=== PATIENT | female | born 2000 | race Caucasian/White ===

== ENCOUNTER 2021-08-21 07:59 | Emergency (ER) | payer OTHER, SELFPAY ==
--- NOTE | ~2021-08-21 | CT_ITS ---
EXAMINATION: CT abdomen pelvis w con DATE: 08/21/2021 09:45 INDICATION: Left flank pain. Left lower quadrant abdominal pain. TECHNIQUE: Computed tomography (CT) of the abdomen and pelvis was performed with 100 mL Omnipaque 350 intravenous contrast. Automated exposure control and iterative reconstruction technique were employe d. The dose-length product was 244.66 mGy-cm. COMPARISON: None. FINDINGS: The visualized portions of the lung bases are clear without pneumonia or pleural effusion. The heart size is normal. No pericardial effusion. The liver, gallbladder, spleen, pancreas, adrenal glands, and left kidney are normal. There are cysts in right kidney measuring up to 9 mm. There are n o dilated loops of bowel. The appendix is not visualized. There are no pathologically enlarged lymph nodes. There is no free intraperitoneal fluid. There is a small umbilical hernia containing fat. Ther e is a chronic left L5 pars defect. IMPRESSION: 1. Small umbilical hernia containing fat. Reviewed, dictated and finalized at location A.
[2021-08-21 08:12] VITALS: BP 100/72; PULSE 124; RESP 20; TEMP 37.3; O2SAT 96
[2021-08-21 08:43] LABS: Basophils Percent Auto 0.1 % (0.2-1.2); Eosinophils Percent Auto 0.1 % (0-4.4); Hematocrit 42.9 % (37.0-47.0); Hemoglobin 14.7 g/dL (12.0-15.0); Immature Granulocyte Absolute 0.02 K/mm3 (0.00-0.031); Immature Granulocyte Percent A 0.2 % (0-0.5); Lymphocytes Absolute Auto 0.41 K/mm3 (0.9-3.2); Lymphocytes Percent Auto 4.3 % (18.3-44.2); Mean Corpuscular HGB Conc 34.3 g/dl (32-36); Mean Corpuscular Hemoglobin 32.2 pg (26-34); Mean Corpuscular Volume 93.9 fl (80-100); Mean Platelet Volume 10.3 fl (7.4-10.4); Monocytes Absolute Auto 0.4 K/mm3 (0.1-0.6); Monocytes Percent Auto 3.7 % (2.6-8.5); Neutrophils Absolute Auto 8.8 K/mm3 (1.3-6.7); Neutrophils Percent Auto 91.6 % (45.5-73.1); Platelet Count Result 199 k/mm3 (150-375); Red Blood Count 4.57 M/mm3 (4.2-5.4); Red Cell Distribution Width 13.4 % (11.5-14.5); White Blood Count 9.6 K/mm3 (4.5-10.0)
[2021-08-21 08:48] LABS: Alanine Aminotransferase 153 U/L (4-35); Albumin Level 4.4 g/dL (3.5-5.1); Alkaline Phosphatase 103 U/L (38-126); Anion Gap 12 mmol/L (8-16); Aspartate Amino Transferase 72 U/L (14-36); Bilirubin,Total 0.9 mg/dL (0.2-1.3); Blood Urea Nitrogen 12 mg/dL (7-17); Calcium 9.1 mg/dL (8.4-10.2); Carbon Dioxide 25 mmol/L (22-30); Chloride 104 mmol/L (98-107); Estimated CRCL calculation 83 ml/min; Estimated Glomerular Filt Rate > 60; Glucose 133 mg/dL (65-110); Lipase 67 U/L (23-300); Potassium 3.7 mmol/L (3.4-5.0); Sodium 141 mmol/L (137-145)
[2021-08-21 09:01] LABS: Add Urine Microscopic? YES; Appearance Urine Clear (Clear); Bacteria Urine Trace /hpf; Bilirubin Urine Negative (Negative); Blood Urine 1+ (Negative); Color Urine Yellow (Yellow); Glucose Urine UA Negative (Negative); Ketones Urine Trace mg/dL (Negative); Leukocyte Esterase Ur Negative LEU/UL (Negative); Mucus Urine Rare /lpf; Nitrate Urine Negative (Negative); Protein Urine 1+ mg/dL (Negative); Specific Grav Ur 1.024 (1.001-1.035); Squamous Epithelial Cell Urine Few /hpf (Few); Urobilinogen Urine Negative mg/dL (<2.0); WBC Urine 0-3 /hpf
--- NOTE | 2021-08-21 09:38 | ED.GENADULT ---
HPI - General Adult General Chief complaint: Nausea/Vomiting/Diarrhea Stated complaint: vomiting Time Seen by Provider: 08/21/21 09:13 Source: patient Mode of arrival: ambulatory History of Present Illness HPI narrative: 21 years old white female presents with nausea and vomiting started yesterday afternoon associated with pain at the left flank area. Stressed with her menstrual cycle 2 days ago. Patient sexually active denies any urinary symptoms. Patient is not vaccinated for COVID-19, Related Data Home Medications Medication Instructions Recorded Confirmed paroxetine HCl [Paxil] 20 mg PO QAM 08/21/21 Allergies Allergy/AdvReac Type Severity Reaction Status Date / Time No Known Allergies Allergy Verified 08/21/21 08:15 Review of Systems Review of Systems: CONSTITUTIONAL: Denies fever, chills, or sweats. EYES: Denies visual changes, redness, or discharge. ENT: Denies rhinorrhea, congestion, sore throat, or otalgia. CARDIOVASCULAR: Denies chest pain, palpitations, or edema. RESPIRATORY: Denies cough or dyspnea. GASTROINTESTINAL: Denies abdominal pain, nausea, vomiting, or diarrhea. GENITOURINARY: Denies dysuria or hematuria. SKIN: Denies rash or itching. MUSCULOSKELETAL: Denies back pain, joint pain, or myalgia. NEUROLOGIC: Denies headache, numbness, or weakness. PSYCHIATRIC: Denies anxiety or depression. Exam Narrative: General appearance: Well-developed, well-nourished Skin: Normal color Head: Normocephalic, nontraumatic Eyes: Clear conjunctiva ENT: Oropharynx normal, ears normal, nose normal Neck: Supple, nontender Chest and respiratory: Airway patent, no respiratory distress, no accessory muscle use Heart: Regular rate/rhythm Abdomen: Diffuse tenderness left flank, slight left lower quadrant, no guarding or rebound, quiet bowel sounds Vascular: Normal peripheral pulses, normal capillary refill. Musculoskeletal: Normal range of motion, nontender back Neurologic: Alert and oriented ?3, [employer] is normal as tested, no gross motor deficit Course Course Emergency Course: Stable Vital Signs Vital signs: Vital Signs Temperature 37.3 C 08/21/21 08:12 Pulse Rate 124 H 08/21/21 08:12 Respiratory Rate 20 08/21/21 08:12 Blood Pressure 100/72 08/21/21 08:12 Pulse Oximetry 96 08/21/21 08:12 Temperature 37.3 C 08/21/21 08:12 Pulse Rate 124 H 08/21/21 08:12 Respiratory Rate 20 08/21/21 08:12 Blood Pressure 100/72 08/21/21 08:12 Pulse Oximetry 96 08/21/21 08:12 Medical Decision Making MDM Narrative Medical decision making narrative: Urinary tract infection, kidney stone is my concern. Labs, CT abdomen pelvis with IV contrast, IV fluid, IV morphine and Zofran ordered Work-up showed no significant findings to explain patient left flank pain and vomiting. Patient will be discharged on Zofran and ibuprofen as needed. Differential Diagnosis Differential Diagnosis: Kidney stone, pyelonephritis, urinary tract infection, constipation Vital Signs Vital Signs: Vital Signs Temperature 37.3 C 08/21/21 08:12 Pulse Rate 124 H 08/21/21 08:12 Respiratory Rate 20 08/21/21 08:12 Blood Pressure 100/72 08/21/21 08:12 Pulse Oximetry 96 08/21/21 08:12 Temperature 37.3 C 08/21/21 08:12 Pulse Rate 124 H 08/21/21 08:12 Respiratory Rate 20 08/21/21 08:12 Blood Pressure 100/72 08/21/21 08:12 Pulse Oximetry 96 08/21/21 08:12 Lab Data Result diagrams: 08/21/21 08:27 08/21/21 08:27 Labs: Lab Results 08/21/21 08/21/21 08/21/21 Range/Units 08:27 08:27 08:27 WBC 9.6 (4.5-10.0) K/mm3 RBC 4.57 (4.2-5.4) M/mm3 Hgb 14.7 (12.0-15.0) g/dL Hct
[2021-08-21] MEDS: ONDANSETRON INJ 4 MG/2 ML VIAL 8 MG IV PUSH (09:56)
[2021-08-21] MEDS: SODIUM CHLORIDE 0.9% IV 1,000 ML 999 ML IV CONT (09:56)
[2021-08-21] MEDS: MORPHINE SULFATE (*CRX) 4 MG/ML INJ IV PUSH (09:57)
--- NOTE | 2021-08-21 10:40 | PC.NURSE ---
pt states pain is 8/10 and continues to c/o nausea. requesting additional meds. edp aware.
[2021-08-21 10:55] VITALS: BP 99/69; PULSE 106; RESP 16
== END 2021-08-21 10:55 | disposition home or self-care (01) ==
PROVIDERS: Emergency Provider Emergency Medicine
DX: R11.2 Nausea with vomiting, unspecified (principal); K42.9 Umbilical hernia without obstruction or gangrene
CPT/HCPCS: 36415; 74177; 80053; 81001; 81025; 83690; 85025; 96361; 96374; 96375; 99284; J2270; J2405; J7030; Q9967

== ENCOUNTER 2022-03-13 10:45 | Emergency (ER) | payer OTHER, SELFPAY ==
--- NOTE | ~2022-03-13 | CT_ITS ---
EXAMINATION: CT abdomen pelvis w con DATE: 03/13/2022 14:36 INDICATION: Lower abdominal pain. Nausea, vomiting, diarrhea TECHNIQUE: Computed tomography (CT) of the abdomen and pelvis was performed with 100 CC Omnipaque 300 intravenous contrast. Automated exposure control and iterative reconstruction technique were employe d. Exam dose: 341.25 mGy-cm total exam DLP. COMPARISON: 08/21/2021 CT abdomen pelvis FINDINGS: The lung bases are clear. Normal heart size. No pericardial or pleural effusion. The liver, spleen, pancreas, gallbladder and bile ducts and pancreatic duct appear normal. Normal morphology of the adrenal glands. 8.5 mm and 5 mm upper pole right renal cysts. Pinpoint nonobstructing left renal calculus. No ureteral calculus or hydroureteronephrosis is noted. Retroverted uterus. The adnexal areas are unr emarkable other than 8 mm right ovarian cyst. The urinary bladder is normal in appearance. Normal caliber of the abdominal aorta. No intraperitoneal No bowel obstruction or intraperitoneal free air. Or retroperitoneal or pelvic mass lesion or adenopa thy or ascites. Small fat-containing umbilical hernia. Left L5 pars interarticularis defect. Included skeletal structures are otherwise remarkable. IMPRESSION: Right renal cysts Pinpoint nonobstructing left renal calculus Retroverted uterus Left L5 pars interarticularis defect Small fat-containing umbilical hernia Reviewed, dictated and finalized at Location [facility]. Reviewed, dictated and finalized at location B.
[2022-03-13 10:47] VITALS: BP 115/73; PULSE 120; RESP 16; TEMP 36.7; O2SAT 98
--- NOTE | 2022-03-13 12:34 | ED.NAVMDI ---
HPI - Nausea/Vomiting/Diarrhea General Chief complaint: Nausea/Vomiting/Diarrhea Stated complaint: vomiting/diarrhea Time Seen by Provider: 03/13/22 11:53 History of Present Illness HPI Narrative: 21 y/o female presents to the ER today for complaints of nausea, vomiting and diarrhea. It started around 6:30 this morning. She has not had any fever. She denies . She says that she gets intermittent sharp pains generalized through the abdomen. She says that it improves somewhat after emesis or diarrhea. She denies any urinary symptoms. No back pain. She has other family members with similar symptoms. Related Data Home Medications Medication Instructions Recorded Confirmed paroxetine HCl [Paxil] 20 mg PO QAM 08/21/21 albuterol sulfate INHALATION 03/13/22 metoprolol succinate PO 03/13/22 03/13/22 Allergies Allergy/AdvReac Type Severity Reaction Status Date / Time sertraline Allergy Headache Verified 03/13/22 11:05 Review of Systems Constitutional: Constitutional: Denies fever(s) and Denies weakness Eyes: Eyes: Reports as per HPI ENT: Denies nasal congestion and Reports sore throat Cardiovascular: Cardiovascular: Denies chest pain and Denies radiating jaw, neck or arm pain Respiratory: Respiratory: Reports no additional respiratory complaints, Denies cough and Denies dyspnea Gastrointestinal: Gastrointestinal: Reports abdominal pain, Reports diarrhea, Reports nausea and Reports vomiting Genitourinary: Genitourinary: Denies hematuria, Denies nocturia, Denies dysuria and Denies flank pain Musculoskeletal: Musculoskeletal: Denies back pain and Denies myalgias Integumentary/Breasts: Skin/Breast: Denies rash Neurologic: Denies dizziness Psychiatric: Psychiatric: Reports no additional psychiatric complaints Endocrine: Endocrine: Reports no additional endocrine complaints Hematologic/Lymphatic: Hematologic/Lymphatic: Reports no additional hematologic/lymphatic complaints Allergic/Immunologic: Allergic/Immunologic: Reports no additional allergic/immunologic complaints Exam Const: General: no acute distress and alert Orientation/consciousness: patient oriented x3 HENMT: Head: normal to inspection Eyes: Conjunctivae: conjunctivae normal Pupils: Equal, round and reactive pupils present Neck: Neck: normal visual inspection Chest: Chest palpation & inspection: normal inspection of the chest Resp: Effort & Inspection: normal respiratory effort Auscultation: clear to auscultation bilaterally Cardio: Rate: regular rate Rhythm: regular rhythm GI: GI Palp: Yes Soft to palpation, No Tenderness to palpation present (GI) and No Guarding due to palpation present (GI) Auscultation: normal bowel sounds : General: Yes no CVA tenderness Skin: General skin exam: normal color Neuro: General: patient oriented x3 and moves all extremities Extrem: General: normal to inspection Psych: Mental Status: mental status grossly normal Affect: normal affect Thought content: Yes Normal thought content present Course Vital Signs Vital signs: Vital Signs Temperature 36.7 C 03/13/22 10:47 Pulse Rate 120 H 03/13/22 10:47 Respiratory Rate 16 03/13/22 10:47 Blood Pressure 115/73 03/13/22 10:47 Pulse Oximetry 98 03/13/22 10:47 Temperature 36.7 C 03/13/22 10:47 Pulse Rate 120 H 03/13/22 10:47 Respiratory Rate 16 03/13/22 10:47 Blood Pressure 115/73 03/13/22 10:47 Pulse Oximetry 98 03/13/22 10:47 MDM - Nausea/Vomiting/Diarrhea Lab Data Attestation: I reviewed the patient's lab results. Result diagrams: 03/13/22 13:10 03/13/22 13:10 Labs: Lab Results 03/13/22 03/13/22 03/13/22 Range/Units 13:01 13:10 13:10 WBC 17.5 H (4.5-10.0) K/mm3 RBC 4.94 (4.2-5.4) M/mm3 Hgb 15.1 H (12.0-15.0) g/dL Hct 44.8 (37.0-47.0) % MCV 90.7 (80-100) fl MCH 30.6 (26-34) pg MCHC 33.7 (32-36) g/dl RDW 13.2 (11.5-14.5) % Pl
[2022-03-13 13:09] LABS: Add Urine Microscopic? YES; Appearance Urine Clear (Clear); Bilirubin Urine Negative (Negative); Blood Urine Trace-Intact (Negative); Color Urine Yellow (Yellow); Glucose Urine UA Negative (Negative); Ketones Urine Negative (Negative); Leukocyte Esterase Ur Negative LEU/UL (Negative); Nitrate Urine Negative (Negative); Protein Urine Negative (Negative); Urobilinogen Urine 0.2 mg/dL (<2.0)
[2022-03-13 13:12] LABS: Mucus Urine Rare /lpf; Squamous Epithelial Cell Urine Rare /hpf (Few); WBC Urine 0-3 /hpf
[2022-03-13] MEDS: ONDANSETRON INJ 4 MG/2 ML VIAL IV PUSH (13:14)
[2022-03-13] MEDS: SODIUM CHLORIDE 0.9% IV 1,000 ML 999 ML IV CONT (13:14)
[2022-03-13 13:25] LABS: Basophils Percent Auto 0.2 % (0.2-1.2); Eosinophils Percent Auto 0.1 % (0-4.4); Hematocrit 44.8 % (37.0-47.0); Hemoglobin 15.1 g/dL (12.0-15.0); Immature Granulocyte Absolute 0.06 K/mm3 (0.00-0.031); Immature Granulocyte Percent A 0.3 % (0-0.5); Lymphocytes Absolute Auto 0.61 K/mm3 (0.9-3.2); Lymphocytes Percent Auto 3.5 % (18.3-44.2); Mean Corpuscular HGB Conc 33.7 g/dl (32-36); Mean Corpuscular Hemoglobin 30.6 pg (26-34); Mean Corpuscular Volume 90.7 fl (80-100); Mean Platelet Volume 9.6 fl (7.4-10.4); Monocytes Absolute Auto 0.7 K/mm3 (0.1-0.6); Monocytes Percent Auto 3.8 % (2.6-8.5); Neutrophils Absolute Auto 16.2 K/mm3 (1.3-6.7); Neutrophils Percent Auto 92.1 % (45.5-73.1); Platelet Count Result 256 k/mm3 (150-375); Red Blood Count 4.94 M/mm3 (4.2-5.4); Red Cell Distribution Width 13.2 % (11.5-14.5); White Blood Count 17.5 K/mm3 (4.5-10.0)
[2022-03-13 13:36] LABS: Alanine Aminotransferase 21 U/L (6-35); Albumin Level 4.5 g/dL (3.5-5.1); Alkaline Phosphatase 127 U/L (38-126); Anion Gap 10 mmol/L (8-16); Aspartate Amino Transferase 28 U/L (14-36); Bilirubin,Total 0.9 mg/dL (0.2-1.3); Blood Urea Nitrogen 16 mg/dL (7-17); Carbon Dioxide 27 mmol/L (22-30); Chloride 103 mmol/L (98-107); Estimated CRCL calculation 96 ml/min; Estimated Glomerular Filt Rate > 60; Glucose 131 mg/dL (65-110); Lipase 100 U/L (23-300); Potassium 3.8 mmol/L (3.4-5.0); Sodium 140 mmol/L (137-145)
[2022-03-13 14:04] LABS: SARS-CoV-2 RNA PCR Negative
[2022-03-13] MEDS: PROMETHAZINE HCL 25 MG/ML AMPUL 12.5 MG IV PUSH (14:49)
[2022-03-13] MEDS: KETOROLAC 30 MG/ML VIAL (*BKC) IV PUSH (15:38)
--- NOTE | 2022-03-13 15:54 | PC.NURSE ---
PT STATES SHE WAS TREATED POORLY BECAUSE OF HER RACE AND POOR INSURANCE . PT STATED HER MOTHER IN LAW WAS NOT ALLOWED TO STAY WITH HER IN THE WAITING ROOM AND SHE (THE PT) HAS WAITED A LONG TIME FOR ANYONE TO HELP HER .
== END 2022-03-13 16:03 | disposition home or self-care (01) ==
PROVIDERS: Emergency Provider Nurse Practitioner Family; PCP Internal Medicine
DX: K52.9 Noninfective gastroenteritis and colitis, unspecified (principal); Z20.822 Contact with and (suspected) exposure to COVID-19; N28.1 Cyst of kidney, acquired; N20.0 Calculus of kidney; N85.4 Malposition of uterus; K42.9 Umbilical hernia without obstruction or gangrene
CPT/HCPCS: 36415; 74177; 80053; 81001; 81025; 83690; 85025; 96361; 96374; 96375; 99284; C9803; J1885; J2405; J2550; J7030; Q9967; U0003; U0005

== ENCOUNTER 2022-09-21 12:49 | Observation (INO) | payer OTHER, SELFPAY ==
--- NOTE | ~2022-09-21 | US_ITS ---
EXAMINATION: US abdomen complete DATE: 09/21/2022 14:50 INDICATION: check for appendix and gallbladder, right side pain TECHNIQUE: Multiple grayscale and Doppler ultrasound images of the abdomen were obtained. COMPARISON: CT abdomen and pelvis 03/13/2022. FINDINGS: Pancreas not visualized. The liver is normal with normal echogenicity and echotexture. No s urface nodularity. Normal hepatopetal flow in the main portal vein. The gallbladder is normal with no abnormal wall thickening, pericholecystic fluid or stones. The common bile duct measures 4 mm. There was no sonographic Howard sign. The visualized portions of the inferior vena cava are normal. Aorta not visualized. The right kidney measures 10.9 x 4.2 x 6.2. The left kidney measures 11.5 x 4.6 x 5.5. The kidneys de monstrate normal parenchymal echogenicity. There is no hydronephrosis. The spleen is normal in appear ance and measures 13.6 cm. The right lower quadrant (area of pain) was carefully interrogated, revealing no abnormality, however bowel gas did create areas of obscuration. The appendix was not positively identified. IMPRESSION: Appendix not visualized, this examination is equivocal in regards to the diagnosis of appendicitis. M ild splenomegaly. Pancreas not visualized. Otherwise normal abdominal ultrasound findings. Reviewed, dictated and finalized at location K. ATION THERAPIST IMPRESSION: Appendix not visualized, this examination is equivocal in regards to the diagno sis of appendicitis. Mild splenomegaly. Pancreas not visualized. Otherwise norm al abdominal ultrasound findings.
[2022-09-21] MEDS: ONDANSETRON INJ 4 MG/2 ML VIAL IV PUSH (13:36)
[2022-09-21] MEDS: LACTATED RINGERS 1,000 ML 125 ML IV CONT (13:37)
[2022-09-21 13:38] VITALS: BP 95/60; PULSE 102
[2022-09-21 13:45] VITALS: BP 96/63; PULSE 99
[2022-09-21 14:06] LABS: Basophils Percent Auto 0.1 % (0.2-1.2); Hematocrit 35.5 % (37.0-47.0); Hemoglobin 11.9 g/dL (12.0-15.0); Immature Granulocyte Absolute 0.06 K/mm3 (0.00-0.031); Immature Granulocyte Percent A 0.6 % (0-0.5); Lymphocytes Absolute Auto 0.61 K/mm3 (0.9-3.2); Lymphocytes Percent Auto 6.6 % (18.3-44.2); Mean Corpuscular HGB Conc 33.5 g/dl (32-36); Mean Corpuscular Hemoglobin 31.5 pg (26-34); Mean Corpuscular Volume 93.9 fl (80-100); Monocytes Absolute Auto 0.4 K/mm3 (0.1-0.6); Monocytes Percent Auto 4.1 % (2.6-8.5); Neutrophils Absolute Auto 8.2 K/mm3 (1.3-6.7); Neutrophils Percent Auto 88.6 % (45.5-73.1); Platelet Count Result 203 k/mm3 (150-375); Red Blood Count 3.78 M/mm3 (4.2-5.4); Red Cell Distribution Width 13.9 % (11.5-14.5); White Blood Count 9.3 K/mm3 (4.5-10.0)
[2022-09-21 14:07] LABS: Appearance Urine Slightly Cloudy (Clear); Bilirubin Urine 1+ (Negative); Blood Urine Negative (Negative); Color Urine Yellow (Yellow); Glucose Urine UA Negative (Negative); Ketones Urine 4+ mg/dL (Negative); Leukocyte Esterase Ur Negative LEU/UL (Negative); Nitrate Urine Negative (Negative); Protein Urine 1+ mg/dL (Negative); Specific Grav Ur 1.025 (1.001-1.035)
[2022-09-21 14:09] LABS: Bacteria Urine Trace /hpf; Mucus Urine Rare /lpf; Squamous Epithelial Cell Urine Many /hpf (Few)
[2022-09-21 14:12] LABS: Add Urine Microscopic? YES
[2022-09-21 14:20] LABS: Alanine Aminotransferase 14 U/L (6-35); Albumin Level 3.7 g/dL (3.5-5.1); Alkaline Phosphatase 122 U/L (38-126); Amylase 76 U/L (30-110); Anion Gap 9 mmol/L (8-16); Aspartate Amino Transferase 20 U/L (14-36); Bilirubin,Total 0.5 mg/dL (0.2-1.3); Blood Urea Nitrogen 9 mg/dL (7-17); Calcium 8.3 mg/dL (8.4-10.2); Carbon Dioxide 24 mmol/L (22-30); Chloride 105 mmol/L (98-107); Estimated Glomerular Filt Rate > 60; Glucose 95 mg/dL (65-110); Lipase 71 U/L (23-300); Potassium 3.6 mmol/L (3.4-5.0); Sodium 138 mmol/L (137-145)
[2022-09-21] MEDS: LACTATED RINGERS 1,000 ML 250 ML IV CONT (15:07)
--- NOTE | 2022-09-21 15:32 | PC.NURSE ---
Dr. Desirae Becerra responded to page. Lab result and ultrasound result reported. pt still has nausea. phenegran order received. okay to discharge when pt feels better.
[2022-09-21] MEDS: PROMETHAZINE HCL 25 MG/ML AMPUL 12.5 MG IV PUSH (15:46)
--- NOTE | 2022-09-21 18:00 | PC.NURSE ---
pt states nausea is still there but pain is gone. requested to be discharged.
--- NOTE | 2022-09-24 07:45 | P.PNOB_ITS ---
OB - Triage/Final Diagnosis Visit Information Reason for evaluation: threatened labor Comments/Additional reasons for admission: I have assessed the risk for this patient, Codi Keller, and determined that she would benefit from observation care. Evaluation Laboratory results: Laboratory Tests 09/21/22 09/21/22 09/21/22 13:57 13:57 13:57 WBC 9.3 RBC 3.78 L Hgb 11.9 L D Hct 35.5 L MCV 93.9 MCH 31.5 MCHC 33.5 RDW 13.9 Plt Count 203 MPV 10.0 Immature Gran % (Auto) 0.6 H Neut % (Auto) 88.6 H Lymph % (Auto) 6.6 L [place] % (Auto) 4.1 Eos % (Auto) 0.0 Baso % (Auto) 0.1 L Lymph # (Auto) 0.61 L [place] # (Auto) 0.4 Eos # (Auto) 0.0 Baso # (Auto) 0.0 Abs Immat Gran (auto) 0.06 H Absolute Neuts (auto) 8.2 H Absolute Nucleated RBC 0.0 Nucleated RBC % 0.0 Sodium 138 Potassium 3.6 Chloride 105 Carbon Dioxide 24 Anion Gap 9 BUN 9 D Creatinine 0.60 L Estim Creat Clear Calc Not Reportable Estimated GFR > 60 Glucose 95 Calcium 8.3 L Total Bilirubin 0.5 AST 20 ALT 14 Alkaline Phosphatase 122 Total Protein 7.0 Albumin 3.7 Amylase 76 Lipase 71 Urine Color Yellow Urine Appearance Slightly cloudy Urine pH 7.0 Ur Specific [place] 1.025 Urine Protein 1+ H Urine Glucose (UA) Negative Urine Ketones 4+ H Ur Blood (Man) Negative Urine Nitrate Negative Urine Bilirubin 1+ H Urine Urobilinogen 1.0 Leukocyte Esterase Rfl Negative Urine RBC 6-10 H Urine WBC 4-6 H Ur Squamous Epith Cells Many H Urine Bacteria Trace Urine Mucus Rare
== END 2022-09-21 18:04 | disposition home or self-care (01) ==
PROVIDERS: Admitting Provider Obstetrics & Gynecology; PCP Internal Medicine; Visit Provider Obstetrics & Gynecology
DX: O47.02 False labor before 37 completed weeks of gestation, second trimester (principal); Z3A.21 21 weeks gestation of pregnancy
CPT/HCPCS: 36415; 76700; 80053; 81001; 82150; 83690; 85025; 96361; 96374; 96375; G0378; G0379; J2405; J2550; J7120

== ENCOUNTER 2022-11-27 21:22 | Observation (INO) | payer OTHER, SELFPAY ==
[2022-11-27] VITALS (22 sets, daily range): BP systolic 96–109; BP diastolic 61–73; PULSE 101–132; O2SAT 96–99; BMI 27.5
[2022-11-27 21:59] LABS: Appearance Urine Slightly Cloudy (Clear); Bilirubin Urine Negative (Negative); Blood Urine Negative (Negative); Color Urine Yellow (Yellow); Glucose Urine UA Negative (Negative); Ketones Urine 4+ mg/dL (Negative); Leukocyte Esterase Ur 1+ LEU/UL (Negative); Nitrate Urine Negative (Negative); Protein Urine 1+ mg/dL (Negative); Specific Grav Ur >= 1.030 (1.001-1.035); Urobilinogen Urine 0.2 mg/dL (<2.0); pH Urine 5.5 (5.0-9.0)
--- NOTE | 2022-11-27 21:59 | OBADM ---
This patient, Codi Keller, admitted to the OB room OB Post 115 for observation. Patient/family oriented to hospital policies and general routines including ID bracelet, bed and alarms, visiting hours, pain management, procedures, bathroom and other care routines, personal items, smoking policy, room service/diet, and visiting hours. Patient/Family are encouraged to report perceived risks to care and to ask questions if they do not understand what they are told or what they should do.
[2022-11-27 22:06] LABS: Bacteria Urine Trace /hpf; Mucus Urine Rare /lpf; Squamous Epithelial Cell Urine Many /hpf (Few); WBC Urine 21-30 /hpf
[2022-11-27 22:07] LABS: Add Urine Microscopic? YES
[2022-11-27] MEDS: DEXTROSE 5%/LACTATED RINGERS 1,000 ML 999 ML IV CONT (23:31)
[2022-11-27] MEDS: ONDANSETRON INJ 4 MG/2 ML VIAL IV PUSH (23:32)
[2022-11-28 00:09] VITALS: PULSE 99; O2SAT 97
[2022-11-28 00:14] VITALS: PULSE 93; O2SAT 100
[2022-11-28] MEDS: DEXTROSE 5%/LACTATED RINGERS 1,000 ML 500 ML IV CONT (01:00)
[2022-11-28 01:24] VITALS: BP 100/58; PULSE 115
--- NOTE | 2022-12-20 12:38 | P.PNOB_ITS ---
OB - Triage/Final Diagnosis Visit Information Comments/Additional reasons for admission: I have assessed the risk for this patient, Codi Keller, and determined that she would benefit from observation care. Evaluation Laboratory results: Laboratory Tests 11/27/22 21:50 Urine Color Yellow Urine Appearance Slightly cloudy Urine pH 5.5 Ur Specific [place] >= 1.030 Urine Protein 1+ H Urine Glucose (UA) Negative Urine Ketones 4+ H Ur Blood (Man) Negative Urine Nitrate Negative Urine Bilirubin Negative Urine Urobilinogen 0.2 Leukocyte Esterase Rfl 1+ H Urine RBC 3-5 H Urine WBC 21-30 H Ur Squamous Epith Cells Many H Urine Bacteria Trace Urine Mucus Rare Final Diagnosis (1) Nausea and vomiting during : Code(s): O21.9 - Vomiting of , unspecified Status: Acute
== END 2022-11-28 03:14 | disposition home or self-care (01) ==
PROVIDERS: Admitting Provider Obstetrics & Gynecology; PCP Internal Medicine; Visit Provider Obstetrics & Gynecology
DX: O26.899 Other specified pregnancy related conditions, unspecified trimester (principal); R11.2 Nausea with vomiting, unspecified; R10.9 Unspecified abdominal pain
CPT/HCPCS: 81001; 87086; 96361; 96374; G0378; G0379; J2405; J7121

== ENCOUNTER 2022-12-29 19:18 | Observation (INO) | payer OTHER, SELFPAY ==
[2022-12-29 19:30] VITALS: BMI 29.2
--- NOTE | 2022-12-29 19:30 | OBADM ---
This patient, Codi Keller, admitted to the OB room [facility] Post 113 for observation. Patient/family oriented to hospital policies and general routines including ID bracelet, bed and alarms, visiting hours, pain management, procedures, bathroom and other care routines, personal items, smoking policy, room service/diet, and visiting hours. Patient/Family are encouraged to report perceived risks to care and to ask questions if they do not understand what they are told or what they should do.
[2022-12-29 19:46] VITALS: BP 103/68; PULSE 66
--- NOTE | 2023-01-01 07:21 | PM.OBTRLD ---
OB - Triage/Final Diagnosis Visit Information Date of evaluation: 01/01/23 Reason for evaluation: threatened labor Comments/Additional reasons for admission: I have assessed the risk for this patient, Codi Crane Luis Mmago, and determined that she would benefit from observation care.
== END 2022-12-29 20:37 | disposition home or self-care (01) ==
PROVIDERS: Admitting Provider Obstetrics & Gynecology; PCP Internal Medicine; Visit Provider Obstetrics & Gynecology
DX: O47.03 False labor before 37 completed weeks of gestation, third trimester (principal); O24.419 Gestational diabetes mellitus in pregnancy, unspecified control; Z3A.35 35 weeks gestation of pregnancy
CPT/HCPCS: 84112; G0378

== ENCOUNTER 2023-01-10 10:00 | Outpatient (RCR) | payer OTHER, SELFPAY ==
[2022-11-21 08:56] VITALS: BMI 24.1
[2022-11-21 08:57] VITALS: BMI 24.1
== END 2023-01-13 07:16 | disposition home or self-care (01) ==
LOC: ANHOBOP 10:00
PROVIDERS: PCP Internal Medicine; Visit Provider Obstetrics & Gynecology
DX: O24.319 Unspecified pre-existing diabetes mellitus in pregnancy, unspecified trimester (principal); Z71.3 Dietary counseling and surveillance; Z71.89 Other specified counseling
CPT/HCPCS: 97802; G0108

== ENCOUNTER 2023-01-15 19:12 | Observation (INO) | payer OTHER, SELFPAY ==
--- NOTE | 2023-01-15 20:33 | OBADM ---
This patient, Codi Keller, admitted to the OB room Labor/Delivery/Recovery 107 for observation. Patient/family oriented to hospital policies and general routines including ID bracelet, bed and alarms, visiting hours, pain management, procedures, bathroom and other care routines, personal items, smoking policy, room service/diet, and visiting hours. Patient/Family are encouraged to report perceived risks to care and to ask questions if they do not understand what they are told or what they should do.
--- NOTE | 2023-01-17 06:31 | PM.OBTRLD ---
OB - Triage/Final Diagnosis Visit Information Reason for evaluation: threatened labor Comments/Additional reasons for admission: I have assessed the risk for this patient, Codi Keller, and determined that she would benefit from observation care.
== END 2023-01-15 20:45 | disposition home or self-care (01) ==
PROVIDERS: Admitting Provider Obstetrics & Gynecology; PCP Internal Medicine; Visit Provider Obstetrics & Gynecology
DX: O47.9 False labor, unspecified (principal); O26.899 Other specified pregnancy related conditions, unspecified trimester; R10.9 Unspecified abdominal pain; O24.419 Gestational diabetes mellitus in pregnancy, unspecified control; Z3A.00 Weeks of gestation of pregnancy not specified
CPT/HCPCS: G0378; G0379

== ENCOUNTER 2023-01-17 10:25 | Outpatient (RCR) | payer OTHER, SELFPAY ==
[2022-12-13 12:03] VITALS: BP 97/61; PULSE 98
[2022-12-20 11:28] VITALS: BP 107/70; PULSE 85
[2022-12-27 10:38] VITALS: BP 104/66; PULSE 81
[2023-01-03 14:05] VITALS: BP 100/67; PULSE 81
[2023-01-05 22:50] VITALS: BP 112/72; PULSE 95
--- NOTE | 2023-01-05 22:50 | PC.NURSE ---
Labor precautions reviewed with patient. Patient educated on kick counts. Patient states understanding of education and states she is comfortable going home and is feeling baby move more. VSS. Patient left OB unit ambulating at 2256.
[2023-01-10 10:33] VITALS: BP 101/67; PULSE 116
[2023-01-17 10:52] VITALS: BP 109/72; PULSE 106
== END 2023-02-21 15:11 | disposition home or self-care (01) ==
LOC: ANHOBOP 10:25
PROVIDERS: PCP Internal Medicine; Visit Provider Obstetrics & Gynecology
DX: O24.419 Gestational diabetes mellitus in pregnancy, unspecified control (principal); Z3A.33 33 weeks gestation of pregnancy; Z3A.34 34 weeks gestation of pregnancy; Z3A.35 35 weeks gestation of pregnancy; O36.8130 Decreased fetal movements, third trimester, not applicable or unspecified; Z3A.36 36 weeks gestation of pregnancy; Z3A.37 37 weeks gestation of pregnancy; Z3A.38 38 weeks gestation of pregnancy
CPT/HCPCS: 59025

== ENCOUNTER 2023-01-22 10:49 | Inpatient (IN) | payer OTHER, SELFPAY ==
[2023-01-22] VITALS (146 sets, daily range): BP systolic 65–127; BP diastolic 25–93; PULSE 25–133; TEMP 36.6; O2SAT 76–100; BMI 30.2
[2023-01-22 11:43] LABS: Glucose Point of Care 79 mg/dl (65-105)
[2023-01-22 11:47] LABS: Eosinophils Percent Auto 0.6 % (0-4.4); Hematocrit 31.8 % (37.0-47.0); Hemoglobin 10.1 g/dL (12.0-15.0); Immature Granulocyte Percent A 0.4 % (0-0.5); Lymphocytes Percent Auto 23.7 % (18.3-44.2); Mean Corpuscular HGB Conc 31.8 g/dl (32-36); Mean Corpuscular Hemoglobin 25.8 pg (26-34); Mean Corpuscular Volume 81.3 fl (80-100); Mean Platelet Volume 11.7 fl (7.4-10.4); Monocytes Percent Auto 5.7 % (2.6-8.5); Neutrophils Percent Auto 69.4 % (45.5-73.1); Platelet Count Result 187 k/mm3 (150-375); Red Blood Count 3.91 M/mm3 (4.2-5.4); Red Cell Distribution Width 14.6 % (11.5-14.5); White Blood Count 10.1 K/mm3 (4.5-10.0)
[2023-01-22 11:48] LABS: Basophils Percent Auto 0.2 % (0.2-1.2); Eosinophils Absolute Auto 0.1 K/mm3 (0-0.3); Immature Granulocyte Absolute 0.04 K/mm3 (0.00-0.031); Monocytes Absolute Auto 0.6 K/mm3 (0.1-0.6)
[2023-01-22] MEDS: LACTATED RINGERS 1,000 ML 125 ML IV CONT ×3 (11:50→18:38)
--- NOTE | 2023-01-22 11:56 | LDADM ---
This patient, Codi Keller, was admitted to Labor/Delivery/Recovery 108 on 01/22/23 at 10:49. Plans for labor, pain management and were discussed with patient. Patient/family oriented to hospital policies and general routines including ID bracelet, bed and alarms, visiting hours, pain management, procedures, bathroom and other care routines, personal items, smoking policy, room service/diet and guest tray routines, security routines, and visiting hours. Patient/Family are encouraged to report perceived risks to care and to ask questions if they do not understand what they are told or what they should do. See OBIX for further documentation.
[2023-01-22] MEDS: fentaNYL CITRATE INJ (*CRX) 100 MCG/2 ML VIAL 50 MCG IV PUSH (12:04)
--- NOTE | 2023-01-22 13:03 | WPDANESEPP ---
Anes - Eval Pre Procedure Procedure: Labor epidural Date/Time: 01/22/23 13:03 Surgeon: Janina Preop Diagnosis: Pain during labor Pre Op Diagnosis: iol Patient Data Age: 22 Gender: F Height: 1.63 m Weight: 80 kg Last Vital Signs Pulse 101 H 01/22/23 13:00 BP 127/78 01/22/23 13:00 Pulse Ox 100 01/22/23 13:00 O2 Del Method Room Air 01/22/23 11:52 Allergies Allergy/AdvReac Type Severity Reaction Status Date / Time Latex, Natural Rubber Allergy Rash Verified 01/03/23 13:55 midodrine Allergy Rash Verified 01/03/23 13:39 sertraline AdvReac Headache Verified 01/03/23 13:39 Home Medications Medication Instructions Recorded Confirmed Type ondansetron HCl 4 mg tablet 4 mg PO Q6H PRN nausea and 08/21/21 12/20/22 Rx (Zofran) vomiting #10 tabs albuterol sulfate 90 mcg/actuation 2 puff inhalation Q4H PRN 03/13/22 12/20/22 History aerosol inhaler Shortness Of Breath metoprolol succinate 25 mg 25 mg PO HS 03/13/22 12/20/22 History tablet,extended release 24 hr promethazine 25 mg tablet 25 mg PO Q6H PRN nausea and 09/21/22 12/20/22 Rx vomiting #14 tabs fluoxetine 40 mg capsule 80 mg PO DAILY 01/03/23 01/03/23 History promethazine 12.5 mg tablet 12.5 mg PO Q6H PRN Nausea 01/03/23 01/03/23 History Laboratory Tests 01/22/23 01/22/23 01/22/23 11:39 11:40 11:40 WBC 10.1 K/mm3 H K/mm3 (4.5-10.0) RBC 3.91 M/mm3 L M/mm3 (4.2-5.4) Hgb 10.1 g/dL L g/dL (12.0-15.0) Hct 31.8 % L % (37.0-47.0) MCV 81.3 fl fl (80-100) MCH 25.8 pg L pg (26-34) MCHC 31.8 g/dl L g/dl (32-36) RDW 14.6 % H % (11.5-14.5) Plt Count 187 k/mm3 k/mm3 (150-375) MPV 11.7 fl H fl (7.4-10.4) Immature Gran % (Auto) 0.4 % % (0-0.5) Neut % (Auto) 69.4 % % (45.5-73.1) Lymph % (Auto) 23.7 % % (18.3-44.2) [place] % (Auto) 5.7 % % (2.6-8.5) Eos % (Auto) 0.6 % % (0-4.4) Baso % (Auto) 0.2 % % (0.2-1.2) Lymph # (Auto) 2.40 K/mm3 K/mm3 (0.9-3.2) [place] # (Auto) 0.6 K/mm3 K/mm3 (0.1-0.6) Eos # (Auto) 0.1 K/mm3 K/mm3 (0-0.3) Baso # (Auto) 0.0 K/mm3 K/mm3 (0.0-0.1) Abs Immat Gran (auto) 0.04 K/mm3 H K/mm3 (0.00-0.031) Absolute Neuts (auto) 7.0 K/mm3 H K/mm3 (1.3-6.7) Absolute Nucleated RBC 0.0 K/mm3 K/mm3 (0.0-0.012) Nucleated RBC % 0.0 % % (0.0-0.2) POC Capillary Glucose 79 mg/dl mg/dl (65-105) RPR Pending Blood Type Antibody Screen 01/22/23 11:40 WBC RBC Hgb Hct MCV MCH MCHC RDW Plt Count MPV Immature Gran % (Auto) Neut % (Auto) Lymph % (Auto) [place] % (Auto) Eos % (Auto) Baso % (Auto) Lymph # (Auto) [place] # (Auto) Eos # (Auto) Baso # (Auto) Abs Immat Gran (auto) Absolute Neuts (auto) Absolute Nucleated RBC Nucleated RBC % POC Capillary Glucose RPR Blood Type O Positive Antibody Screen Negative Patient hx anesthesia problems: none Family hx anesthesia problems: none Results Review: All pre-operative results and documents have been reviewed as part of the pre-operative evaluation. [facility] Family History Family History Father Hypertension Diabetes mellitus Cerebrovascular accident Grandparent Hypertension Diabetes mellitus Congestive heart failure Sibling Hypothyroid Social History Social History Smoking status: Never smoker Substance use: never Lack of Transportation: No Lack of Food: Never True Current Housing: I Have Housing Concerned About Future Housing: No Difficulty Paying Gas/
[2023-01-22] MEDS: ONDANSETRON INJ 4 MG/2 ML VIAL IV PUSH ×2 (14:31→20:27)
--- NOTE | 2023-01-22 15:30 | PM.IMHP ---
H&P: HPI History of Present Illness Date/Time: 01/22/23 16:24 Chief Complaint: Water broke Narrative: 22 y/o G1 at 39 1/7 weeks who had a gush of clear fluid at 0900 today, followed by contractions. A1DM, well controlled. GBS neg. Review of Systems Review of Systems: All systems reviewed & are unremarkable except as noted in HPI and below PMFSH Past Medical History Medical History Anxiety and depression Frequent headaches GERD (gastroesophageal reflux disease) Gestational diabetes mellitus (GDM) Surgical History Surgical History History of placement of ear tubes History of tonsillectomy Family History Family History Father Hypertension Diabetes mellitus Cerebrovascular accident Grandparent Hypertension Diabetes mellitus Congestive heart failure Sibling Hypothyroid Social History Social History Smoking status: Never smoker Substance use: never Lack of Transportation: No Lack of Food: Never True Current Housing: I Have Housing Concerned About Future Housing: No Difficulty Paying Gas/Electric Bills: No Difficulty Paying for Meds: No Currently Unemployed: No Education: High School Diploma/GED Difficulty w/ Childcare or Family Care: No Spiritual care concerns: No Meds Home Medications and Allergies Home Medications Medication Instructions Recorded Confirmed Type ondansetron HCl 4 mg tablet 4 mg PO Q6H PRN nausea and 08/21/21 01/22/23 Rx (Zofran) vomiting #10 tabs albuterol sulfate 90 mcg/actuation 2 puff inhalation Q4H PRN 03/13/22 01/22/23 History aerosol inhaler Shortness Of Breath metoprolol succinate 25 mg 25 mg PO HS 03/13/22 01/22/23 History tablet,extended release 24 hr promethazine 25 mg tablet 25 mg PO Q6H PRN nausea and 09/21/22 01/22/23 Rx vomiting #14 tabs fluoxetine 40 mg capsule 80 mg PO DAILY 01/03/23 01/22/23 History promethazine 12.5 mg tablet 12.5 mg PO Q6H PRN Nausea 01/03/23 01/03/23 History Allergies Allergy/AdvReac Type Severity Reaction Status Date / Time Latex, Natural Rubber Allergy Rash Verified 01/03/23 13:55 midodrine Allergy Rash Verified 01/03/23 13:39 sertraline AdvReac Headache Verified 01/03/23 13:39 Vital Signs Vital Signs - 24 hr 01/22/23 11:52 01/22/23 12:16 01/22/23 12:32 Pulse Rate 65 72 Blood Pressure 111/81 98/55 L Pulse Oximetry Oxygen Delivery Room Air 01/22/23 12:45 01/22/23 12:55 01/22/23 12:59 Pulse Rate 81 90 Blood Pressure 93/60 L 112/90 Pulse Oximetry 100 Oxygen Delivery 01/22/23 13:00 01/22/23 13:05 01/22/23 13:10 Pulse Rate 101 H Blood Pressure 127/78 Pulse Oximetry 100 100 100 Oxygen Delivery 01/22/23 13:15 01/22/23 13:19 01/22/23 13:20 Pulse Rate 110 H 102 H 92 Blood Pressure 112/86 117/85 121/84 Pulse Oximetry Oxygen Delivery 01/22/23 13:22 01/22/23 13:24 01/22/23 13:26 Pulse Rate 105 H 84 95 Blood Pressure 122/65 116/73 112/77 Pulse Oximetry 94 Oxygen Delivery 01/22/23 13:27 01/22/23 13:28 01/22/23 13:30 Pulse Rate 86 89 Blood Pressure 112/68 110/77 Pulse Oximetry 96 Oxygen Delivery 01/22/23 13:32 01/22/23 13:34 01/22/23 13:36 Pulse Rate 88 94 82 Blood Pressure 116/72 111/72 114/75 Pulse Oximetry 98 Oxygen Delivery 01/22/23 13:37 01/22/23 13:38 01/22/23 13:40 Pulse Rate 86 81 Blood Pressure 116/77 109/68 Pulse Oximetry 96 Oxygen Delivery 01/22/23 13:42 01/22/23 13:45 01/22/23 13:47 Pulse Rate 94 78 75 Blood Pressure 116/65 117/66 110/62 Pulse Oximetry 97 95 Oxygen Delivery 01/22/23 13:48 01/22/23 13:50 01/22/23 13:52 Pulse Rate 77 74 73 Blood Pressure 109/62 120/74 120/60 Pulse Oximetry 96 Oxygen Delivery 01/22/23 13:54 01/22/23 13:56 0
[2023-01-22] MEDS: METOPROLOL SUCCINATE EXT REL 25 MG TABCR PO (17:03)
[2023-01-22 17:09] LABS: Glucose Point of Care 56 mg/dl (65-105)
[2023-01-22] MEDS: FLUoxetine HCL 20 MG CAPSULE 60 MG PO (17:42)
[2023-01-22 21:00] LABS: Glucose Point of Care 72 mg/dl (65-105)
--- NOTE | 2023-01-22 21:19 | PM.OBPNLAB ---
Pain Control Date/time seen: 01/22/23 21:19 Comments: Pushing well. Pelvic Exam Dilation (cm): 10 Effacement (%): 100 station: +2 Contractions Contraction frequency: 3 Contraction pattern: Regular Status status: Category l Comments: Accuchecks normal Assessment and Plan Comments: Continue pushing.
[2023-01-22] MEDS: OXYTOCIN 30 UNITS/NS 500 ML 30 UNITS/500 ML BAG 999 UNITS IV CONT (21:37)
--- NOTE | 2023-01-22 21:44 | PM.OBPRVD ---
OB - Delivery Note Procedure Delivery date: 01/22/23 Procedure: Events: Gestational Diabetes Induction method: None Delivery monitor: External FHT, External Uterine and Internal Uterine Laceration Description: None Specimen: Yes (cord blood, placenta) Quantitative Blood Loss (ml): 120 Anesthesia type: Epidural Disposition: PACU Complications: None Narrative: 22 y/o G1 at 39 1/7 weeks gestation who presented to the hospital after a gush of fluid. SROM was diagnosed. Accuchecks were normal throughout labor. She received an epidural for pain control. Her labor progressed without stimulation and her cervix dilated completely. She pushed with good effort and delivered the infant's head to the perineum. A loose nuchal cord was splinted and the body delivered. The cord was reduced, and the nose and mouth were bulb suctioned. After a delay, the cord was clamped and cut. The infant was handed off the field. Cord blood was collected. The placenta delivered spontaneously and was grossly normal in appearance. The usual 3 vessel cord was noted. There were no lacerations. Needle and instrument counts were correct. The patient was taken to recovery room in stable condition. The infant went to the nursery in stable condition. I was present and scrubbed for the entire delivery. [place] Baby Date of : 01/22/23 Time of : 21:34 Weeks of gestation at delivery: 39 Infant gender: Male Weight (pounds): 6 Weight (ounces): 14 presentation: vertex position: Right Occiput Anterior Placenta delivery description: Spontaneous and Normal Configuration Cord Vessel Description: 3 Vessels, Nuchal Cord and Delayed Cord Clamping score one minute: 7 score five minutes: 8
--- NOTE | 2023-01-22 21:44 | PM.OBDSVD ---
DS: Admitting Diagnosis Discharge Date 01/24/23 Admitting Diagnosis IUP at 39 weeks SROM A1DM DS: Discharge Diagnosis Discharge Diagnosis (1) SROM (spontaneous rupture of membranes): Status: Acute (2) Gestational diabetes mellitus (GDM): Code(s): O24.419 - Gestational diabetes mellitus in , unspecified control Status: Chronic (3) (normal spontaneous vaginal delivery): Code(s): O80 - Encounter for full-term uncomplicated delivery Status: Acute OB - DS: Summary OB Procedures : None OB Procedures Intrapartum: Spontaneous Vag Delivery OB Procedures: : None Time Spent with Patient Time attestation: Total time spent providing and/or coordinating discharge services: DS: Data Data Completed and Pending Labs on day of discharge: Labs from last 24 hours 01/22/23 01/22/23 01/22/23 20:56 17:01 11:40 WBC RBC Hgb Hct MCV MCH MCHC RDW Plt Count MPV Immature Gran % (Auto) Neut % (Auto) Lymph % (Auto) [place] % (Auto) Eos % (Auto) Baso % (Auto) Lymph # (Auto) [place] # (Auto) Eos # (Auto) Baso # (Auto) Abs Immat Gran (auto) Absolute Neuts (auto) Absolute Nucleated RBC Nucleated RBC % POC Capillary Glucose 72 56 L* RPR Blood Type O Positive Antibody Screen Negative 01/22/23 01/22/23 01/22/23 11:40 11:40 11:39 WBC 10.1 H RBC 3.91 L Hgb 10.1 L Hct 31.8 L MCV 81.3 MCH 25.8 L MCHC 31.8 L RDW 14.6 H Plt Count 187 MPV 11.7 H Immature Gran % (Auto) 0.4 Neut % (Auto) 69.4 Lymph % (Auto) 23.7 [place] % (Auto) 5.7 Eos % (Auto) 0.6 Baso % (Auto) 0.2 Lymph # (Auto) 2.40 [place] # (Auto) 0.6 Eos # (Auto) 0.1 Baso # (Auto) 0.0 Abs Immat Gran (auto) 0.04 H Absolute Neuts (auto) 7.0 H Absolute Nucleated RBC 0.0 Nucleated RBC % 0.0 POC Capillary Glucose 79 RPR Pending Blood Type Antibody Screen Discharge Plan Discharge Attending physician on discharge: Mau Roa Discharging Clinician: Mau Roa Patient Disposition: Home, Self-Care Activity: pelvic rest Diet: regular Discharge Instructions: Education: Mom and Baby Guide Given to: Mother Follow-Up: Call your delivering provider's office for an appointment to be seen in: 6 Weeks Mom and baby should come to the [facility] for the follow-up appointment. Appointment Date/Time: January 25, 2023 at 1:30 pm What to expect at your follow-up visit: Call [phone] if you are unable to keep your appointment time. BREAST CARE: * Wear a snug supportive bra. * For engorgement discomfort: Breast Feeding: * Apply warm moist washcloths * Express milk as needed to relieve engorgement * Wear loose clothing * For sore nipples: * Identify correct latch-on * Apply warm moist washcloths before and after nursing * Air dry nipples after nursing * May apply [place] cream to nipples PERINEAL CARE: * Until bleeding stops, use your yoli bottle after urinating * Change your pad frequently throughout the day * You may take sitz baths several times a day (fill your bathtub with warm water and soak for 20 minutes.) Do NOT bathe in the water * No tub baths until seen by your physician - You may shower ACTIVITY: * Rest as much as possible. * Do not exercise or lift anything heavier than your baby (such as laundry or other children.) * Avoid stairs or driving as much as possible. * Do not put anything into the vagina. No douching, tampons, or sexual activity until seen by physician. NOTIFY PHYSICIAN IF YOU HAVE ANY QUESTIONS OR IF ANY OF THE FOLLOWING SYMPTOMS OCCUR: * If your perineum becomes red, swollen, or more painful than what you have experienced in the hospital. * If your vaginal bleeding becomes foul smell
[2023-01-22] MEDS: OXYTOCIN 30 UNITS/NS 500 ML 30 UNITS/500 ML BAG 125 UNITS IV CONT (21:57)
[2023-01-22] MEDS: ACETAMINOPHEN 325 MG TABLET 650 MG PO (22:05)
[2023-01-22] MEDS: LORATADINE 10 MG TABLET PO (22:20)
--- NOTE | 2023-01-23 00:50 | PC.NURSE ---
Patient transferred to post room #285 per wheelchair from labor and delivery. Support person present. Oriented to unit, room, information board, rooming in, admission packet and security measures. Patient verbalizes understanding.
[2023-01-23 03:35] VITALS: BP 111/57; PULSE 69; RESP 16; TEMP 36.6
[2023-01-23 05:58] LABS: Hematocrit 33.3 % (37.0-47.0); Hemoglobin 10.2 g/dL (12.0-15.0)
[2023-01-23 07:55] VITALS: BP 103/67; PULSE 70; RESP 16; TEMP 36.4; O2SAT 100
--- NOTE | 2023-01-23 08:47 | P.PNOB_ITS ---
OB - PN: Subj Subjective Date/time seen: 01/23/23 08:47 Narrative: Pain OK. Would like circumcision for son. OB - PN: Obj Data Labs 01/23/23 04:40 Labs: Laboratory Results - last 24 hr 01/22/23 01/22/23 01/22/23 11:39 11:40 11:40 WBC 10.1 H RBC 3.91 L Hgb 10.1 L Hct 31.8 L MCV 81.3 MCH 25.8 L MCHC 31.8 L RDW 14.6 H Plt Count 187 MPV 11.7 H Immature Gran % (Auto) 0.4 Neut % (Auto) 69.4 Lymph % (Auto) 23.7 [place] % (Auto) 5.7 Eos % (Auto) 0.6 Baso % (Auto) 0.2 Lymph # (Auto) 2.40 [place] # (Auto) 0.6 Eos # (Auto) 0.1 Baso # (Auto) 0.0 Abs Immat Gran (auto) 0.04 H Absolute Neuts (auto) 7.0 H Absolute Nucleated RBC 0.0 Nucleated RBC % 0.0 POC Capillary Glucose 79 Blood Type O Positive Antibody Screen Negative 01/22/23 01/22/23 01/23/23 17:01 20:56 04:40 WBC RBC Hgb 10.2 L Hct 33.3 L MCV MCH MCHC RDW Plt Count MPV Immature Gran % (Auto) Neut % (Auto) Lymph % (Auto) [place] % (Auto) Eos % (Auto) Baso % (Auto) Lymph # (Auto) [place] # (Auto) Eos # (Auto) Baso # (Auto) Abs Immat Gran (auto) Absolute Neuts (auto) Absolute Nucleated RBC Nucleated RBC % POC Capillary Glucose 56 L* 72 Blood Type Antibody Screen OB - PN A/P Plan Comments: A: PPD#1, doing well. P: Reviewed circ. Routine care. Exam Psych: Other: AVSS ABD soft, nontender, fundus firm EXT nontender
[2023-01-23] MEDS: FLUoxetine HCL 20 MG CAPSULE 60 MG PO (08:50)
[2023-01-23] MEDS: ACETAMINOPHEN 325 MG TABLET 650 MG PO ×2 (08:50→15:12)
[2023-01-23] MEDS: DOCUSATE SODIUM 100 MG CAPSULE PO ×2 (08:52→17:47)
[2023-01-23] MEDS: IBUPROFEN 600 MG TABLET PO ×2 (08:52→15:11)
[2023-01-23] MEDS: MULTIVIT/MIN/PREN/FOL AC/IRON TABLET 1 TAB PO (08:52)
[2023-01-23 09:00] VITALS: PULSE 70; RESP 16; O2SAT 100
--- NOTE | 2023-01-23 09:00 | PC.NURSE ---
PT introductions made and plan of care discussed per post , pain management, breast feeding, daily care activities. PT and spouse both recipients of such instructions and no barriers to learning identified at this time. PT received such instructions per one to one discussion, mom baby care guide and demonstrations this shift. PT verbalized understanding of such care.
--- NOTE | 2023-01-23 09:25 | WPDANLDPN2 ---
Anes-Prog Note L&D Date/Time: 01/23/23 09:25 Comfortable throughout: labor and delivery Neuraxial method: epidural Epidural/Spinal procedure site: clean & non-tender Neuro status: Neuro function grossly intact. Cardiovascular status: normal Respiratory status: normal Airway patency: baseline Mental status: baseline Post-Op hydration status: normal Vital Signs: Last Vital Signs Temp 97.6 F 01/23/23 07:55 Pulse 70 01/23/23 07:55 Resp 16 01/23/23 07:55 BP 103/67 01/23/23 07:55 Pulse Ox 100 01/23/23 07:55 O2 Del Method Room Air 01/22/23 11:52 Pain score (VAS): 0/10 I/O: Intake & Output 01/22/23 01/23/23 01/23/23 23:59 07:59 15:59 Intake Total 1500 500 Output Total 181 Balance 1319 500 Post-procedural complaints: none Patient feedback: Patient satisfied with anesthetic care.
[2023-01-23 11:42] VITALS: BP 91/51; PULSE 72; RESP 18; TEMP 36.9; O2SAT 98
[2023-01-23 15:09] LABS: Rapid Plasma Reagin Non-Reactive (NonReactive)
[2023-01-23] MEDS: TETANUS,DIPHTHERIA,AC PERTUSSIS ADULT (0.5 ML) BOOSTRIX IM (15:18)
[2023-01-23 16:35] VITALS: BP 90/48; PULSE 67; RESP 18; TEMP 36.4; O2SAT 98
[2023-01-23] MEDS: ONDANSETRON HCL ODT 4 MG TABLET PO (16:37)
[2023-01-23 19:30] VITALS: BP 95/69; PULSE 70; RESP 18; TEMP 36.6
[2023-01-23] MEDS: METOPROLOL SUCCINATE EXT REL 25 MG TABCR PO (22:58)
--- NOTE | 2023-01-24 08:00 | PC.NURSE ---
PT introductions made and plan of care discussed per post , pain management, breast feeding, daily care activities and pending discharge to home. PT and fob both recipients of such instructions and no barriers to learning identified at this time. PT received such instructions per one to one discussion, mom baby care guide and demonstrations this shift. PT verbalized understanding of such care.
--- NOTE | 2023-01-24 08:43 | PM.OBPNVD ---
OB - PN: Subj Subjective Date/time seen: 01/24/23 08:43 Narrative: Pain OK. Would like to go home. OB - PN: Obj Data Labs 01/23/23 04:40 Labs: Laboratory Results - last 24 hr 01/22/23 11:40 RPR Non-reactive OB - PN A/P Plan Comments: A: PPD#2, doing well. P: Home to f/u 6 weeks. Exam Psych: Other: AVSS ABD soft, nontender, fundus firm EXT nontender
[2023-01-24 09:25] VITALS: BP 103/68; PULSE 76; RESP 18; TEMP 36.4; O2SAT 98
[2023-01-24 11:00] VITALS: PULSE 76; RESP 18; O2SAT 98
[2023-01-24] MEDS: BENZOCAINE 20% AER SPR (*SP) 56 GM CAN 1 SPRAY TOPICAL (11:14)
[2023-01-24] MEDS: WITCH HAZEL 40 PADS 1 PAD TOPICAL (11:14)
[2023-01-24] MEDS: FLUoxetine HCL 20 MG CAPSULE 60 MG PO (11:14)
[2023-01-24] MEDS: ACETAMINOPHEN 325 MG TABLET 650 MG PO (11:15)
[2023-01-24] MEDS: MULTIVIT/MIN/PREN/FOL AC/IRON TABLET 1 TAB PO (11:15)
[2023-01-24] MEDS: IBUPROFEN 600 MG TABLET PO (11:16)
[2023-01-24] MEDS: DOCUSATE SODIUM 100 MG CAPSULE PO (11:16)
--- NOTE | 2023-01-24 11:20 | PC.NURSE ---
PT received discharge instructions per protocol and verbalized understanding of such care. Patient viewed the discharge video Mother & Baby Care, The First Two Weeks . Patient was given the opportunity and encouraged to ask questions. Patient verbalized understanding of information shared and has been given the mother/baby guide for home reference.
--- NOTE | 2023-01-24 11:50 | PC.NURSE ---
PT discharged to home ambulatory accompanied by spouse and and taken to waiting car. Follow up appts confirmed
[2023-01-25 12:55] VITALS: BP 100/81; PULSE 95; RESP 20; TEMP 36.8; O2SAT 100
== END 2023-01-24 11:50 | disposition home or self-care (01) | DRG 807 ==
LOC: ANHLDR 11:25 → ANHOB2 01-23 00:53
PROVIDERS: Admitting Provider Obstetrics & Gynecology; PCP Internal Medicine; Visit Provider Obstetrics & Gynecology
DX: O24.429 Gestational diabetes mellitus in childbirth, unspecified control (principal); Z37.0 Single live birth; O99.344 Other mental disorders complicating childbirth; F32.A Depression, unspecified; O69.81X0 Labor and delivery complicated by cord around neck, without compression, not applicable or unspecified; Z3A.39 39 weeks gestation of pregnancy
CPT/HCPCS: 36415; 82948; 85014; 85018; 85025; 86592; 86850; 86900; 86901; 90715; A9270; J2405; J2590; J2795; J3010; J7120

== ENCOUNTER 2023-10-22 19:28 | Emergency (ER) | payer OTHER, SELFPAY ==
[2023-10-22 19:37] VITALS: BP 110/73; PULSE 90; RESP 16; TEMP 36.3; O2SAT 100
--- NOTE | 2023-10-22 19:48 | ED.URI ---
HPI - URI/Sore Throat General Chief Complaint: Upper Respiratory Infection Stated Complaint: Cough Time Seen by Provider: 10/22/23 19:35 Source: patient and RN notes reviewed Mode of arrival: ambulatory Limitations: no limitations History of Present Illness HPI Narrative: Patient presents today complaining of cough for 10 days with mild congestion, shortness of breath with exertion, rib and back pain. Denies rhinorrhea, sore throat. States she had fever beginning of her illness, but this has since resolved several days ago. She has not been taking any medication for symptoms prior to arrival. No history of asthma. She is a nonsmoker. States she was seen today by a new PCP who told her she had some crackles in her lungs and told her to take some Mucinex. Related Data Home Medications Medication Instructions Recorded Confirmed medroxyprogesterone 150 mg/mL See Rx Instructions .Route .COMPLEX 10/22/23 10/22/23 intramuscular syringe metoprolol succinate 25 mg 12.5 mg PO DAILY 10/22/23 10/22/23 tablet,extended release 24 hr paroxetine HCl 20 mg tablet 10 mg PO DAILY 10/22/23 10/22/23 Allergies Allergy/AdvReac Type Severity Reaction Status Date / Time Latex, Natural Rubber AdvReac Mild Rash Verified 10/22/23 19:41 midodrine AdvReac Mild Rash Verified 10/22/23 19:41 Review of Systems Review of Systems: CONSTITUTIONAL: Denies body aches, fever, chills, or sweats. EYES: Denies visual changes, redness, or discharge. ENT: Denies rhinorrhea, sore throat, or otalgia.+ congestion CARDIOVASCULAR: Denies chest pain, palpitations, or edema. RESPIRATORY:+ cough, shortness of breath with exertion GASTROINTESTINAL: Denies abdominal pain, nausea, vomiting, or diarrhea. GENITOURINARY: Denies dysuria or hematuria. SKIN: Denies rash, itching, or wounds. MUSCULOSKELETAL: Denies joint pain, or myalgia.+ back and rib pain NEUROLOGIC: Denies headache, numbness, tingling, or weakness. PSYCH: Denies depression or anxiety. [facility] Past Medical History Medical History Anxiety and depression Frequent headaches GERD (gastroesophageal reflux disease) Gestational diabetes mellitus (GDM) Surgical History Surgical History History of placement of ear tubes History of tonsillectomy Family History Family History Father Hypertension Diabetes mellitus Cerebrovascular accident Grandparent Hypertension Diabetes mellitus Congestive heart failure Sibling Hypothyroid Social History Social History Smoking status: Never smoker Substance use: never Lack of Transportation: No Lack of Food: Never True Current Housing: I Have Housing Concerned About Future Housing: No Difficulty Paying Gas/Electric Bills: No Difficulty Paying for Meds: No Currently Unemployed: No Education: High School Diploma/GED Difficulty w/ Childcare or Family Care: No Spiritual care concerns: No Comments At time of signature, I have reviewed and agree with nursing past medical, surgical, social and family history unless otherwise noted. Please see nursing chart for further information. There is no relevant family history pertinent to the presenting complaint Exam Narrative: GENERAL: Well-appearing, well-nourished, and in no acute distress. HEAD: Normocephalic, atraumatic. EYES: EOMI. No redness or drainage. Conjunctivae normal. ENT: Mucous membranes pink and moist. Nares clear. No rhinorrhea. TMs normal bilaterally. Throat normal. Uvula midline. NECK: Normal AROM. Supple. No lymphadenopathy. CHEST: No respiratory distress. Clear to auscultation. HEART: Regular rate and rhythm. No murmur appreciated. MUSCULOSKELETAL: Soft tissue tenderness along the left mid back. EXTREMITIES: Vivian
== END 2023-10-22 19:55 | disposition home or self-care (01) ==
PROVIDERS: Emergency Provider Nurse Practitioner; PCP Internal Medicine
DX: J40 Bronchitis, not specified as acute or chronic (principal); J01.90 Acute sinusitis, unspecified; K21.9 Gastro-esophageal reflux disease without esophagitis; F41.9 Anxiety disorder, unspecified; F32.A Depression, unspecified
CPT/HCPCS: 99213; G0463

== ENCOUNTER 2023-11-09 16:25 | Emergency (ER) | payer OTHER, SELFPAY ==
--- NOTE | 2023-11-09 16:30 | ED.GENADULT ---
HPI - General Adult General Chief complaint: Upper Respiratory Infection Stated complaint: cough,congestion,rt ear pain Time Seen by Provider: 11/09/23 16:29 Source: patient Mode of arrival: ambulatory Limitations: no limitations History of Present Illness HPI narrative: 23-year-old female patient presents to the [facility] with complaints of coughing congestion for over 4 weeks. Patient states she was seen here on October 22 and was diagnosed with bronchitis and was prescribed doxycycline, steroids, inhaler and Tessalon Perles. Patient states she did not take the Tessalon Perles at all. Patient states she only took the inhaler a couple of times finish the antibiotic but only took 2 days of steroids. Patient states she continues to have symptoms but denies any fevers, body aches or chills. Patient states she is short of breath when coughing and that her chest hurts when she has been coughing. Patient states she has been coughing up phlegm that is anywhere from yellow to brown. Related Data Home Medications Medication Instructions Recorded Confirmed metoprolol succinate 25 mg 12.5 mg PO DAILY 10/22/23 10/22/23 tablet,extended release 24 hr paroxetine HCl 20 mg tablet 10 mg PO DAILY 10/22/23 10/22/23 alprazolam 0.25 mg tablet mg 11/09/23 Allergies Allergy/AdvReac Type Severity Reaction Status Date / Time Latex, Natural Rubber AdvReac Mild Rash Verified 11/09/23 16:37 midodrine AdvReac Mild Rash Verified 11/09/23 16:37 Review of Systems Review of Systems: CONSTITUTIONAL: Denies fever, chills, or sweats. EYES: Denies visual changes, redness, or discharge. ENT: positive rhinorrhea, congestion, deniessore throat, or otalgia. CARDIOVASCULAR: Denies chest pain, palpitations, or edema. RESPIRATORY: Positive productive cough with dyspnea. GASTROINTESTINAL: Denies abdominal pain, nausea, vomiting, or diarrhea. GENITOURINARY: Denies dysuria or hematuria. SKIN: Denies rash or itching. MUSCULOSKELETAL: Denies back pain, joint pain, or myalgia. NEUROLOGIC: Denies headache, numbness, or weakness. PSYCHIATRIC: Denies anxiety or depression. [facility] Past Medical History Medical History Anxiety and depression Frequent headaches GERD (gastroesophageal reflux disease) Gestational diabetes mellitus (GDM) Surgical History Surgical History History of placement of ear tubes History of tonsillectomy Family History Family History Father Hypertension Diabetes mellitus Cerebrovascular accident Grandparent Hypertension Diabetes mellitus Congestive heart failure Sibling Hypothyroid Social History Social History Smoking status: Never smoker Substance use: never Lack of Transportation: No Lack of Food: Never True Current Housing: I Have Housing Concerned About Future Housing: No Difficulty Paying Gas/Electric Bills: No Difficulty Paying for Meds: No Currently Unemployed: No Education: High School Diploma/GED Difficulty w/ Childcare or Family Care: No Spiritual care concerns: No Comments At the time of my signature I agree with nursing past medical history, surgical, social, and family history. There is no relevant family history pertinent to the presenting complaint. Exam Narrative: GENERAL: Well-appearing, well-nourished, and in no acute distress. HEAD: Normocephalic, atraumatic. EYES: PERRLA and EOMI. ENT: Nares with erythema edema noted bilateral, no rhinorrhea or epistaxis. Mucous membranes moist. posterior pharynx with no erythema, tonsillar enlargement, exudates or lesions present. NECK: Supple. No lymphadenopathy CHEST: Clear to auscultation. No respiratory distress. Patient able to talk clear complete sentences but does have cough noted during exam. HEART
[2023-11-09 16:37] VITALS: BP 102/73; PULSE 87; RESP 18; TEMP 36.3; O2SAT 99
== END 2023-11-09 17:06 | disposition home or self-care (01) ==
PROVIDERS: Emergency Provider Nurse Practitioner Family; PCP Internal Medicine
DX: J40 Bronchitis, not specified as acute or chronic (principal); Z79.899 Other long term (current) drug therapy
CPT/HCPCS: 99213; G0463

== ENCOUNTER 2024-04-15 12:42 | Emergency (ER) | payer OTHER, SELFPAY ==
[2024-04-15 12:53] VITALS: BP 113/74; PULSE 92; RESP 18; TEMP 36.8; O2SAT 99
--- NOTE | 2024-04-15 12:53 | ED.SKABFB ---
HPI - Skin/Abscess/Foreign Bdy General Chief complaint: Skin/Abscess/Foreign Body Stated complaint: potential foreign body Time Seen by Provider: 04/15/24 12:53 Source: patient, RN notes reviewed and old records reviewed Mode of arrival: ambulatory Limitations: no limitations History of Present Illness HPI narrative: 23-year-old female to [facility] for complaint of redness to left hand. patient states that she was giving a temper vaccination to a kitten that she is fostering at home prior to arrival. Patient states that during vaccination the kidney became irritated and scratched her hand. Patient reports drawing back the syringe with her right hand. Patient states that she is almost certain that she did not poke herself with a vaccination needle however patient is concerned that she may have done so. Patient reports calling multiple resources prior to arrival including [facility] and her primary care provider. Patient had been advised to keep area clean and dry and to watch for signs of infection. Patient states that she has a history of anxiety and that she just wanted to be certain that she wasn't going to if she accidentally scraped her hand or poked herself with the needle. Patient very anxious and talkative with pressured speech in exam room. Patient denies pain, numbness, tingling, bleeding prior to arrival, pertinent medical history, fever, dizziness, headache, localized joint pain. Patient smiling and laughing. Patient in no acute distress. Related Data Home Medications Medication Instructions Recorded Confirmed metoprolol succinate 25 mg 12.5 mg PO DAILY 10/22/23 10/22/23 tablet,extended release 24 hr amoxicillin 875 mg-potassium tablet 04/15/24 clavulanate 125 mg tablet fluoxetine 20 mg tablet mg 04/15/24 04/15/24 Allergies Allergy/AdvReac Type Severity Reaction Status Date / Time Latex, Natural Rubber Allergy Mild Rash Verified 04/15/24 12:55 midodrine Allergy Mild Rash Verified 04/15/24 12:55 Review of Systems Review of Systems: All systems reviewed & are unremarkable except as noted in HPI and below Constitutional: Constitutional: Reports no additional constitutional complaints Eyes: Eyes: Reports no additional eye complaints ENT: Reports system reviewed and no additional complaints, except as documented Cardiovascular: Cardiovascular: Reports no additional cardiovascular complaints, Denies chest pain and Denies dyspnea Respiratory: Respiratory: Reports no additional respiratory complaints, Denies cough and Denies dyspnea Musculoskeletal: Musculoskeletal: Reports no additional musculoskeletal complaints Integumentary/Breasts: Skin/Breast: Reports erythema (left dorsal hand; webbing between thumb and index finger) Neurologic: Reports system reviewed and no additional complaints, except as documented Psychiatric: Psychiatric: Reports no additional psychiatric complaints PMFSH Past Medical History Medical History Anxiety and depression Frequent headaches GERD (gastroesophageal reflux disease) Gestational diabetes mellitus (GDM) Surgical History Surgical History History of placement of ear tubes History of tonsillectomy Family History Family History Father Hypertension Diabetes mellitus Cerebrovascular accident Grandparent Hypertension Diabetes mellitus Congestive heart failure Sibling Hypothyroid Social History Social History Smoking status: Never smoker Substance use: never Lack of Transportation: No Lack of Food: Never True Current Housing: I Have Housing Concerned About Future Housing: No Difficulty Paying Gas/Electric Bills: No Difficulty Paying for Meds: No Currently Unemployed: N
[2024-04-15 12:56] VITALS: BP 113/74; PULSE 92; RESP 18; TEMP 36.8; O2SAT 99
== END 2024-04-15 13:11 | disposition home or self-care (01) ==
PROVIDERS: Emergency Provider Nurse Practitioner Family; PCP Internal Medicine
DX: L53.9 Erythematous condition, unspecified (principal); F41.9 Anxiety disorder, unspecified; F32.A Depression, unspecified; K21.9 Gastro-esophageal reflux disease without esophagitis
CPT/HCPCS: 99211; 99213; G0463

== ENCOUNTER 2024-08-02 14:45 | Emergency (ER) | payer OTHER, SELFPAY ==
[2024-08-02 14:58] VITALS: BP 102/71; PULSE 107; RESP 16; TEMP 36.3; O2SAT 98
[2024-08-02 15:03] VITALS: BP 102/71; PULSE 107; RESP 16; TEMP 36.3; O2SAT 98
[2024-08-02 15:25] LABS: EDSTREPNEGPOS1 Negative (Negative)
--- NOTE | 2024-08-02 15:43 | ED.URI ---
HPI - URI/Sore Throat General Chief Complaint: Upper Respiratory Infection Stated Complaint: sore throat Time Seen by Provider: 08/02/24 15:44 Source: patient, RN notes reviewed and old records reviewed Mode of arrival: ambulatory Limitations: no limitations History of Present Illness HPI Narrative: 23-year-old female presents to the [facility] with complaints of a sore throat. Sx since friday Multiple family members positive for strep Related Data Home Medications Medication Instructions Recorded Confirmed fluoxetine 20 mg tablet 20 mg PO DAILY 04/15/24 08/02/24 Allergies Allergy/AdvReac Type Severity Reaction Status Date / Time Latex, Natural Rubber AdvReac Mild Rash Verified 08/02/24 15:02 midodrine AdvReac Mild Rash Verified 08/02/24 15:02 Review of Systems Review of Systems: All systems reviewed & are unremarkable except as noted in HPI and below Constitutional: Constitutional: Reports no additional constitutional complaints Eyes: Eyes: Reports no additional eye complaints ENT: Reports as per HPI and Reports sore throat Cardiovascular: Cardiovascular: Reports no additional cardiovascular complaints, Denies chest pain and Denies dyspnea Respiratory: Respiratory: Reports no additional respiratory complaints, Denies chest congestion, Denies cough and Denies dyspnea Gastrointestinal: Gastrointestinal: Reports no additional gastrointestinal complaints, Denies abdominal pain, Denies nausea and Denies vomiting Musculoskeletal: Musculoskeletal: Reports no additional musculoskeletal complaints Integumentary/Breasts: Skin/Breast: Reports system reviewed and no additional complaints, except as docu Neurologic: Reports system reviewed and no additional complaints, except as documented Psychiatric: Psychiatric: Reports no additional psychiatric complaints Allergic/Immunologic: Allergic/Immunologic: Reports no additional allergic/immunologic complaints [facility] Past Medical History Medical History Anxiety and depression Frequent headaches GERD (gastroesophageal reflux disease) Gestational diabetes mellitus (GDM) Surgical History Surgical History History of placement of ear tubes History of tonsillectomy Family History Family History Father Hypertension Diabetes mellitus Cerebrovascular accident Grandparent Hypertension Diabetes mellitus Congestive heart failure Sibling Hypothyroid Social History Social History Smoking status: Never smoker Substance use: never Lack of Transportation: No Lack of Food: Never True Current Housing: I Have Housing Concerned About Future Housing: No Difficulty Paying Gas/Electric Bills: No Difficulty Paying for Meds: No Currently Unemployed: No Education: High School Diploma/GED Difficulty w/ Childcare or Family Care: No Spiritual care concerns: No Comments At the time of my signature, I reviewed and agree with the nursing past medical, surgical, social, and family history. There is no relevant family history pertinent to the patient complaint. Exam Const: General: cooperative, healthy appearing, comfortable, no acute distress, well developed, alert and well nourished Nutritional Appearance: well nourished Orientation/consciousness: patient oriented x3 Limitations: no limitations HENMT: Head: normal to inspection Ears: hearing grossly normal bilaterally, external ears normal, TM's normal bilaterally, EAC's normal, mastoids normal and no periauricular adenopathy Face/Nose/Sinus: Normal external nose present, Normal nares present, Normal nasal mucous membranes and turbinates present, normal facial exam and face symmetric Face and sinus: normal facial exam and face symmetric Mouth: Yes Normal oral and palatal mucosa presen
== END 2024-08-02 15:57 | disposition home or self-care (01) ==
PROVIDERS: Emergency Provider Nurse Practitioner; PCP Internal Medicine
DX: J02.9 Acute pharyngitis, unspecified (principal); R09.82 Postnasal drip; K21.9 Gastro-esophageal reflux disease without esophagitis; F41.9 Anxiety disorder, unspecified; F32.A Depression, unspecified
CPT/HCPCS: 87081; 87880; 99213; G0463

== ENCOUNTER 2024-12-02 05:44 | Inpatient (IN) | payer OTHER, SELFPAY ==
[2024-12-02] VITALS (14 sets, daily range): BP systolic 89–115; BP diastolic 58–77; PULSE 68–100; RESP 16–20; TEMP 36.4–37.3; O2SAT 98–100; BMI 27.1
--- NOTE | ~2024-12-02 | US_ITS ---
EXAMINATION: US OB <=14 wk fetus w TV DATE: 12/02/2024 07:52 INDICATION: Lower back pain and left lower quadrant pain TECHNIQUE: Real-time transabdominal and transvaginal obstetric ultrasound. FINDINGS: No prior studies for comparison. The uterus measures 12.4 x 5.5 x 8.6 cm. There is an intrauterine gestational sac, with pole id entified. The crown rump length measures 1.71 cm, which correlates with a estimated gestational age of 8 weeks 1 day. heart tones are identified measuring 155 BPM. The ovaries are within normal limits with normal Doppler signal. IMPRESSION: 1. SL IUP with an EGA of 8 weeks, 1 days (EDC by current ultrasound of 07/13/2025). Reviewed, dictated and finalized at location A. TRAINER IMPRESSION: 1. SL IUP with an EGA of 8 weeks, 1 days (EDC by current ultrasound of ).
--- NOTE | ~2024-12-02 | US_ITS ---
US renal BI 12/02/2024 10:09 Procedure: Realtime transabdominal ultrasound of the kidneys and bladder. Indication: Possible left renal stone. Comparison: CT dated 03/13/2022 Findings: There is mild left hydronephrosis. No obstructing stone is identified. Consider correlation with CT. There are echogenic foci within the right kidney centrally. Cannot exclude small renal ston es. No right hydronephrosis. The right kidney measures 11.1 cm and left kidney measures 12.1 cm. Osman dder within normal limits. Impression: 1: Mild left hydronephrosis. Cannot exclude obstructing ureteral stone. Consider correlation with CT. 2: Echogenic foci centrally in the right kidney. Cannot exclude nonobstructing nephrolithiasis. Reviewed, dictated and finalized at location A. RY DRILLER HELPER Impression: 1: Mild left hydronephrosis. Cannot exclude obstructing ureteral stone. Conside r correlation with CT. 2: Echogenic foci centrally in the right kidney. Cannot exclude nonobstructing nephrolithiasis.
--- OUTSIDE RECORDS SUMMARY | 2024-12-02 05:46 | XMS_ITS | Clinical Summary ---
Author Organization [facility] Address [facility] [facility] [place] [address] [place] [address] Care Team Providers Care Child Welfare Caseworker Name Role Phone Unavailable Primary Care Provider Unavailabl e Allergies Active Allergy Reactions Criticality Noted Date Comments Midodrine Headache Low 11/09/2020 nausea Medications QUEtiapine (SEROQUEL) 25 MG tabletIndication s:ONEIL (generalized anxiety disorder),Mild episode of recurrent major depressive disorder (CMS/HCC) Take 0.5 tablets (12.5 mg total) by mouth nightly at bedtime. 60 tablet 1 3 Active Additional Information Patient not taking.Reported on 11/26/2023 metoprolol succinate ER (TOPROL-XL) 25 MG 24 hr tabletIndication s:POTS (postural orthostatic tachycardia syndrome) Take 0.5 tablets (12.5 mg total) by mouth daily. 90 tablet 1 3 Active ALPRAZolam (XANAX) 0.5 MG tabletIndication s:ONEIL (generalized anxiety disorder) Take 1 tablet (0.5 mg total) by mouth daily as needed for Sleep. 10 tablet 3 Active Additional Information Patient taking differently: 0.25 mgOral DAILY PRN, Sleep, Reported on 11/26/2023 buPROPion (WELLBUTRIN) 75 MG tabletIndication s:Mild episode of recurrent major depressive disorder (CMS/HCC) Take 1 tablet (75 mg total) by mouth daily. 90 tablet 4 Active Additional Information Patient not taking.Reported on 11/26/2023 FLUoxetine (PROZAC) 20 MG capsuleIndicatio ns:Mild episode of recurrent major depressive disorder (CMS/HCC),Genera lized anxiety disorder TAKE 1 CAPSULE(20 MG) BY MOUTH DAILY 30 capsule 4 Active Active Problems Problem Noted Date Diagnosed Date Tachycardia 10/16/2021 Overview (10/22/2023): Last Assessment & Plan: Stable on metoprolol. POTS (postural orthostatic tachycardia syndrome) 05/26/2020 Overview (10/22/2023): Last Assessment & Plan: Well controlled on metoprolol for palpitations. Pt didn't tolerate midodrine for low BP. Generalized anxiety disorder 02/23/2019 Overview (10/22/2023): Last Assessment & Plan: Decrease paroxetine 10 mg once a day for week then stop. Effexor XR 37.5 mg once a day for a week then increase to 75 mg Irritable bowel syndrome with constipation 02/23 Overview (10/22/2023): Last Assessment & Plan: Stable, doesn't need medical management. Moderate episode of recurren t major depressive disorder (CMS/HCC HHS/HCC) 09/21/2018 Overview (10/22/2023): Last Assessment & Plan: Worsening. Previously was on Seroquel and Paxil and did better. Due to they were changed to bupropion and fluoxetine. Patient is having side effects, unable to tolerate. Will change back to Seroquel and Paxil. Immunizations Name Administration Dates Next Due Hepatitis B Pediatric 05/09/2000,1999,08/04 Influenza Adult (Generic) 08/25/2020 MMR (MMRII) 04/23/2005,10/29/2000 Tdap (Generic) 01/23/2023,08/25/2014 Varicella (Varivax) 06/29/2014,08/05/2000 Family History Medical History Relation Comments Diabetes Father Hypertension Father Relation Status Comments Father Social History Tobacco Use Types Packs/Day Years Used Date Smoking Tobacco: Never Passive Smoke Exposure: Never Smokeless Tobacco: Never Tobacco Cessation:Counseling Given: Not Answered Comments:Counseled by Dr. Adelr. Alcohol Use Standard Drinks/Week Comments Never 0 (1 standard drink = 0.6 oz pur e alcohol) PHQ-2 Answer Date Recorded Patient Health Questionnaire-2 Score 3 11/26/2023 Comments Unknown Sex and Gender Information Value Date Recorded Sex Assigned at Not on file Legal Sex Female 11:55 AM CDT Gender Identity Not on file Sexual Orientation Not on file Last Filed Vital Signs Vital Sign Reading Time Taken Comments Blood Pressure 109/96 11/26/2023 5:29 PM WATER TAXI OPERATOR Pulse 82 11/26/2023 5:29 PM WATER TAXI OPERATOR Temperature 36.7 ??C (98 ??F) 11/26/2023 5:29 PM WATER TAXI OPERATOR Respiratory Rate 18 11/26/2023 5:29 PM WATER TAXI OPERATOR Oxygen Saturation 100% 11/26/2023 5:29 PM WATER TAXI OPERATOR Inhaled Oxygen Concentration - - Weight 79.4 kg (175 lb) 11/26/2023 5:29 PM WATER TAXI OPERATOR Height 162.6 cm (5' 4 ) 11/26/2023 5:29 PM WATER TAXI OPERATOR Body Mass Index 30.04 11/26/2023 5:29 PM WATER TAXI OPERATOR Plan of Treatment Health Maintenance Due Date Last Done Comments Cervical Cancer Screening Pa p Smear (Age 21 to 29) Every 3 Years 1999 Cervical Cancer Screening 1999 Hepatitis B Vaccines (3 of 3 - 3-dose series) 07/04/2000 05/09/2000, 1999, 1999 HPV Vaccines (1 - 3-dose series) 2014 Hepatitis C 2017 COVID-19 Vaccine (2023-2 5 season) 2024 07/09/2023 Influenza Adult (#1) 2024 08/25/2020 Annual Physical 10/22/2024 10/22/2023 PHQ-2 (Physician [place]) 11/03/2024 11/26/2023 PHQ-2 (Physician [place]) 11/26/2024 11/26/2023 DTaP, Tdap and Td Vaccines ( 3 - Td or Tdap) 01/23/2033 01/23/2023, 08/25/2014 Meningococcal B Vaccine Aged Out No l onger eligible based on patient's age to complete this topic Meningococcal Vaccine Aged Out No florin rosalva eligible based on patient's age to complete this topic Pneumococcal Vaccine: Pediatrics (0 to 5 Years) and At-Risk Patients (6 to 64 Years) Aged Out No longer eligible b ased on patient's age to complete this topic RSV Immunizations Under 20 Months Aged Out No longer eligible b ased on patient's age to complete this topic Insurance
--- OUTSIDE RECORDS SUMMARY | 2024-12-02 05:46 | XMS_ITS | Encounter Summary ---
Author Organization [facility] Care Team Providers Care Developer Evangelist Name Role Phone Edinson Hicks MD Primary Care Provider + Edinson Hicks MD Primary Care Provider + Encounter Details Date Type Department Care Team (Latest Contact Info) Description 11/09/2018 Orders Only [facility] CLINCON[facility] ProviderGladis MD [address] [place] [id number] Social History Tobacco Use Types Packs/Day Years Used Date Smoking Tobacco: Never Comments Unknown Sex and Gender Information Value Date Recorded Sex Assigned at Not on file Legal Sex Female 9:36 PM BRONZE CHASER Gender Identity Female 09/04/2021 9:58 AM CDT Sexual Orientation Straight 09/04/2021 9: 58 AM CDT documented as of this encounter Plan of Treatment Not on file documented as of this encounter Procedures Procedure Name Priority Date/Time Associated Diagnosis Comments COLONOSCOPY - SCAN 11/09/2018 12 :00 AM BRONZE CHASER documented in this encounter Results * COLONOSCOPY - SCAN (11/09/2018 12:00 AM BRONZE CHASER) Narrative 11/09/2018 12:00 AM BRONZE CHASER Ordered by an unspecified provider. Historical Provider Final Res ult documented in this encounter Visit Diagnoses Not on filedocumented in this encounter Additional Health Concerns Infection Onset Date Last Indicated Resolved Time COVID: Suspected 09/04/2021 09/04/2021 09/18/2021 3:05 AM BRONZE CHASER documented as of this encounter Care Teams Developer Evangelist Relationship Specialty Start Date End Date Edinson Hicks MD [address] [place] [address] PCP - General Internal Medicine 02/15/19 10/22/23 Edinson Hicks MD [address] [place] [address] PCP - General Internal Medicine 04/02/24 documented as of this encounter
--- OUTSIDE RECORDS SUMMARY | 2024-12-02 05:46 | XMS_ITS | Encounter Summary ---
Author Organization [facility] Address [facility] [facility]. [place], [place] [address] [place] [id number] Care Team Providers Care Filling Station Laborer Name Role Phone Unavailable Primary Care Provider Unavailabl e Encounter Details Date Type Department Care Team (Latest Contact Info) Description 12/01/2023 MyChart Message Enc [facility] - [place] [address] [address] [address] [place] [address] Adeladie Adler MD [address] [facility] [address] [place] [address] Medication Request Social History Tobacco Use Types Packs/Day Years Used Date Smoking Tobacco: Never Passive Smoke Exposure: Never Smokeless Tobacco: Never Comments:Counseled by Dr. Valerie grewal. Alcohol Use Standard Drinks/Week Comments Never 0 (1 standard drink = 0.6 oz pur e alcohol) PHQ-2 Answer Date Recorded Patient Health Questionnaire-2 Score 3 11/26/2023 Comments Unknown Sex and Gender Information Value Date Recorded Sex Assigned at Not on file Legal Sex Female 11:55 AM CDT Gender Identity Not on file Sexual Orientation Not on file documented as of this encounter Plan of Treatment Not on file documented as of this encounter Visit Diagnoses Not on filedocumented in this encounter Additional Health Concerns Assessment Noted Time PHQ-9 Depression Total Score: 10 10/22/ 023 1:49 PM CUSTOMER SERVICE ATTENDANT documented as of this encounter
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
--- OUTSIDE RECORDS SUMMARY | 2024-12-02 05:46 | XMS_ITS | Referral Summary ---
Author Organization [facility] [place] [address] [facility] Address [address] [facility] [place] [address] Care Team Providers Care Card Reader Name Role Phone Edinson Hicks MD Primary [...] CDT): Doing well. One year . Seeing room service food service attendant for Pap. CMP was normal 6 months [...] management. Assessment & Plan (11/09/2020 10:15 AM RADIO COMMUNICATIONS SUPERINTENDENT): Highly suspicious for gluten intolerance. I advised [...] that. Assessment & Plan (10/16/2021 9:49 AM RADIO COMMUNICATIONS SUPERINTENDENT): Having some breakthrough with Paxil. Will start Buspirone 7.5 mg twice a day. Assessment & Plan (11/27/2020 3:11 PM RADIO COMMUNICATIONS SUPERINTENDENT): Start on Paxil 10 mg two weeks ago. Due to worsening depression I am increasing it to 20 mg a day. Reassess in 4 weeks. Assessment & Plan (11/09/2020 10:23 AM RADIO COMMUNICATIONS SUPERINTENDENT): Couldn't tolerate zoloft, will change to paxil Assessment & Plan (09/29/2019 7:47 AM RADIO COMMUNICATIONS SUPERINTENDENT): Uncontrolled. Will increase sertraline to 150 mg a day Assessment & Plan (05/14/2019 10:43 AM CDT): Not improving, but stable. Cont current treatment. Letter for automobile service station attendant dog approved. Assessment & Plan (02/23/2019 10:22 [...] that. Assessment & Plan (10/12/2021 6:56 AM RADIO COMMUNICATIONS SUPERINTENDENT): Stable on Paxil Assessment & Plan (11/27/2020 3:21 PM RADIO COMMUNICATIONS SUPERINTENDENT): Worsening. Scored 20 on PHQ-9. I suggested [...] 10/16/2021 Assessment & Plan (10/16/2021 9:38 AM RADIO COMMUNICATIONS SUPERINTENDENT): Highly recommended that she get the COVID-19 vaccine. Tachycardia 10/16/2021 04/06/2024 Assessment & Plan (02/27/2023 11:54 AM CDT): Stable on metoprolol. Assessment & Plan (10/16/2021 10:16 AM RADIO COMMUNICATIONS SUPERINTENDENT): EKG shows normal sinus rhythm. Normal EKG. [...] 02/14/2021 Assessment & Plan (11/27/2020 3:13 PM RADIO COMMUNICATIONS SUPERINTENDENT): Mild, new onset 7 days ago. Due [...] 11/09/2020 Assessment & Plan (09/29/2019 7:47 AM RADIO COMMUNICATIONS SUPERINTENDENT): Cont albuterol inhaler q 4-6 hours as needed. Will add antibiotic. Neck pain 09/29/2019 02/27/2023 Assessment & Plan (02/27/2023 11:55 AM CDT): resolved Assessment & Plan (09/29/2019 7:50 AM RADIO COMMUNICATIONS SUPERINTENDENT): Naproxen 220 mg 2 tablets 2 times [...] decision) MMR 04/23/2005,10/29/2000 Tdap 01/23/2023,08/25/2014 Varicella 06/29/2014,08/05/2000 Social History Tobacco Use Types Packs/Day Years [...] on file Legal Sex Female 9:36 PM RADIO COMMUNICATIONS SUPERINTENDENT Gender Identity Female 09/04/2021 9:58 AM CDT Sexual Orientation Straight 09/04/2021 9: 58 AM CDT Last Filed Vital Signs Vital Sign Reading [...] 04/06/2024 11:10 AM CDT Plan of Treatment Not on file Insurance [place] [place] [address] OPEN ACCESS [employer] OPEN ACCESS Care Teams Card Reader Relationship Specialty Start Date End Date Edinson Hicks MD [address] [place] [address] PCP - General Internal Medicine 04/02/24
--- OUTSIDE RECORDS SUMMARY | 2024-12-02 05:46 | XMS_ITS | Encounter Summary ---
Author Organization [facility] Address [address] [place] [address]. [place], [place] [id number] [place] [id number] Care Team Providers Care Tooling Engineer Name Role Phone Unavailable Primary Care Provider Unavailabl e Encounter Details Date Type Department Care Team (Late st Contact Info) Description 11/06/2023 YoBucko Message Enc [facility] Multispecialty Care - [address] [place] [address] Mychart, [facility] Provider Medication Social History Tobacco Use Types Packs/Day Years Used Date Smoking Tobacco: Never Passive Smoke Exposure: Never Smokeless Tobacco: Never Comments:Counseled by Dr. Valerie grewal. Alcohol Use Standard Drinks/Week Comments Never 0 (1 standard drink = 0.6 oz pur e alcohol) PHQ-2 Answer Date Recorded Patient Health Questionnaire-2 Score 2 10/22/2023 Comments Unknown Sex and Gender Information Value [...] Noted Time PHQ-9 Depression Total Score: 10 023 1:49 PM TAILOR WOMEN'S GARMENT ALTERATION documented as of this encounter
--- OUTSIDE RECORDS SUMMARY | 2024-12-02 05:46 | XMS_ITS | Clinical Summary ---
Author Organization [facility] Address [address] [place] [address] Care Team Providers Care Garage Construction Equipment Mechanic Name Role Phone Edinson Hicks MD Primary Care Provider + Allergies No known active allergies Medications pantoprazole (PROTONIX) 40 MG Pack 40 mg by Per NG tube route daily. Active sertraline (ZOLOFT) 100 MG Tablet Take 100 mg by mouth daily. Active Estradiol Cypionate (DEPO-ESTRADIO L IM) by Intramuscular route. Active HYDROcodone-Ac etaminophen 7.5-325 MG/15ML Solution Take 15 mL by mouth. 0 Active ondansetron (ZOFRAN-ODT) 4 MG TABLET DISPERSIBLEInd ications:Nause a Take 1 Tab by mouth every 8 hours as needed for Nausea - 1st line. 10 Tab 0 Active Active Problems No known active problems Social History Tobacco Use Types Packs/Day Years Used Date Smoking Tobacco: Never Smokeless Tobacco: Never Alcohol Use Standard Drinks/Week Comments Not Currently 0 (1 standard drink = 0.6 oz pur e alcohol) Comments No Sex and Gender Information Value Date Recorded Sex Assigned at Not on file Legal Sex Female 2:06 PM CDT Gender Identity Not on file Sexual Orientation Not on file Last Filed Vital Signs Vital Sign Reading Time Taken Comments Blood Pressure 110/76 10/13/2020 2:48 PM HONING JOB SETTER Pulse 93 10/13/2020 2:48 PM HONING JOB SETTER Temperature 36.9 ??C (98.4 ??F) 10/13/2020 2:48 PM CS T Respiratory Rate 18 10/13/2020 2:48 PM HONING JOB SETTER Oxygen Saturation 96% 10/13/2020 2:48 PM HONING JOB SETTER Inhaled Oxygen Concentration - - Weight 53.8 kg (118 lb 11.2 oz) 10/13/2020 2:48 PM HONING JOB SETTER Height 165.1 cm (5' 5 ) 10/13/2020 2:48 PM HONING JOB SETTER Body Mass Index 19.75 10/13/2020 2:48 PM HONING JOB SETTER Plan of Treatment Health Maintenance Due Date Last Done Comments Hepatitis C Virus (HCV) Screening 1999 TdaP Immunization 1999 Human Papillomavirus (HPV) Immunization (1 - 3-dose series) 2014 Hepatitis B Immunization (1 of 3 - 19+ 3-dose series) 2018 Pap Smear 2020 Influenza Immunization (#1) 2024 SARS-COV-2 Immunization ( season) 2024 Respiratory Syncytial Virus (RSV) Immunization (Adult) (1 - 1-dose 75+ series) 2074 Meningococcal Immunization (ACWY) Aged Out No longer eligible based on patient's age to complete this topic Pneumococcal Immunization Combined Aged Out No longer eligible based on patient's age to complete this topic Rotavirus Immunization Aged Out No lo nger eligible based on patient's age to complete this topic Care Teams Garage Construction Equipment Mechanic Relationship Specialty Start Date End Date Edinson Hicks MD [address] [place] [address] PCP - General Internal Medicine 05/17/20
--- NOTE | 2024-12-02 06:02 | ED_ITS ---
HPI - Abdominal Pain General Chief Complaint: Abdominal Pain <Shahbaz Pate MD - Last Filed: 12/02/24 06:58> Stated Complaint: 8weeks , lower back pain, lower abd pain <Shahbaz Pate MD - Last Filed: 12/02/24 06:58> Time Seen by Provider: 12/02/24 05:57 <Shahbaz Pate MD - Last Filed: 12/02/24 06:58> History of Present Illness HPI narrative: This is a 24-year-old otherwise healthy female presenting to the emergency depart with sudden-onset left lower quadrant abdominal pain that woke her up from sleep. She describes a sharp stabbing sensation in her left flank/left lower pelvis. She is approximately 8 weeks by last menstrual period. Has not had a confirmatory ultrasound yet. This will be her 2nd without any complications during previous 1 aside from gestational diabetes. Endorses some burning with urination but denies any vaginal discharge or vaginal bleeding. No epigastric pain, burning throat pain, chest pain, shortness a breath. She is nauseous and did not vomit earlier. Is able tolerate p.o. intake. Denies any fever, chills or injury/trauma. Was previously in her normal state of health until this happened today. <Shahbaz Pate MD - Last Filed: 12/02/24 06:58> Related Data Home Medications: Home Medications ?Medication ?Instructions ?Recorded ?Confirmed ?Last Taken ?Type fluoxetine 20 mg tablet 20 mg PO DAILY 04/15/24 08/02/24 Unknown History <Shahbaz Pate MD - Last Filed: 12/02/24 06:58> Allergies/Adverse Reactions: Allergies Allergy/AdvReac Type Severity Reaction Status Date / Time Latex, Natural Rubber AdvReac Mild Rash Verified 12/02/24 05:45 midodrine AdvReac Mild Rash Verified 12/02/24 05:45 <Shahbaz Pate MD - Last Filed: 12/02/24 06:58> Review of Systems 2 Review of Systems: As reviewed above in HPI <Shahbaz Pate MD - Last Filed: 12/02/24 06:58> [facility] Past Medical History Medical History: Medical History History of kidney stones Gestational diabetes mellitus (GDM) GERD (gastroesophageal reflux disease) Frequent headaches Anxiety and depression <Shahbaz Pate MD - Last Filed: 12/02/24 06:58> Surgical History Surgical History: Surgical History History of placement of ear tubes History of tonsillectomy <Shahbaz Pate MD - Last Filed: 12/02/24 06:58> Family History Family History: Family History Father Hypertension Diabetes mellitus Cerebrovascular accident Grandparent Hypertension Diabetes mellitus Congestive heart failure Sibling Hypothyroid <Shahbaz Pate MD - Last Filed: 12/02/24 06:58> Social History Social History: Social History Smoking status: Never smoker Substance use: never Lack of Transportation: No Lack of Food: Never True Current Housing: I Have Housing Concerned About Future Housing: No Difficulty Paying Gas/Electric Bills: No Difficulty Paying for Meds: No Currently Unemployed: No Education: High School Diploma/GED Difficulty w/ Childcare or Family Care: No Spiritual care concerns: No <Shahbaz Pate MD - Last Filed: 12/02/24 06:58> Exam 2 Narrative: GENERAL: Tearful and uncomfortable in appearance, not in any acute physical distress, answering questions appropriately HEAD: [Normocephalic, atraumatic.] EYES: [PERRLA and EOMI.] ENT: Nares clear, no rhinorrhea or epistaxis. Mucous membranes moist. NECK: Supple. CHEST: [Clear to auscultation. No respiratory distress.] HEART: [Regular rate and rhythm]. No murmur heard. [Normal peripheral pulses.] ABDOMEN: [Soft, nondistended], tenderness to palpation left low flank/left lower quadrant without any signs of peritonitis, [No rigidity or guarding] EXTREMITIES: Normal range of motion. [No edema.] SKIN: Warm, dry, no rash. NEURO: [No focal deficits]. Alert and oriented [x3.] PSYCH: [Normal mood and affect.] <Shahbaz Pate MD - Last Filed: 12/02/24 06:58> Course Vital Signs Vital signs: Vital Signs Temperature 97.6 F 12/02/24 05:45 Pulse Rate 100 12/02/24 05:45 Respiratory Rate 19 12/02/24 05:45 Blood Pressure 114/73 12/02/24 05:45 Pulse Oximetry 100 12/02/24 05:45 Oxygen Delivery Room Air 12/02/24 05:45 Temperature 98.7 F 12/02/24 15:31 Pulse Rate 92 12/02/24 15:29 Respiratory Rate 18 12/02/24 12:54 Blood Pressure 115/70 12/02/24 15:29 Pulse Oximetry 98 12/02/24 10:34 Oxygen Delivery Room Air 12/02/24 05:45 <Shahbaz Pate MD - Last Filed: 12/02/24 06:58> Vital Signs Temperature 97.6 F 12/02/24 05:45 Pulse Rate 100 12/02/24 05:45 Respiratory Rate 19 12/02/24 05:45 Blood Pressure 114/73 12/02/24 05:45 Pulse Oximetry 100 12/02/24 05:45 Oxygen Delivery Room Air 12/02/24 05:45 Temperature 98.7 F 12/02/24 15:31 Pulse Rate 92 12/02/24 15:29 Respiratory Rate 18 12/02/24 12:54 Blood Pressure 115/70 12/02/24 15:29 Pulse Oximetry 98 12/02/24 10:34 Oxygen Delivery Room Air 12/02/24 05:45 <Heath Dickey MD - Last Filed: 12/02/24 19:14> MDM - Abdominal Pain MDM Narrative Medical decision making narrative: This is a 24-year-old otherwise healthy female presenting with left lower quadrant abdominal pain that was sharp and sudden onset that woke her from sleep just prior to arrival. She is approximately weeks by last gestational. . No confirmatory ultrasound yet. She is hemodynamically stable with any blood pressure concerns, tachycardia, fever, hypoxia but she is rather uncomfortable appearing does have a tender left-sided lower quadrant abdomen. No signs of peritonitis. Concern presently is for ectopic given her clinical picture and active , urinary tract infection, potential kidney stone. Low suspicion for diverticulitis or other intra-abdominal process given her age and lacking risk factors. She was given IV pain medications including Dilaudid, Zofran for nausea and fluid bolus. Laboratory studies were obtained including a CBC, CMP, beta hCG quantitative, urinalysis, lipase. Ob ultrasound was ordered and ultrasound team was called in to help rule out ectopic . Patient will be re-evaluated after medications and placed on continuous pulse oximetry and clinical research monitor for monitoring. Laboratory studies showed no leukocytosis or anemia. Normal platelet count. Electrolytes within normal limits, no renal dysfunction, normal glucose, normal hepatic function panel. Remaining labs are pending as well as the OB ultrasound. Patient was signed out to the [facility] physician Dr. Dickey pending results and final disposition based on workup and reassessment. <Shahbaz Pate MD - Last Filed: 12/02/24 06:58> This is a 24-year-old otherwise healthy female presenting with left lower quadrant abdominal pain that was sharp and sudden onset that woke her from sleep just prior to arrival. She is approximately weeks by last gestational. . No confirmatory ultrasound yet. She is hemodynamically stable with any blood pressure concerns, tachycardia, fever, hypoxia but she is rather uncomfortable appearing does have a tender left-sided lower quadrant abdomen. No signs of peritonitis. Concern presently is for ectopic given her clinical picture and active , urinary tract infection, potential kidney stone. Low suspicion for diverticulitis or other intra-abdominal process given her age and lacking risk factors. She was given IV pain medications including Dilaudid, Zofran for nausea and fluid bolus. Laboratory studies were obtained including a CBC, CMP, beta hCG quantitative, urinalysis, lipase. Ob ultrasound was ordered and ultrasound team was called in to help rule out ectopic . Patient will be re-evaluated after medications and placed on continuous pulse oximetry and clinical research monitor for monitoring. Laboratory studies showed no leukocytosis or anemia. Normal platelet count. Electrolytes within normal limits, no renal dysfunction, normal glucose, normal hepatic function panel. Remaining labs are pending as well as the OB ultrasound. Patient was signed out to the [facility] physician Dr. Dickey pending results and final disposition based on workup and reassessment. --- Patient care was signed out by the overnight physician with imaging pending OB ultrasound showed a single live IUP of 8 weeks and 1 day. UA did show had hematuria along with some bacteria and white blood cells, urine culture was ordered and patient was started on Rocephin in the emergency department. Renal ultrasound was ordered due to concern for ureteral calculi. Patient does have history of kidney stones that she did not require lithotripsy to passed stone. Renal ultrasound did show hydronephrosis and could not rule out a kidney stone. Case was discussed with Dr. corrales, and he is accepting the patient for admission for antibiotics, pain control and for evaluation by Urology for a kidney stone. Urology was consulted and they are coming to evaluate the patient in the emergency department. Was resting comfortably after pain medication. Patient was updated on the plan for admission and plan for urology consult. All questions concerns were addressed. <Heath Dickey MD - Last Filed: 12/02/24 19:14> Medical Records Attestation: I reviewed the patient's medical records. <Shahbaz Pate MD - Last Filed: 12/02/24 06:58> Lab Data Attestation: I reviewed the patient's lab results. <Shahbaz Pate MD - Last Filed: 12/02/24 06:58> Result diagrams: 12/02/24 06:11 12/02/24 06:11 <Shahbaz Pate MD - Last Filed: 12/02/24 06:58> Labs: Lab Results 12/02/24 12/02/24 Range/Units 06:11 07:58 WBC 7.9 (4.5-10.0) K/mm3 RBC 4.65 (4.2-5.4) M/mm3 Hgb 13.7 D (12.0-15.0) g/dL Hct 41.4 (37.0-47.0) % MCV 89.0 (80-100) fl MCH 29.5 (26-34) pg MCHC 33.1 (32-36) g/dl RDW 14.0 (11.5-14.5) % Plt Count 219 (150-375) k/mm3 MPV 10.4 (7.4-10.4) fl Immature Gran % (Auto) 0.3 (0-0.5) % Neut % (Auto) 50.2 (45.5-73.1) % Lymph % (Auto) 40.2 (18.3-44.2) % Dane % (Auto) 7.4 (2.6-8.5) % Eos % (Auto) 1.6 (0-4.4) % Baso % (Auto) 0.3 (0.2-1.2) % Lymph # (Auto) 3.17 (0.9-3.2) K/mm3 Dane # (Auto) 0.6 (0.1-0.6) K/mm3 Eos # (Auto) 0.1 (0-0.3) K/mm3 Baso # (Auto) 0.0 (0.0-0.1) K/mm3 Abs Immat Gran (auto) 0.02 (0.00-0.031) K/mm3 Absolute Neuts (auto) 4.0 (1.3-6.7) K/mm3 Absolute Nucleated RBC 0.000 (0.0-0.012) K/mm3 Nucleated RBC % 0.0 (0.0-0.2) % Sodium 134 L (137-145) mmol/L Potassium 3.8 (3.4-5.0) mmol/L Chloride 105 (98-107) mmol/L Carbon Dioxide 19 L (22-30) mmol/L Anion Gap 10 (4-12) mmol/L BUN 8 (7-17) mg/dL Creatinine 0.57 L (0.7-1.0) mg/dL Estim Creat Clear Calc 123 ml/min Estimated GFR > 60 (59 - ) Glucose 94 (65-110) mg/dL Calcium 8.8 (8.4-10.2) mg/dL Total Bilirubin 0.6 (0.2-1.3) mg/dL AST 28 (14-36) U/L ALT 29 (6-35) U/L Alkaline Phosphatase 91 (38-126) U/L Total Protein 7.0 (6.3-8.2) g/dL Albumin 4.0 (3.5-5.1) g/dL Lipase 69 (23-300) U/L Beta HCG, Quant 349410.00 mIU/ML Urine Color Dark yellow (Yellow) Urine Appearance Turbid H (Clear) Urine pH 6.0 (5.0-9.0) Ur Specific [place] 1.028 (1.001-1.035) Urine Protein 1+ H (Negative) mg/dL Urine Glucose (UA) Negative (Negative) mg/dL Urine Ketones 2+ H (Negative) mg/dL Ur Blood (Man) 3+ H (Negative) Urine Nitrate Negative (Negative) Urine Bilirubin Negative (Negative) Urine Urobilinogen 1.0 (<2.0) mg/dL Leukocyte Esterase Rfl 2+ H (Negative) KIMBERLY/UL Urine RBC >100 H (0-2) /hpf Urine WBC 51-100 H (0-3) /hpf Ur Squamous Epith Cells Many H (Few) /hpf Urine Bacteria 4+ H /hpf Urine Casts 3-5 <Shahbaz Pate MD - Last Filed: 12/02/24 06:58> Lab Results 12/02/24 12/02/24 Range/Units 06:11 07:58 WBC 7.9 (4.5-10.0) K/mm3 RBC 4.65 (4.2-5.4) M/mm3 Hgb 13.7 D (12.0-15.0) g/dL Hct 41.4 (37.0-47.0) % MCV 89.0 (80-100) fl MCH 29.5 (26-34) pg MCHC 33.1 (32-36) g/dl RDW 14.0 (11.5-14.5) % Plt Count 219 (150-375) k/mm3 MPV 10.4 (7.4-10.4) fl Immature Gran % (Auto) 0.3 (0-0.5) % Neut % (Auto) 50.2 (45.5-73.1) % Lymph % (Auto) 40.2 (18.3-44.2) % Dane % (Auto) 7.4 (2.6-8.5) % Eos % (Auto) 1.6 (0-4.4) % Baso % (Auto) 0.3 (0.2-1.2) % Lymph # (Auto) 3.17 (0.9-3.2) K/mm3 Dane # (Auto) 0.6 (0.1-0.6) K/mm3 Eos # (Auto) 0.1 (0-0.3) K/mm3 Baso # (Auto) 0.0 (0.0-0.1) K/mm3 Abs Immat Gran (auto) 0.02 (0.00-0.031) K/mm3 Absolute Neuts (auto) 4.0 (1.3-6.7) K/mm3 Absolute Nucleated RBC 0.000 (0.0-0.012) K/mm3 Nucleated RBC % 0.0 (0.0-0.2) % Sodium 134 L (137-145) mmol/L Potassium 3.8 (3.4-5.0) mmol/L Chloride 105 (98-107) mmol/L Carbon Dioxide 19 L (22-30) mmol/L Anion Gap 10 (4-12) mmol/L BUN 8 (7-17) mg/dL Creatinine 0.57 L (0.7-1.0) mg/dL Estim Creat Clear Calc 123 ml/min Estimated GFR > 60 (59 - ) Glucose 94 (65-110) mg/dL Calcium 8.8 (8.4-10.2) mg/dL Total Bilirubin 0.6 (0.2-1.3) mg/dL AST 28 (14-36) U/L ALT 29 (6-35) U/L Alkaline Phosphatase 91 (38-126) U/L Total Protein 7.0 (6.3-8.2) g/dL Albumin 4.0 (3.5-5.1) g/dL Lipase 69 (23-300) U/L Beta HCG, Quant 029798.00 mIU/ML Urine Color Dark yellow (Yellow) Urine Appearance Turbid H (Clear) Urine pH 6.0 (5.0-9.0) Ur Specific [place] 1.028 (1.001-1.035) Urine Protein 1+ H (Negative) mg/dL Urine Glucose (UA) Negative (Negative) mg/dL Urine Ketones 2+ H (Negative) mg/dL Ur Blood (Man) 3+ H (Negative) Urine Nitrate Negative (Negative) Urine Bilirubin Negative (Negative) Urine Urobilinogen 1.0 (<2.0) mg/dL Leukocyte Esterase Rfl 2+ H (Negative) KIMBERLY/UL Urine RBC >100 H (0-2) /hpf Urine WBC 51-100 H (0-3) /hpf Ur Squamous Epith Cells Many H (Few) /hpf Urine Bacteria 4+ H /hpf Urine Casts 3-5 <Heath Dickey MD - Last Filed: 12/02/24 19:14> Imaging Data Radiologist's impression: ITS Impressions Obstetrics Ultrasound 12/02/24 07:58 IMPRESSION: 1. SL IUP with an EGA of 8 weeks, 1 days (EDC by current ultrasound of 07/13/2025). Renal Ultrasound 12/02/24 10:12 Impression: 1: Mild left hydronephrosis. Cannot exclude obstructing ureteral stone. Consider correlation with CT. 2: Echogenic foci centrally in the right kidney. Cannot exclude nonobstructing nephrolithiasis. <Shahbaz Pate MD - Last Filed: 12/02/24 06:58> ITS Impressions Obstetrics Ultrasound 12/02/24 07:58 IMPRESSION: 1. SL IUP with an EGA of 8 weeks, 1 days (EDC by current ultrasound of 07/13/2025). Renal Ultrasound 12/02/24 10:12 Impression: 1: Mild left hydronephrosis. Cannot exclude obstructing ureteral stone. Consider correlation with CT. 2: Echogenic foci centrally in the right kidney. Cannot exclude nonobstructing nephrolithiasis. <Heath Dickey MD - Last Filed: 12/02/24 19:14> Discharge Plan Discharge Clinical Impression: Left sided abdominal pain, , UTI (urinary tract infection) <Shahbaz Pate MD - Last Filed: 12/02/24 06:58> Patient Disposition: Still a Patient <Shahbaz Pate MD - Last Filed: 12/02/24 06:58> Condition: Stable <Shahbaz Pate MD - Last Filed: 12/02/24 06:58> Time of Disposition: 06:57 <Shahbaz Pate MD - Last Filed: 12/02/24 06:58> 06:57 <Heath Dickey MD - Last Filed: 12/02/24 19:14>
[2024-12-02 06:18] LABS: Basophils Percent Auto 0.3 % (0.2-1.2); Eosinophils Absolute Auto 0.1 K/mm3 (0-0.3); Eosinophils Percent Auto 1.6 % (0-4.4); Hematocrit 41.4 % (37.0-47.0); Hemoglobin 13.7 g/dL (12.0-15.0); Immature Granulocyte Absolute 0.02 K/mm3 (0.00-0.031); Immature Granulocyte Percent A 0.3 % (0-0.5); Lymphocytes Absolute Auto 3.17 K/mm3 (0.9-3.2); Lymphocytes Percent Auto 40.2 % (18.3-44.2); Mean Corpuscular HGB Conc 33.1 g/dl (32-36); Mean Corpuscular Hemoglobin 29.5 pg (26-34); Mean Platelet Volume 10.4 fl (7.4-10.4); Monocytes Absolute Auto 0.6 K/mm3 (0.1-0.6); Monocytes Percent Auto 7.4 % (2.6-8.5); Neutrophils Percent Auto 50.2 % (45.5-73.1); Platelet Count Result 219 k/mm3 (150-375); Red Blood Count 4.65 M/mm3 (4.2-5.4); White Blood Count 7.9 K/mm3 (4.5-10.0)
[2024-12-02] MEDS: ONDANSETRON INJ 4 MG/2 ML VIAL IV PUSH ×3 (06:25→17:55)
[2024-12-02] MEDS: HYDROmorphone HCL INJ (*CRX) 1 MG/ML SYR 0.5 MG IV PUSH ×4 (06:25→11:40)
[2024-12-02] MEDS: LACTATED RINGERS 1,000 ML 999 ML IV CONT (06:26)
[2024-12-02 06:28] LABS: Alanine Aminotransferase 29 U/L (6-35); Alkaline Phosphatase 91 U/L (38-126); Anion Gap 10 mmol/L (4-12); Aspartate Amino Transferase 28 U/L (14-36); Bilirubin,Total 0.6 mg/dL (0.2-1.3); Blood Urea Nitrogen 8 mg/dL (7-17); Calcium 8.8 mg/dL (8.4-10.2); Carbon Dioxide 19 mmol/L (22-30); Chloride 105 mmol/L (98-107); Estimated CRCL calculation 123 ml/min; Estimated Glomerular Filt Rate > 60; Glucose 94 mg/dL (65-110); Lipase 69 U/L (23-300); Potassium 3.8 mmol/L (3.4-5.0); Sodium 134 mmol/L (137-145)
--- OUTSIDE RECORDS SUMMARY | 2024-12-02 06:43 | XMS_ITS | Clinical Summary ---
Author Organization [facility] [address] Address [address] [place] [address] Care Team Providers Care Calender Operator Name Role Phone Edinson Hicks MD Primary [...] Comments Blood Pressure 110/76 10/13/2020 2:48 PM TERRITORY SUPERVISOR Pulse 93 10/13/2020 2:48 PM TERRITORY SUPERVISOR Temperature 36.9 ??C (98.4 ??F) 10/13/2020 2:48 PM CS T Respiratory Rate 18 10/13/2020 2:48 PM TERRITORY SUPERVISOR Oxygen Saturation 96% 10/13/2020 2:48 PM TERRITORY SUPERVISOR Inhaled Oxygen Concentration - - Weight 53.8 kg (118 lb 11.2 oz) 10/13/2020 2:48 PM TERRITORY SUPERVISOR Height 165.1 cm (5' 5 ) 10/13/2020 2:48 PM TERRITORY SUPERVISOR Body Mass Index 19.75 10/13/2020 2:48 PM TERRITORY SUPERVISOR Plan of Treatment Health Maintenance Due Date [...] age to complete this topic Care Teams Calender Operator Relationship Specialty Start Date End Date Edinson Hicks MD [address] [place] [address] PCP - General Internal Medicine 05/17/20
--- OUTSIDE RECORDS SUMMARY | 2024-12-02 06:43 | XMS_ITS | Encounter Summary ---
Author Organization [facility] Address [address] [place] [address]. [place], [place] [id number] [place] [id number] Care Team Providers Care Certified Surgical First Assistant Name Role Phone Unavailable Primary Care Provider Unavailabl e Encounter Details Date Type Department Care Team (Late st Contact Info) Description 11/06/2023 Modria Message Enc [facility] Multispecialty Care - [address] [place] [address] Mychart, [facility] Provider Medication Social History Tobacco Use Types [...] Depression Total Score: 10 023 1:49 PM DEFENSIVE LINE COACH documented as of this encounter
--- OUTSIDE RECORDS SUMMARY | 2024-12-02 06:43 | XMS_ITS | Clinical Summary ---
Author Organization [facility] [place] [address] [facility] Address [address] [facility] [place] [address] Care Team Providers Care Director Product Safety Name Role Phone Edinson Hicks MD Primary [...] CDT): Doing well. One year . Seeing ordering box operator for Pap. CMP was normal 6 months [...] management. Assessment & Plan (11/09/2020 10:15 AM RESEARCH SUPPORT SPECIALIST): Highly suspicious for gluten intolerance. I [...] that. Assessment & Plan (10/16/2021 9:49 AM RESEARCH SUPPORT SPECIALIST): Having some breakthrough with Paxil. Will start Buspirone 7.5 mg twice a day. Assessment & Plan (11/27/2020 3:11 PM RESEARCH SUPPORT SPECIALIST): Start on Paxil 10 mg two weeks ago. Due to worsening depression I am increasing it to 20 mg a day. Reassess in 4 weeks. Assessment & Plan (11/09/2020 10:23 AM RESEARCH SUPPORT SPECIALIST): Couldn't tolerate zoloft, will change to paxil Assessment & Plan (09/29/2019 7:47 AM RESEARCH SUPPORT SPECIALIST): Uncontrolled. Will increase sertraline to 150 mg a day Assessment & Plan (05/14/2019 10:43 AM CDT): Not improving, but stable. Cont current treatment. Letter for elastic attacher zigzag dog approved. Assessment & Plan (02/23/2019 10:22 [...] that. Assessment & Plan (10/12/2021 6:56 AM RESEARCH SUPPORT SPECIALIST): Stable on Paxil Assessment & Plan (11/27/2020 3:21 PM RESEARCH SUPPORT SPECIALIST): Worsening. Scored 20 on PHQ-9. I [...] 10/16/2021 Assessment & Plan (10/16/2021 9:38 AM RESEARCH SUPPORT SPECIALIST): Highly recommended that she get the COVID-19 vaccine. Tachycardia 10/16/2021 04/06/2024 Assessment & Plan (02/27/2023 11:54 AM CDT): Stable on metoprolol. Assessment & Plan (10/16/2021 10:16 AM RESEARCH SUPPORT SPECIALIST): EKG shows normal sinus rhythm. Normal [...] 02/14/2021 Assessment & Plan (11/27/2020 3:13 PM RESEARCH SUPPORT SPECIALIST): Mild, new onset 7 days ago. [...] 11/09/2020 Assessment & Plan (09/29/2019 7:47 AM RESEARCH SUPPORT SPECIALIST): Cont albuterol inhaler q 4-6 hours as needed. Will add antibiotic. Neck pain 09/29/2019 02/27/2023 Assessment & Plan (02/27/2023 11:55 AM CDT): resolved Assessment & Plan (09/29/2019 7:50 AM RESEARCH SUPPORT SPECIALIST): Naproxen 220 mg 2 tablets 2 [...] on file Legal Sex Female 9:36 PM RESEARCH SUPPORT SPECIALIST Gender Identity Female 09/04/2021 9:58 AM [...] patient's age to complete this topic Insurance [employer] OPEN ACCESS [employer] OPEN ACCESS Care Teams Director Product Safety Relationship Specialty Start Date End Date Edinson Hicks MD [address] [place] [id number] PCP - General Internal Medicine 04/02/24
--- OUTSIDE RECORDS SUMMARY | 2024-12-02 06:43 | XMS_ITS | Referral Summary ---
Author Organization [facility] [place] [address] [facility] Address [address] [facility] [place] [address] Care Team Providers Care Theatre Manager Name Role Phone Edinson Hicks MD Primary [...] CDT): Doing well. One year . Seeing lead ingot molder for Pap. CMP was normal 6 months [...] management. Assessment & Plan (11/09/2020 10:15 AM MUTUAL FUND ANALYST): Highly suspicious for gluten intolerance. I advised [...] that. Assessment & Plan (10/16/2021 9:49 AM MUTUAL FUND ANALYST): Having some breakthrough with Paxil. Will start Buspirone 7.5 mg twice a day. Assessment & Plan (11/27/2020 3:11 PM MUTUAL FUND ANALYST): Start on Paxil 10 mg two weeks ago. Due to worsening depression I am increasing it to 20 mg a day. Reassess in 4 weeks. Assessment & Plan (11/09/2020 10:23 AM MUTUAL FUND ANALYST): Couldn't tolerate zoloft, will change to paxil Assessment & Plan (09/29/2019 7:47 AM MUTUAL FUND ANALYST): Uncontrolled. Will increase sertraline to 150 mg a day Assessment & Plan (05/14/2019 10:43 AM CDT): Not improving, but stable. Cont current treatment. Letter for gymnastics coach or instructor dog approved. Assessment & Plan (02/23/2019 10:22 [...] that. Assessment & Plan (10/12/2021 6:56 AM MUTUAL FUND ANALYST): Stable on Paxil Assessment & Plan (11/27/2020 3:21 PM MUTUAL FUND ANALYST): Worsening. Scored 20 on PHQ-9. I suggested [...] 10/16/2021 Assessment & Plan (10/16/2021 9:38 AM MUTUAL FUND ANALYST): Highly recommended that she get the COVID-19 vaccine. Tachycardia 10/16/2021 04/06/2024 Assessment & Plan (02/27/2023 11:54 AM CDT): Stable on metoprolol. Assessment & Plan (10/16/2021 10:16 AM MUTUAL FUND ANALYST): EKG shows normal sinus rhythm. Normal EKG. [...] 02/14/2021 Assessment & Plan (11/27/2020 3:13 PM MUTUAL FUND ANALYST): Mild, new onset 7 days ago. Due [...] 11/09/2020 Assessment & Plan (09/29/2019 7:47 AM MUTUAL FUND ANALYST): Cont albuterol inhaler q 4-6 hours as needed. Will add antibiotic. Neck pain 09/29/2019 02/27/2023 Assessment & Plan (02/27/2023 11:55 AM CDT): resolved Assessment & Plan (09/29/2019 7:50 AM MUTUAL FUND ANALYST): Naproxen 220 mg 2 tablets 2 times [...] on file Legal Sex Female 9:36 PM MUTUAL FUND ANALYST Gender Identity Female 09/04/2021 9:58 AM CDT [...] Plan of Treatment Not on file Insurance [place] [address] OPEN ACCESS [employer] OPEN ACCESS Care Teams Theatre Manager Relationship Specialty Start Date End Date Edinson Hicks MD [address] [place] [address] PCP - General Internal Medicine 04/02/24
--- OUTSIDE RECORDS SUMMARY | 2024-12-02 06:43 | XMS_ITS | Encounter Summary ---
Author Organization [facility] Address [facility] [facility]. [place], [place] [id number] [place] [address] Care Team Providers Care Pulverizing And Sifting Operator Name Role Phone Unavailable Primary Care Provider Unavailabl e Encounter Details Date Type Department Care Team (Latest Contact Info) Description 12/01/2023 MyChart Message Enc [facility] Medical [facility] Multispecialty Care - [place] [address] [address] [address] [place] [address] Adelaide Adler MD [address] [facility] [address] [place] [address] Medication Request Social History Tobacco Use Types [...] Total Score: 10 10/22/ 023 1:49 PM PUBLIC AFFAIRS MANAGER documented as of this encounter
--- OUTSIDE RECORDS SUMMARY | 2024-12-02 06:43 | XMS_ITS | Clinical Summary ---
Author Organization [facility] Address [facility] [place] [address] [place] [address] Care Team Providers Care Wastewater Process Engineer Name Role Phone Unavailable Primary Care [...] Cessation:Counseling Given: Not Answered Comments:Counseled by Dr. Adlre. Alcohol Use Standard Drinks/Week Comments Never 0 [...] Comments Blood Pressure 109/96 11/26/2023 5:29 PM DIGITAL PHOTOGRAPHIC PRINTER Pulse 82 11/26/2023 5:29 PM DIGITAL PHOTOGRAPHIC PRINTER Temperature 36.7 ??C (98 ??F) 11/26/2023 5:29 PM DIGITAL PHOTOGRAPHIC PRINTER Respiratory Rate 18 11/26/2023 5:29 PM DIGITAL PHOTOGRAPHIC PRINTER Oxygen Saturation 100% 11/26/2023 5:29 PM DIGITAL PHOTOGRAPHIC PRINTER Inhaled Oxygen Concentration - - Weight 79.4 kg (175 lb) 11/26/2023 5:29 PM DIGITAL PHOTOGRAPHIC PRINTER Height 162.6 cm (5' 4 ) 11/26/2023 5:29 PM DIGITAL PHOTOGRAPHIC PRINTER Body Mass Index 30.04 11/26/2023 5:29 PM DIGITAL PHOTOGRAPHIC PRINTER Plan of Treatment Health Maintenance Due Date [...] 08/25/2020 Annual Physical 10/22/2024 10/22/2023 PHQ-2 (Physician [place]) 11/03/2024 11/26/2023 PHQ-2 (Physician [place]) 11/26/2024 11/26/2023 DTaP, Tdap and Td Vaccines [...]
--- OUTSIDE RECORDS SUMMARY | 2024-12-02 06:43 | XMS_ITS | Encounter Summary ---
Author Organization [facility] Care Team Providers Care Information Delivery Analyst Name Role Phone Edinson Hicks MD Primary Care Provider + Edinson Hicks MD Primary Care Provider + Encounter Details Date Type Department Care Team (Latest Contact Info) Description 11/09/2018 Orders Only [facility] CLINCONV ProviderGladis MD [address] [place] [id number] Social History Tobacco Use Types Packs/Day Years Used Date Smoking Tobacco: Never Comments Unknown Sex and Gender Information Value Date Recorded Sex Assigned at Not on file Legal Sex Female 9:36 PM GAUGE CONTROLLER Gender Identity Female 09/04/2021 9:58 AM CDT Sexual Orientation Straight 09/04/2021 9: 58 AM CDT documented as of this encounter Plan of Treatment Not on file documented as of this encounter Procedures Procedure Name Priority Date/Time Associated Diagnosis Comments COLONOSCOPY - SCAN 11/09/2018 12 :00 AM GAUGE CONTROLLER documented in this encounter Results * COLONOSCOPY - SCAN (11/09/2018 12:00 AM GAUGE CONTROLLER) Narrative 11/09/2018 12:00 AM GAUGE CONTROLLER Ordered by an unspecified provider. Historical Provider Final Res ult documented in this encounter Visit Diagnoses Not on filedocumented in this encounter Additional Health Concerns Infection Onset Date Last Indicated Resolved Time COVID: Suspected 09/04/2021 09/04/2021 09/18/2021 3:05 AM GAUGE CONTROLLER documented as of this encounter Care Teams Information Delivery Analyst Relationship Specialty Start Date End Date Edinson Hicks MD [address] [place] [address] PCP - General Internal Medicine 02/15/19 10/22/23 Edinson Hicks MD [address] [place] [address] PCP - General Internal Medicine 04/02/24 documented as of this encounter
[2024-12-02] MEDS: MORPHINE SULFATE (*CRX) 4 MG/ML INJ IV PUSH (07:03)
[2024-12-02] MEDS: METOCLOPRAMIDE HCL INJ 10 MG/2 ML VIAL IV PUSH (07:53)
[2024-12-02] MEDS: SODIUM CHLORIDE 0.9% IV 1,000 ML 999 ML IV CONT (07:53)
[2024-12-02 08:14] LABS: Add Urine Microscopic? YES; Appearance Urine Turbid (Clear); Bacteria Urine 4+ /hpf; Bilirubin Urine Negative (Negative); Blood Urine 3+ (Negative); Color Urine Dark Yellow (Yellow); Glucose Urine UA Negative (Negative); Ketones Urine 2+ mg/dL (Negative); Leukocyte Esterase Ur 2+ LEU/UL (Negative); Nitrate Urine Negative (Negative); Protein Urine 1+ mg/dL (Negative); RBC Urine >100 /hpf (0-2); Specific Grav Ur 1.028 (1.001-1.035); Squamous Epithelial Cell Urine Many /hpf (Few); WBC Urine 51-100 /hpf (0-3)
--- NOTE | 2024-12-02 09:16 | PC.NURSE ---
pt in ultrasound at this time.
--- NOTE | 2024-12-02 11:01 | P.CONUR_ITS ---
Assessment and Plan Assessment and plan (1) Left ureteral stone: Code(s): N20.1 - Calculus of ureter Status: Acute Assessment and Plan: * Acute onset left flank pain with micro hematuria and mild left hydronephrosis highly suggestive of a left ureteral calculus * Just as is a risk factor kidney stone formation these patients are also more likely to pass stones because passive ureteral dilatation. * Agree with admission for pain control. If pain persist over the next 24-48 we can consider low-dose CT scanned and ureteroscopy with stone extraction or stent placement. * Although her urine appears contaminated I agree with IV antibiotics pending urine culture results Urology Consult Note HPI Date Seen: 12/02/24 Requesting Physician: Dr. Hussein Spring Primary Care Provider: Edinson Hicks, MD Consult Narrative Narrative: Codi Keller is a 24 year old, female at 8 weeks gestation who presents to the emergency department with acute left flank pain radiating to her left lower quadrant. The patient has a history of urolithiasis having spontaneously passed 1 prior stone that was not temporarily related to her prior . Urinalysis shows micro hematuria and renal ultrasound demonstrates mild left hydronephrosis. This tried a flank pain, micro hematuria and hydronephrosis early in is suggestive of a probable ureteral calculus. In [address] scan of the abdomen and pelvis that demonstrated a punctate left renal stone Review of Systems 2 Review of Systems: All systems reviewed & are unremarkable except as noted in HPI and below PMFSH Past Medical History Medical History Gestational diabetes mellitus (GDM) GERD (gastroesophageal reflux disease) Frequent headaches Anxiety and depression Surgical History Surgical History History of placement of ear tubes History of tonsillectomy Family History Family History Father Hypertension Diabetes mellitus Cerebrovascular accident Grandparent Hypertension Diabetes mellitus Congestive heart failure Sibling Hypothyroid Social History Social History Smoking status: Never smoker Substance use: never Lack of Transportation: No Lack of Food: Never True Current Housing: I Have Housing Concerned About Future Housing: No Difficulty Paying Gas/Electric Bills: No Difficulty Paying for Meds: No Currently Unemployed: No Education: High School Diploma/GED Difficulty w/ Childcare or Family Care: No Spiritual care concerns: No Meds Home Medications and Allergies Home Medications ?Medication ?Instructions ?Recorded ?Confirmed ?Type fluoxetine 20 mg tablet 20 mg PO DAILY 04/15/24 08/02/24 History Allergies Allergy/AdvReac Type Severity Reaction Status Date / Time Latex, Natural Rubber AdvReac Mild Rash Verified 12/02/24 05:45 midodrine AdvReac Mild Rash Verified 12/02/24 05:45 Vital Signs Vital Signs - 24 hr 12/02/24 05:45 12/02/24 06:30 12/02/24 07:00 Temperature 97.6 F Pulse Rate 100 86 85 Respiratory Rate 19 16 20 Blood Pressure 114/73 102/74 104/75 Pulse Oximetry 100 100 99 Oxygen Delivery Room Air 12/02/24 08:39 12/02/24 10:34 Temperature Pulse Rate 81 87 Respiratory Rate 17 17 Blood Pressure 103/75 104/77 Pulse Oximetry 100 98 Oxygen Delivery Exam 2 Const: General: no acute distress Resp: Effort & Inspection: normal respiratory effort GI: Inspection: non-distended GI Palp: No abdominal tenderness and No Guarding due to palpation present (GI) Auscultation: normal bowel sounds Results Labs 12/02/24 06:11 12/02/24 06:11 Labs: Short CBC 12/02/24 Range/Units 06:11 WBC 7.9 (4.5-10.0) K/mm3 Hgb 13.7 D (12.0-15.0) g/dL Hct 41.4 (37.0-47.0) % Plt Count 219 (150-375) k/mm3 BMP 12/02/24 06:11 Sodium 134 L Potassium 3.8 Chloride 105 Carbon Dioxide 19 L BUN 8 Creatinine 0.57 L Glucose 94 Calcium 8.8 Liver Function 12/02/24 Range/Units 06:11 Total Bilirubin 0.6 (0.2-1.3) mg/dL AST 28 (14-36) U/L ALT 29 (6-35) U/L Alkaline Phosphatase 91 (38-126) U/L Albumin 4.0 (3.5-5.1) g/dL Urine 12/02/24 Range/Units 07:58 Urine Color Dark yellow (Yellow) Urine Appearance Turbid H (Clear) Urine pH 6.0 (5.0-9.0) Ur Specific [place] 1.028 (1.001-1.035) Urine Protein 1+ H (Negative) mg/dL Urine Glucose (UA) Negative (Negative) mg/dL
--- NOTE | 2024-12-02 12:38 | PM.IMHP ---
H&P: HPI History of Present Illness Date/Time: 12/02/24 12:38 Chief Complaint: Pain Narrative: 24 y/o at 8 weeks 4 days gestation by LMP 10/03/24, here with acute onset of left flank pain. She says she has a history of kidney stone in the past. She does not have a urologist. She has no dysuria. No vaginal bleeding. Pelvic ultrasound shows alba IUP with CRL consistent with dates. Renal ultrasound shows mild hydronephrosis on the left. Review of Systems Review of Systems: All systems reviewed & are unremarkable except as noted in HPI and below PMFSH Past Medical History Medical History History of kidney stones Gestational diabetes mellitus (GDM) GERD (gastroesophageal reflux disease) Frequent headaches Anxiety and depression Surgical History Surgical History History of placement of ear tubes History of tonsillectomy Family History Family History Father Hypertension Diabetes mellitus Cerebrovascular accident Grandparent Hypertension Diabetes mellitus Congestive heart failure Sibling Hypothyroid Social History Social History Smoking status: Never smoker Substance use: never Lack of Transportation: No Lack of Food: Never True Current Housing: I Have Housing Concerned About Future Housing: No Difficulty Paying Gas/Electric Bills: No Difficulty Paying for Meds: No Currently Unemployed: No Education: High School Diploma/GED Difficulty w/ Childcare or Family Care: No Spiritual care concerns: No Meds Home Medications and Allergies Home Medications ?Medication ?Instructions ?Recorded ?Confirmed ?Type fluoxetine 20 mg tablet 20 mg PO DAILY 04/15/24 08/02/24 History Allergies Allergy/AdvReac Type Severity Reaction Status Date / Time Latex, Natural Rubber AdvReac Mild Rash Verified 12/02/24 05:45 midodrine AdvReac Mild Rash Verified 12/02/24 05:45 Vital Signs Vital Signs - 24 hr 12/02/24 05:45 12/02/24 06:30 12/02/24 07:00 Temperature 36.4 C Pulse Rate 100 86 85 Respiratory Rate 19 16 20 Blood Pressure 114/73 102/74 104/75 Pulse Oximetry 100 100 99 Oxygen Delivery Room Air 12/02/24 08:39 12/02/24 10:34 12/02/24 12:28 Temperature Pulse Rate 81 87 73 Respiratory Rate 17 17 Blood Pressure 103/75 104/77 102/64 Pulse Oximetry 100 98 Oxygen Delivery Exam Const: Orientation/consciousness: patient oriented x3 Other: Well-developed, well-nourished female in no acute distress. Neck: Thyroid: thyroid normal Lymphatic: no lymphadenopathy noted (in neck, axilla or inguinal nodes) Resp: Effort & Inspection: normal respiratory effort Auscultation: clear to auscultation bilaterally Cardio: Rate: regular rate Rhythm: regular rhythm Heart sounds: S1 normal heart sound present and S2 normal heart sound present GI: Other: ABD: Soft, nontender, nondistended. No guarding or rebound tenderness. No hepatosplenomegaly. : General: Yes no CVA tenderness Other: Pelvic exam deferred Back/Spine/Pelvis: Back: no CVA tenderness Skin: General skin exam: normal color and no rashes or lesions noted Neuro: General: patient oriented x3 Extrem: Other: Extremities: nontender with no edema Psych: Mental Status: mental status grossly normal Affect: normal affect H&P: Results Labs Labs: Short CBC 12/02/24 Range/Units 06:11 WBC 7.9 (4.5-10.0) K/mm3 Hgb 13.7 D (12.0-15.0) g/dL Hct 41.4 (37.0-47.0) % Plt Count 219 (150-375) k/mm3 BMP 12/02/24 06:11 Sodium 134 L Potassium 3.8 Chloride 105 Carbon Dioxide 19 L BUN 8 Creatinine 0.57 L Glucose 94 Calcium 8.8 Liver Function 12/02/24 Range/Units 06:11 Total Bilirubin 0.6 (0.2-1.3) mg/dL AST 28 (14-36) U/L ALT 29 (6-35) U/L Alkaline Phosphatase 91 (38-126) U/L Albumin 4.0 (3.5-5.1) g/dL Urine 12/02/24 Range/Units 07:58 Urine Color Dark yellow (Yellow) Urine Appearance Turbid H (Clear) Urine pH 6.0 (5.0-9.0) Ur Specific [place] 1.028 (1.001-1.035) Urine Protein 1+ H (Negative) mg/dL Urine Glucose (UA) Negative (Negative) mg/dL Assessment and Plan Assessment and plan (1) Kidney stone complicating : Code(s): O99.891 - Other specified diseases and conditions complicating ; N20.0 - Calculus of kidney Status: Acute Assessment and Plan: A: IUP at 8 weeks 4 days with likely kidney stone. Pain is better currently. P: Continue IVF, Rocephin, and pain control. Appreciate urology consultation.
[2024-12-02] MEDS: DEXTROSE 5%/0.45% SOD CHL 1,000 ML 200 ML IV CONT ×3 (12:44→22:37)
[2024-12-02] MEDS: oxyCODONE/ACETAMINOPHEN (*CRX) 5-325 MG TABLET 1 TABLET PO ×2 (12:53→17:40)
--- NOTE | 2024-12-02 23:28 | PC.NURSE ---
Dr. Roa called, update on pt, pain, and labs to draw. Orders received to draw CBC, CMP, and Hemoglobin A1C at 0500.
[2024-12-03] VITALS (8 sets, daily range): BP systolic 94–99; BP diastolic 57–62; PULSE 77–105; RESP 16–17; TEMP 36.9–37.2; O2SAT 97–100
[2024-12-03] MEDS: ONDANSETRON INJ 4 MG/2 ML VIAL IV PUSH ×2 (01:45→07:32)
[2024-12-03] MEDS: DEXTROSE 5%/0.45% SOD CHL 1,000 ML 200 ML IV CONT (03:36)
[2024-12-03 05:16] LABS: Basophils Percent Auto 0.1 % (0.2-1.2); Eosinophils Absolute Auto 0.1 K/mm3 (0-0.3); Eosinophils Percent Auto 0.6 % (0-4.4); Hematocrit 34.6 % (37.0-47.0); Hemoglobin 11.6 g/dL (12.0-15.0); Immature Granulocyte Absolute 0.02 K/mm3 (0.00-0.031); Immature Granulocyte Percent A 0.2 % (0-0.5); Lymphocytes Absolute Auto 2.26 K/mm3 (0.9-3.2); Lymphocytes Percent Auto 27.5 % (18.3-44.2); Mean Corpuscular HGB Conc 33.5 g/dl (32-36); Mean Corpuscular Hemoglobin 29.4 pg (26-34); Mean Corpuscular Volume 87.8 fl (80-100); Mean Platelet Volume 10.3 fl (7.4-10.4); Monocytes Absolute Auto 0.5 K/mm3 (0.1-0.6); Monocytes Percent Auto 6.1 % (2.6-8.5); Neutrophils Absolute Auto 5.4 K/mm3 (1.3-6.7); Neutrophils Percent Auto 65.5 % (45.5-73.1); Platelet Count Result 181 k/mm3 (150-375); Red Blood Count 3.94 M/mm3 (4.2-5.4); White Blood Count 8.2 K/mm3 (4.5-10.0)
[2024-12-03 05:25] LABS: Alanine Aminotransferase 19 U/L (6-35); Albumin Level 3.1 g/dL (3.5-5.1); Alkaline Phosphatase 74 U/L (38-126); Anion Gap 9 mmol/L (4-12); Aspartate Amino Transferase 17 U/L (14-36); Bilirubin,Total 0.5 mg/dL (0.2-1.3); Blood Urea Nitrogen 3 mg/dL (7-17); Calcium 8.4 mg/dL (8.4-10.2); Carbon Dioxide 20 mmol/L (22-30); Chloride 111 mmol/L (98-107); Estimated CRCL calculation 124 ml/min; Estimated Glomerular Filt Rate > 60; Glucose 114 mg/dL (65-110); Potassium 3.3 mmol/L (3.4-5.0); Sodium 140 mmol/L (137-145)
[2024-12-03 05:26] LABS: Hemoglobin A1C 5.1 % (<5.7)
--- NOTE | 2024-12-03 06:32 | PC.NURSE ---
Dr. Luu in to see pt. Pt denies left flank pain. Only having nausea.
--- NOTE | 2024-12-03 06:36 | WPDUROPN2 ---
Progress Note: A&P Assessment and Plan (1) Left sided abdominal pain: Code(s): R10.9 - Unspecified abdominal pain Status: Acute Assessment and Plan: Suspect small left ureteral stone - may have passed Possible UTI - await culture No plans for intervention currently. Ureteroscopy +/- stent only if significant pain recurs Subjective Subjective Date/Time Seen: 12/03/24 06:36 Interval history: Comfortable overnight - feeling much better with no flank/abd pain and only mild nausea Review of Systems Review of Systems: All systems reviewed & are unremarkable except as noted in HPI and below Exam Const: General: no acute distress Resp: Effort & Inspection: normal respiratory effort GI: Inspection: non-distended GI Palp: No abdominal tenderness and No Guarding due to palpation present (GI) Auscultation: normal bowel sounds Objective Data Vital Signs Vital Signs: Vital Signs - 24 hr 12/02/24 07:00 12/02/24 08:39 12/02/24 10:34 Temperature Pulse Rate 85 81 87 Respiratory Rate 20 17 17 Blood Pressure 104/75 103/75 104/77 Pulse Oximetry 99 100 98 Oxygen Delivery 12/02/24 12:28 12/02/24 12:54 12/02/24 15:29 Temperature 97.6 F Pulse Rate 73 79 92 Respiratory Rate 18 Blood Pressure 102/64 102/64 115/70 Pulse Oximetry Oxygen Delivery 12/02/24 15:31 12/02/24 19:34 12/02/24 19:35 Temperature 98.7 F 98.2 F Pulse Rate 72 Respiratory Rate Blood Pressure 89/59 L Pulse Oximetry 100 Oxygen Delivery 12/02/24 19:46 12/02/24 19:46 12/02/24 23:57 Temperature 98.2 F 99.1 F Pulse Rate 68 74 Respiratory Rate Blood Pressure 100/59 L 100/59 L Pulse Oximetry 100 99 Oxygen Delivery 12/02/24 23:58 12/02/24 23:58 12/03/24 03:37 Temperature 99.1 F Pulse Rate 78 85 Respiratory Rate Blood Pressure 97/58 L 97/58 L Pulse Oximetry 99 97 Oxygen Delivery 12/03/24 03:38 12/03/24 03:39 12/03/24 03:39 Temperature 98.7 F 98.7 F Pulse Rate 79 105 H Respiratory Rate 17 Blood Pressure 94/57 L 94/57 L Pulse Oximetry 97 Oxygen Delivery 12/03/24 05:26 12/03/24 06:28 12/03/24 06:35 Temperature Pulse Rate 86 Respiratory Rate Blood Pressure 98/61 L Pulse Oximetry 98 99 Oxygen Delivery Room Air Intake/Output Intake/Output: Intake & Output 11/30/24 12/01/24 12/02/24 12/03/24 23:59 23:59 23:59 23:59 Intake Total 4050 1000 Output Total 1800 1100 Balance 2250 -100 Meds/Results Medications: Active Medications Generic Name Dose Route Start Last Admin Trade Name Freq PRN Reason Stop Dose Admin Acetaminophen 650 mg 12/02/24 12:43 Acetaminophen 325 Mg Tablet PO Q6H PRN Mild Pain (1-3) or Headache Fluoxetine HCl 20 mg 12/02/24 18:00 Fluoxetine Hcl 20 Mg Capsule PO EVENING ELENA Dextrose/Sodium Chloride 1,000 mls @ 200 mls/hr 12/02/24 12:25 12/03/24 03:36 Dextrose 5% Sodium Chloride 0.45% IV CONT 200 mls/hr .Q5H ELENA Administration Ceftriaxone Sodium 1 gm in 50 mls @ 100 mls/hr 12/03/24 10:00 Rocephin 1 Gm/Ns 50 Ml IVPB Q24H ELENA Ondansetron HCl 4 mg 12/02/24 12:43 12/03/24 01:45 Ondansetron Inj 4 Mg/2 Ml Vial IV PUSH 4 mg Q6H PRN Administration Nausea Oxycodone/Acetaminophen 1 tablet 12/02/24 12:43 12/02/24 17:40 Oxycodone/Acetaminophen (*Crx) 5-325 Mg Tablet PO 1 tablet Q4H PRN Administration Pain Rated 4-6 Oxycodone/Acetaminophen 1 tab 12/02/24 12:43 Oxycodone/Acetaminophen (*Crx) 10-325 Mg Tablet PO Q4H PRN Pain Rated 7-10 Vit/Calcium/Iron/Folic Ac 1 tab 12/02/24 12:50 Multivit/Min/Pren/Fol Ac/Iron Tablet PO DAILY [facility] Radiology Results: ITS Impressions Obstetrics Ultrasound 12/02/24 07:58 IMPRESSION: 1. SL IUP with an EGA of 8 weeks, 1 days (EDC by current ultrasound of 07/13/2025). Renal Ultrasound 12/02/24 10:12 Impression: 1: Mild left hydronephrosis. Cannot exclude obstructing ureteral stone. Consider correlation with CT. 2: Echogenic foci centrally in the right kidney. Cannot exclude nonobstructing nephrolithiasis. Labs Labs: Laboratory Results - last 24 hr 12/02/24 12/02/24 12/03/24 06:11 07:58 05:02 WBC 8.2 RBC 3.94 L Hgb 11.6 L Hct 34.6 L MCV 87.8 MCH 29.4 MCHC 33.5 RDW 14.0 Plt Count 181 MPV 10.3 Immature Gran % (Auto) 0.2 Neut % (Auto) 65.5 Lymph % (Auto) 27.5 [place] % (Auto) 6.1 Eos % (Auto) 0.6 Baso % (Auto) 0.1 L Lymph # (Auto) 2.26 [place] # (Auto) 0.5 Eos # (Auto) 0.1 Baso # (Auto) 0.0 Abs Immat Gran (auto) 0.02 Absolute Neuts (auto) 5.4 Absolute Nucleated RBC 0.000 Nucleated RBC % 0.0 Sodium 140 Potassium 3.3 L Chloride 111 H Carbon Dioxide 20 L Anion Gap 9 BUN 3 L D Creatinine 0.58 L Estim Creat Clear Calc 124 Estimated GFR > 60 Glucose 114 H Hemoglobin A1c 5.1 Calcium 8.4 Total Bilirubin 0.5 AST 17 ALT 19 Alkaline Phosphatase 74 Total Protein 6.0 L Albumin 3.1 L Beta HCG, Quant 623733.00 Urine Color Dark yellow Urine Appearance Turbid H Urine pH 6.0 Ur Specific [place] 1.028 Urine Protein 1+ H Urine Glucose (UA) Negative Urine Ketones 2+ H Ur Blood (Man) 3+ H Urine Nitrate Negative Urine Bilirubin Negative Urine Urobilinogen 1.0 Leukocyte Esterase Rfl 2+ H Urine RBC >100 H Urine WBC 51-100 H Ur Squamous Epith Cells Many H Urine Bacteria 4+ H Urine Casts 3-5
--- NOTE | 2024-12-03 07:50 | PC.NURSE ---
Pt's nausea has decreased down to a 1 out of 10. Encouraged to order breakfast. Pt only had a couple bites of her jello.
[2024-12-03] MEDS: ACETAMINOPHEN 325 MG TABLET 650 MG PO (08:43)
--- NOTE | 2024-12-03 09:01 | PC.NURSE ---
Dr. Roa also stated pt could get Flonase over the counter and use 1 spray in each nostril daily for ear ache and it might help her headache if sinus in origin.
--- NOTE | 2024-12-03 09:01 | PC.NURSE ---
Dr. Roa returned page and informed pt's left flank pain has resolved. Pt has a headache, right ear ache, and nausea. Nausea has improved since Zofran this am. K+ was 3.3. Just finished a bag of IV fluids. Pt couldn't remember when she had ate last or last BM. Pt has ordered breakfast. Informed MD that Dr. Lehman was in to see pt this am. Pt voiding pale yellow urine/ continue to strain urine. Order received to saline lock IV, give [address] Desirae Becerra will be covering for him today and he hopes pt can be discharged by noon.
--- NOTE | 2024-12-03 10:23 | PM.DS ---
DS: Admitting Diagnosis Discharge Date 12/03/24 Admitting Diagnosis Likely kidney stone IUP at 8 weeks DS: Discharge Diagnosis Discharge Diagnosis (1) : Code(s): Z34.90 - Encounter for supervision of normal , unspecified, unspecified trimester Status: Acute (2) Kidney stone complicating : Code(s): O99.891 - Other specified diseases and conditions complicating ; N20.0 - Calculus of kidney Status: Acute DS: Summary Hospital Course Hospital Course: 24 y/o at 8 weeks gestation who presented to ED with left flank pain. Admitted for obs for pain control, urology consult, IVF, antibiotics. She felt much better and was able to go home on 12/03/24 Time Spent with Patient Time attestation: Total time spent providing and/or coordinating discharge services: DS: Data Data Completed and Pending Labs on day of discharge: Labs from last 24 hours 12/03/24 05:02 WBC 8.2 RBC 3.94 L Hgb 11.6 L Hct 34.6 L MCV 87.8 MCH 29.4 MCHC 33.5 RDW 14.0 Plt Count 181 MPV 10.3 Immature Gran % (Auto) 0.2 Neut % (Auto) 65.5 Lymph % (Auto) 27.5 [place] % (Auto) 6.1 Eos % (Auto) 0.6 Baso % (Auto) 0.1 L Lymph # (Auto) 2.26 [place] # (Auto) 0.5 Eos # (Auto) 0.1 Baso # (Auto) 0.0 Abs Immat Gran (auto) 0.02 Absolute Neuts (auto) 5.4 Absolute Nucleated RBC 0.000 Nucleated RBC % 0.0 Sodium 140 Potassium 3.3 L Chloride 111 H Carbon Dioxide 20 L Anion Gap 9 BUN 3 L D Creatinine 0.58 L Estim Creat Clear Calc 124 Estimated GFR > 60 Glucose 114 H Hemoglobin A1c 5.1 Calcium 8.4 Total Bilirubin 0.5 AST 17 ALT 19 Alkaline Phosphatase 74 Total Protein 6.0 L Albumin 3.1 L Discharge Plan Discharge Attending physician on discharge: Mau Roa Consulting providers: Sarthak Lehman Discharging Clinician: Mau Roa Patient Disposition: Home, Self-Care Activity: as tolerated Diet: regular Discharge Instructions: Call or return if temperature above 100.4? F, increased pain, or any new problems. Patient Instructions: Antibiotic Form Patient Language: Mongolian Stand Alone Forms: General Discharge Information Follow-up/Referrals: Mau Roa MD [Physician] - Keep Reg. Scheduled Appt. Discharge Medications: New ondansetron 4 mg tablet,disintegrating 4 mg PO Q6H PRN (Reason: nausea and vomiting) Qty: 20 2RF oxycodone-acetaminophen [Endocet] 5-325 mg tablet 1 tablet PO Q6H PRN (Reason: pain) Qty: 20 0RF Continued fluoxetine 20 mg tablet 20 mg PO DAILY Date of admission: 12/02/24 11:51 Primary Care Provider: Kurt,Edinson Tabor Admitting Provider: Mau Roa Attending physician on admission: Mau Roa Condition: Stable
--- NOTE | 2024-12-03 11:00 | PC.NURSE ---
Pt continues to have no left flank pain. Intermittent nausea with eating. Pt did finish all of her muffin and banana from breakfast. Still has a headache. Pt requesting to go home.
--- NOTE | 2024-12-03 11:45 | PC.NURSE ---
Dr. Roa given update from 1100 note. Pt requesting to go home. OK to discharge to home.
== END 2024-12-03 13:26 | disposition home or self-care (01) | DRG 833 ==
LOC: ANHED 06:41 → ANHOBPP 11:59
PROVIDERS: Admitting Provider Obstetrics & Gynecology; Emergency Provider Student in an Organized Health Care Education/Training Program; PCP Internal Medicine; Visit Provider Obstetrics & Gynecology
DX: O26.891 Other specified pregnancy related conditions, first trimester (principal); N20.0 Calculus of kidney; Z3A.08 8 weeks gestation of pregnancy
CPT/HCPCS: 36415; 76775; 76801; 76817; 80053; 81001; 83036; 83690; 84702; 85025; 96361; 96365; 96375; 96376; 99285; A9270; G0378; J0696; J1171; J2270; J2405; J2765; J7030; J7120

== ENCOUNTER 2025-04-22 10:36 | Observation (INO) | payer OTHER, SELFPAY ==
[2025-04-22 11:45] VITALS: BP 98/61; PULSE 113
[2025-04-22 12:00] VITALS: BP 96/66; PULSE 97
[2025-04-22 12:12] LABS: Basophils Percent Auto 0.2 % (0.2-1.2); Eosinophils Percent Auto 0.5 % (0-4.4); Hematocrit 28.8 % (37.0-47.0); Hemoglobin 9.3 g/dL (12.0-15.0); Immature Granulocyte Absolute 0.02 K/mm3 (0.00-0.031); Immature Granulocyte Percent A 0.3 % (0-0.5); Lymphocytes Absolute Auto 1.73 K/mm3 (0.9-3.2); Lymphocytes Percent Auto 28.5 % (18.3-44.2); Mean Corpuscular HGB Conc 32.3 g/dl (32-36); Mean Corpuscular Hemoglobin 28.1 pg (26-34); Mean Platelet Volume 10.2 fl (7.4-10.4); Monocytes Absolute Auto 0.4 K/mm3 (0.1-0.6); Monocytes Percent Auto 6.3 % (2.6-8.5); Neutrophils Absolute Auto 3.9 K/mm3 (1.3-6.7); Neutrophils Percent Auto 64.2 % (45.5-73.1); Platelet Count Result 196 k/mm3 (150-375); Red Blood Count 3.31 M/mm3 (4.2-5.4); White Blood Count 6.1 K/mm3 (4.5-10.0)
[2025-04-22 12:22] LABS: INR 0.9; Prothrombin Time 12.6 Seconds (11.1-14.7)
[2025-04-22 12:23] LABS: Partial Thromboplastin Time 25.7 Seconds (22.3-36.8)
[2025-04-22 12:27] LABS: Add Urine Microscopic? YES; Appearance Urine Clear (Clear); Bacteria Urine 1+ /hpf; Bilirubin Urine Negative (Negative); Blood Urine Negative (Negative); Color Urine Yellow (Yellow); Glucose Urine UA Negative (Negative); Ketones Urine Negative (Negative); Leukocyte Esterase Ur 2+ LEU/UL (Negative); Nitrate Urine Negative (Negative); Non Pathogenic Casts 0-2; Protein Urine Trace mg/dL (Negative); RBC Urine 0-2 /hpf (0-2); Specific Grav Ur 1.014 (1.001-1.035); Squamous Epithelial Cell Urine Moderate /hpf (Few); Urobilinogen Urine 0.2 mg/dL (<2.0); pH Urine 8.5 (5.0-9.0)
[2025-04-22] MEDS: LORATADINE 10 MG TABLET PO (12:44)
[2025-04-22 13:00] VITALS: BMI 30.2
--- NOTE | 2025-04-22 13:02 | OBADM ---
This patient, Codi Keller, admitted to the OB room Labor/Delivery/Recovery 118 for observation. Patient/family oriented to hospital policies and general routines including ID bracelet, bed and alarms, visiting hours, pain management, procedures, bathroom and other care routines, personal items, smoking policy, room service/diet, and visiting hours. Patient/Family are encouraged to report perceived risks to care and to ask questions if they do not understand what they are told or what they should do.
--- NOTE | 2025-04-22 14:04 | PM.OBTRLD ---
OB - Triage/Final Diagnosis Visit Information Date of evaluation: 04/22/25 Reason for evaluation: threatened labor Comments/Additional reasons for admission: I have assessed the risk for this patient, Codi Keller, and determined that she would benefit from observation care. Evaluation Laboratory results: Laboratory Tests 04/22/25 11:59 WBC 6.1 RBC 3.31 L Hgb 9.3 L Hct 28.8 L MCV 87.0 MCH 28.1 MCHC 32.3 RDW 13.0 Plt Count 196 MPV 10.2 Immature Gran % (Auto) 0.3 Neut % (Auto) 64.2 Lymph % (Auto) 28.5 [place] % (Auto) 6.3 Eos % (Auto) 0.5 Baso % (Auto) 0.2 Lymph # (Auto) 1.73 [place] # (Auto) 0.4 Eos # (Auto) 0.0 Baso # (Auto) 0.0 Abs Immat Gran (auto) 0.02 Absolute Neuts (auto) 3.9 Absolute Nucleated RBC 0.000 Nucleated RBC % 0.0 PT 12.6 INR 0.9 APTT 25.7 Urine Color Yellow Urine Appearance Clear Urine pH 8.5 Ur Specific [place] 1.014 Urine Protein Trace Urine Glucose (UA) Negative Urine Ketones Negative Ur Blood (Man) Negative Urine Nitrate Negative Urine Bilirubin Negative Urine Urobilinogen 0.2 Leukocyte Esterase Rfl 2+ H Urine RBC 0-2 Urine WBC 11-20 H Ur Squamous Epith Cells Moderate Urine Bacteria 1+ H Urine Casts 0-2 Vital signs: Vital Signs - 24 hr 04/22/25 11:45 04/22/25 12:00 Pulse Rate 113 H 97 Blood Pressure 98/61 L 96/66 L
== END 2025-04-22 13:22 | disposition home or self-care (01) ==
PROVIDERS: Admitting Provider Obstetrics & Gynecology; PCP Internal Medicine; Visit Provider Obstetrics & Gynecology
DX: O47.03 False labor before 37 completed weeks of gestation, third trimester (principal); Z3A.28 28 weeks gestation of pregnancy
CPT/HCPCS: 36415; 81001; 85025; 85610; 85730; A9270; G0378; G0379

== ENCOUNTER 2025-05-24 11:10 | Observation (INO) | payer OTHER, SELFPAY ==
[2025-05-24] VITALS (63 sets, daily range): BP systolic 97–113; BP diastolic 56–83; PULSE 94–145; RESP 20; TEMP 36.6; O2SAT 98–100; BMI 29.9
--- NOTE | ~2025-05-24 | US_ITS ---
EXAMINATION: US OB BPP wo non-stress DATE: 05/24/2025 15:03 CDT INDICATION: Maternal tachycardia TECHNIQUE: Real-time transabdominal obstetric ultrasound. FINDINGS: There is a single intrauterine gestation in variable presentation. The placenta is posterior. cardiac activity and movement is noted with a heart rate of 137 beats per minute. Biophysical profile: breathin of 2 movement: 2 of 2 tone: 2 of 2 Amniotic fluid pocket: 2 of 2 Total score: 8 of 8 Amniotic fluid index measures 10.9 cm (normal range is 7.3 to 27.5 cm). IMPRESSION: 1. Single intrauterine gestation in variable presentation. 2: Total biophysical profile score of 8 out of 8. Reviewed, dictated and finalized at location A.
--- OUTSIDE RECORDS SUMMARY | 2025-05-24 12:16 | XMS_ITS | Encounter Summary ---
Author Organization [facility] Address [address] [place] [address] Care Team Providers Care Manager Switch Name Role Phone Unavailable Primary Care Provider Unavailabl e Encounter Details Date Type Department Care Team (Late st Contact Info) Description 11/06/2023 Ryan Message Enc [facility] Multispecialty Care - [address] [place] [address] Ezekiel, [facility] Provider Medication Social History Tobacco Use Types [...] Depression Total Score: 10 023 1:49 PM MANAGER HOME documented as of this encounter
--- OUTSIDE RECORDS SUMMARY | 2025-05-24 12:16 | XMS_ITS | Encounter Summary ---
Author Organization [facility] Healthcare Address [address] [place] [address] Care Team Providers Care Technical Account Manager Name Role Phone Edinson Hicks MD Primary Care Provider + Encounter Details Date Type Department Care Team (Late st Contact Info) Description 04/30/2025 Orders Only [facility] Health Information Management [address] [place] [address] Scanning, Provider Social History Tobacco Use Types Packs/Day Years Used Date Smoking Tobacco: Never Smokeless Tobacco: Never Alcohol Use Standard Drinks/Week Comments Yes 0 [...] on file Legal Sex Female 9:36 PM AIRPORT SALES AGENT Gender Identity Female 09/04/2021 9:58 AM CDT Sexual Orientation Straight 09/04/2021 9: 58 AM CDT documented as of this encounter Plan of Treatment Not on file documented as of this encounter Procedures Procedure Name Priority Date/Time Associated Diagnosis Comments SCAN - LABS 04/30/2025 documented in this encounter Results * SCAN - LABS (04/30/2025) us Provider Scanning Final Result documented in this encounter Visit Diagnoses Not on filedocumented in this encounter Care Teams Technical Account Manager Relationship Specialty Start Date End Date Edinson Hicks MD [address] [place] [address] PCP - General Internal Medicine 04/02/24 documented as of this encounter
--- OUTSIDE RECORDS SUMMARY | 2025-05-24 12:16 | XMS_ITS | Encounter Summary ---
Author Organization [facility] Care Team Providers Care Dockworker Name Role Phone Edinson Hicks MD Primary Care Provider + Edinson Hicks MD Primary Care Provider + Encounter Details Date Type Department Care Team (Latest Contact Info) Description 11/09/2018 Orders Only [facility] ProviderGladis MD [address] [place] [address] Social History Tobacco Use Types Packs/Day Years Used Date Smoking Tobacco: Never Comments Unknown Sex and Gender Information Value Date Recorded Sex Assigned at Not on file Legal Sex Female 9:36 PM DIRECTOR VALIDATION Gender Identity Female 09/04/2021 9:58 AM CDT Sexual Orientation Straight 09/04/2021 9: 58 AM CDT documented as of this encounter Plan of Treatment Not on file documented as of this encounter Procedures Procedure Name Priority Date/Time Associated Diagnosis Comments COLONOSCOPY - SCAN 11/09/2018 12 :00 AM DIRECTOR VALIDATION documented in this encounter Results * COLONOSCOPY - SCAN (11/09/2018 12:00 AM DIRECTOR VALIDATION) Narrative 11/09/2018 12:00 AM DIRECTOR VALIDATION Ordered by an unspecified provider. Historical Provider Final Res ult documented in this encounter Visit Diagnoses Not on filedocumented in this encounter Additional Health Concerns Infection Onset Date Last Indicated Resolved Time COVID: Suspected 09/04/2021 09/04/2021 09/18/2021 3:05 AM DIRECTOR VALIDATION documented as of this encounter Care Teams Dockworker Relationship Specialty Start Date End Date Edinson Hicks MD [address] [place] [address] PCP - General Internal Medicine 02/15/19 10/22/23 Edinson Hicks MD [address] [place] [address] PCP - General Internal Medicine 04/02/24 documented as of this encounter
--- OUTSIDE RECORDS SUMMARY | 2025-05-24 12:16 | XMS_ITS | Referral Summary ---
Author Organization [facility] [address] [facility] Address [address] [facility] [address] Care Team Providers Care Client Technologies Analyst Name Role Phone Edinson Hicks MD Primary Care Provider + Encounters Date Type Department Care Team Description 05/16/2025 Orders Only [facility] Health Information Management [address] [place] [address] Scanning, Provider 04/30/2025 Orders Only [facility] Health Information Management [address] [place] [address] Scanning, Provider from Last 3 Months Allergies Active Allergy Reactions Criticality Noted Date Comments Dextromethorphan-Bupropion Dizziness Low 3 Midodrine Headache Low 11/09/2020 nausea Sertraline Other (See comments) Low 11/09/2020 drowsy Medications metoprolol XL (TOPROL-XL) 25 mg extended release tabletIndication s:Tachycardia Take 1 tablet (25 mg total) by mouth daily 90 tablet 3 Active Additional Information Patient taking differently: 12.5 mgoral Daily, Informant: Self, Reported on 04/06/2024 predniSONE (DELTASONE) 10 mg tabletIndication s:Non-recurrent acute [...] CDT): Doing well. One year . Seeing milanese knitting machine operator for Pap. CMP was normal 6 [...] management. Assessment & Plan (11/09/2020 10:15 AM LIVING MANAGER): Highly suspicious for gluten intolerance. I advised [...] that. Assessment & Plan (10/16/2021 9:49 AM LIVING MANAGER): Having some breakthrough with Paxil. Will start Buspirone 7.5 mg twice a day. Assessment & Plan (11/27/2020 3:11 PM LIVING MANAGER): Start on Paxil 10 mg two weeks ago. Due to worsening depression I am increasing it to 20 mg a day. Reassess in 4 weeks. Assessment & Plan (11/09/2020 10:23 AM LIVING MANAGER): Couldn't tolerate zoloft, will change to paxil Assessment & Plan (09/29/2019 7:47 AM LIVING MANAGER): Uncontrolled. Will increase sertraline to 150 mg a day Assessment & Plan (05/14/2019 10:43 AM CDT): Not improving, but stable. Cont current treatment. Letter for hot mill roller dog approved. Assessment & Plan (02/23/2019 10:22 [...] that. Assessment & Plan (10/12/2021 6:56 AM LIVING MANAGER): Stable on Paxil Assessment & Plan (11/27/2020 3:21 PM LIVING MANAGER): Worsening. Scored 20 on PHQ-9. I suggested [...] 10/16/2021 Assessment & Plan (10/16/2021 9:38 AM LIVING MANAGER): Highly recommended that she get the COVID-19 vaccine. Tachycardia 10/16/2021 04/06/2024 Assessment & Plan (02/27/2023 11:54 AM CDT): Stable on metoprolol. Assessment & Plan (10/16/2021 10:16 AM LIVING MANAGER): EKG shows normal sinus rhythm. Normal EKG. [...] of breath. Abdominal pain, RLQ 07/03/2021 02/28/20 23 Assessment & Plan (02/27/2023 11:54 AM CDT): [...] was negative for appendicitis 1. Normal appendix. 2. No acute abnormality of the abdomen and pelvis. 3. Mild pelvicaliectasis bilaterally without overt hydronephrosis, [...] 02/14/2021 Assessment & Plan (11/27/2020 3:13 PM LIVING MANAGER): Mild, new onset 7 days ago. Due [...] 11/09/2020 Assessment & Plan (09/29/2019 7:47 AM LIVING MANAGER): Cont albuterol inhaler q 4-6 hours as needed. Will add antibiotic. Neck pain 09/29/2019 02/27/2023 Assessment & Plan (02/27/2023 11:55 AM CDT): resolved Assessment & Plan (09/29/2019 7:50 AM LIVING MANAGER): Naproxen 220 mg 2 tablets 2 times a day with food as needed for inflamation. Also, when neck xray is back and normal can start chiro/massage therapy Orthostatic hypotension 02/23/201903/04 Assessment & Plan (05/14/2019 10:40 AM CDT): Still present. Pt declined treatment with midodrine. I advised her to call back if will develop presyncope or syncope. Assessment & Plan (02/23/2019 10:26 AM CDT): Keep hydrated, if blood pressure will go bellow 90/50 come back to consider treatment with midodrine. Dysmenorrhea 12/29/2017 02/27/2023 Closed fracture of distal end of radius 03/29/2015 09/29/2019 Immunizations Immunization Administration Dates Next Due Hep B, Adolescent [...] on file Legal Sex Female 9:36 PM LIVING MANAGER Gender Identity Female 09/04/2021 9:58 AM CDT Sexual Orientation Straight 09/04/2021 9: 58 AM CDT Last Filed Vital Signs Vital Sign Reading Time Taken Comments Blood Pressure 110/60 04/06/2024 11:10 AM CDT Pulse 68 04/06/2024 11:10 AM CDT Temperature 36.7 C (98 F) 04/06/2024 11:10 AM CDT Respiratory Rate 16 04/06/2024 11:10 AM CDT Oxygen Saturation 97% 04/06/2024 11:10 AM CDT Inhaled Oxygen Concentration - - Weight 75.4 kg (166 lb 4.8 oz) 04/06/2024 11:10 AM CDT Height 163.8 cm (5' 4.5) 04/06/2024 11:10 AM CD T Body Mass Index 28.1 04/06/2024 11:10 AM CDT Plan of Treatment Not on file Procedures Procedure Name Priority Date/Time Associated Diagnosis Comments SCAN - LABS 05/16/2025 SCAN - LABS 04/30/2025 from Last 3 Months Results * SCAN - LABS (05/16/2025) us Provider Scanning Final Result * SCAN - LABS (04/30/2025) Provider Scanning Final Result from Last 3 Months Insurance sougou OPEN ACCESS sougou OPEN ACCESS Care Teams Client Technologies Analyst Relationship Specialty Start Date End Date Edinson Hicks MD [address] [place] [address] PCP - General Internal Medicine 04/02/24
--- OUTSIDE RECORDS SUMMARY | 2025-05-24 12:16 | XMS_ITS | Encounter Summary ---
Author Organization [facility] Address [address] [place] [address] Care Team Providers Care Inside Sales Specialist Name Role Phone Unavailable Primary Care Provider Unavailabl e Encounter Details Date Type Department Care Team (Latest Contact Info) Description 12/01/2023 MyChart Message Enc [facility] Multispecialty Care - [place] [address] [address] [address] [place] [address] Adelaide Adler MD [address] [facility] [address] [place] [address] Medication Request Social History Tobacco Use Types [...] Noted Time PHQ-9 Depression Total Score: 10 10/22/2 023 1:49 PM REACH LIFT TRUCK DRIVER documented as of this encounter
--- OUTSIDE RECORDS SUMMARY | 2025-05-24 12:16 | XMS_ITS | Clinical Summary ---
Author Organization [facility] 130 [facility] Address [address] [facility] [place] [address] Care Team Providers Care Research Environmental Engineer Name Role Phone Edinson Hicks MD Primary [...] CDT): Doing well. One year . Seeing straightener gun parts for Pap. CMP was normal 6 months [...] management. Assessment & Plan (11/09/2020 10:15 AM HOSE WRAPPER): Highly suspicious for gluten intolerance. I advised [...] that. Assessment & Plan (10/16/2021 9:49 AM HOSE WRAPPER): Having some breakthrough with Paxil. Will start Buspirone 7.5 mg twice a day. Assessment & Plan (11/27/2020 3:11 PM HOSE WRAPPER): Start on Paxil 10 mg two weeks ago. Due to worsening depression I am increasing it to 20 mg a day. Reassess in 4 weeks. Assessment & Plan (11/09/2020 10:23 AM HOSE WRAPPER): Couldn't tolerate zoloft, will change to paxil Assessment & Plan (09/29/2019 7:47 AM HOSE WRAPPER): Uncontrolled. Will increase sertraline to 150 mg a day Assessment & Plan (05/14/2019 10:43 AM CDT): Not improving, but stable. Cont current treatment. Letter for director digital communications dog approved. Assessment & Plan (02/23/2019 10:22 [...] that. Assessment & Plan (10/12/2021 6:56 AM HOSE WRAPPER): Stable on Paxil Assessment & Plan (11/27/2020 3:21 PM HOSE WRAPPER): Worsening. Scored 20 on PHQ-9. I suggested [...] 10/16/2021 Assessment & Plan (10/16/2021 9:38 AM HOSE WRAPPER): Highly recommended that she get the COVID-19 vaccine. Tachycardia 10/16/2021 04/06/2024 Assessment & Plan (02/27/2023 11:54 AM CDT): Stable on metoprolol. Assessment & Plan (10/16/2021 10:16 AM HOSE WRAPPER): EKG shows normal sinus rhythm. Normal EKG. [...] 02/14/2021 Assessment & Plan (11/27/2020 3:13 PM HOSE WRAPPER): Mild, new onset 7 days ago. Due [...] 11/09/2020 Assessment & Plan (09/29/2019 7:47 AM HOSE WRAPPER): Cont albuterol inhaler q 4-6 hours as needed. Will add antibiotic. Neck pain 09/29/2019 02/27/2023 Assessment & Plan (02/27/2023 11:55 AM CDT): resolved Assessment & Plan (09/29/2019 7:50 AM HOSE WRAPPER): Naproxen 220 mg 2 tablets 2 times a day with food as needed for inflamation. Also, when neck xray is back and normal can start chiro/massage therapy Orthostatic hypotension 02/23/[address] 04/2022 Assessment & Plan (05/14/2019 10:40 AM CDT): Still present. Pt declined treatment with midodrine. I advised her to call back if will develop presyncope or syncope. Assessment & Plan (02/23/2019 10:26 AM CDT): Keep hydrated, if blood pressure will go bellow 90/50 come back to consider treatment with midodrine. Dysmenorrhea 12/29/2017 02/27/2023 Closed fracture of distal end of radius 03/29/2015 09/29/2019 Encounters Date Type Department Care Team Description 05/16/2025 Orders Only [facility] Health Information Management [address] [place] [address] Scanning, Provider 04/30/2025 Orders Only [facility] Health Information Management [address] [place] [address] Scanning, Provider from Last 3 Months Immunizations Immunization Administration Dates Next Due Hep [...] on file Legal Sex Female 9:36 PM HOSE WRAPPER Gender Identity Female 09/04/2021 9:58 AM CDT [...] HPV Vaccines (1 - 3-dose series) 2014 Depression Screening 04/06/2025 04/06/2024, 02/27/2023, 02/27/2023, Additional history exists Regular Well Visit/Exam 18-64 04/06/2025 04/06/2024, 02/27/2023, 05/14/2021, Additional history exists Influenza Vaccine (#1) 2025 08/25/2020 DTaP/Tdap/Td Vaccine (3 - Td or Tdap) 01/23/2033 01/23/2023, 08/25/2014 Hepatitis B Screening Completed 05/09/2000 , 1999, 1999 Varicella Vaccines Completed 06/29/2014, 08/05/2000 Pneumococcal vaccine <65 Aged Out No longer eligible based on patient's age to complete this topic Procedures Procedure Name Priority Date/Time Associated Diagnosis Comments SCAN - LABS 05/16/2025 SCAN - LABS 04/30/2025 from Last 3 Months Results * SCAN - LABS (05/16/2025) us Provider Scanning Final Result * SCAN - LABS (04/30/2025) us Provider Scanning Final Result from Last 3 Months Insurance [employer] OPEN ACCESS [employer] OPEN ACCESS Care Teams Research Environmental Engineer Relationship Specialty Start Date End Date Edinson Hicks MD [address] [place] [address] PCP - General Internal Medicine 04/02/24
--- OUTSIDE RECORDS SUMMARY | 2025-05-24 12:16 | XMS_ITS | Clinical Summary ---
Author Organization [facility] Address [facility] [place] [address] Care Team Providers Care Supervisor Soldering Name Role Phone Unavailable Primary Care Provider Unavailabl e Allergies Active Allergy Reactions Criticality Noted Date Comments Midodrine Headache Low 11/09/2020 nausea Medications QUEtiapine (SEROQUEL) 25 MG tabletIndication s:ONEIL (generalized anxiety disorder),Mild episode of recurrent major depressive disorder Take 0.5 tablets (12.5 mg total) by [...] s:Mild episode of recurrent major depressive disorder Take 1 tablet (75 mg total) by mouth daily. 90 tablet 4 Active Additional Information Patient not taking.Reported on 11/26/2023 FLUoxetine (PROZAC) 20 MG capsuleIndicatio ns:Mild episode of recurrent major depressive disorder,General ized anxiety disorder TAKE 1 CAPSULE(20 MG) BY [...] doesn't need medical management. Moderate episode of recurrent major depressive d isorder 09/21/2018 Overview (10/22/2023): Last Assessment & Plan: Worsening. Previously was on Seroquel and Paxil and did better. Due to they were changed to bupropion and fluoxetine. Patient is having side effects, unable to tolerate. Will change back to Seroquel and Paxil. Immunizations Immunization Administration Dates Next Due Hepatitis B Pediatric 05/09/2000,1999,08/04 Influenza Adult (Generic) 08/25/2020 MMR (MMRII) 04/23/2005,10/29/2000 Tdap (Generic) 01/23/2023,08/25/2014 Varicella (Varivax) 06/29/2014,08/05/2000 Family History Medical History Relation Comments Diabetes Father Hypertension Father Relation Status Comments Father Social History Tobacco Use Types Packs/Day Years Used Date Smoking Tobacco: Never Passive Smoke Exposure: Never Smokeless Tobacco: Never Tobacco Cessation:Counseling Given: Not Answered Comments:Counseled by Dr. Adler. Alcohol Use Standard Drinks/Week Comments Never 0 [...] Comments Blood Pressure 109/96 11/26/2023 5:29 PM SUPERVISORY EXAMINER Pulse 82 11/26/2023 5:29 PM SUPERVISORY EXAMINER Temperature 36.7 C (98 F) 11/26/2023 5:29 PM SUPERVISORY EXAMINER Respiratory Rate 18 11/26/2023 5:29 PM SUPERVISORY EXAMINER Oxygen Saturation 100% 11/26/2023 5:29 PM SUPERVISORY EXAMINER Inhaled Oxygen Concentration - - Weight 79.4 kg (175 lb) 11/26/2023 5:29 PM SUPERVISORY EXAMINER Height 162.6 cm (5' 4) 11/26/2023 5:29 PM SUPERVISORY EXAMINER Body Mass Index 30.04 11/26/2023 5:29 PM SUPERVISORY EXAMINER Plan of Treatment Health Maintenance Due Date Last Done Comments Cervical Cancer Screening Pa p Smear (Age 21 to 29) Every 3 Years 1999 Cervical Cancer Screening 1999 Hepatitis B Vaccines (3 of 3 - 3-dose series) 07/04/2000 05/09/2000, 1999, 1999 HPV Vaccines (1 - 3-dose series) 2014 Hepatitis C 2017 COVID-19 Vaccine (2 - 2023-2 5 season) 2024 07/09/2023 Annual Physical 10/22/2024 10/22/2023 PHQ-2 (Phys[facility] [place]) 11/03/2024 11/26/2023 DTaP, Tdap and Td Vaccines ( 3 - Td or Tdap) 01/23/2033 01/23/2023, 08/25/2014 Meningococcal B Vaccine Aged Out No l onger eligible based on patient's age to complete this topic Meningococcal Vaccine Aged Out No florin rosalva eligible based on patient's age to complete this topic Pneumococcal Vaccine: Pediatrics (0 to 5 Years) and At-Risk Patients (6 to 49 Years) Aged Out No longer eligible b ased on patient's age to complete this topic RSV Immunizations Under 20 Months Aged Out No longer eligible b ased on patient's age to complete this topic Insurance
--- OUTSIDE RECORDS SUMMARY | 2025-05-24 12:16 | XMS_ITS | Clinical Summary ---
Author Organization [facility] Address [address] [place] [address] Care Team Providers Care Probation And Patrol Agent Name Role Phone Edinson Hicks MD Primary [...] Comments Blood Pressure 110/76 10/13/2020 2:48 PM GRINDER Pulse 93 10/13/2020 2:48 PM GRINDER Temperature 36.9 C (98.4 F) 10/13/2020 2:48 PM GRINDER Respiratory Rate 18 10/13/2020 2:48 PM GRINDER Oxygen Saturation 96% 10/13/2020 2:48 PM GRINDER Inhaled Oxygen Concentration - - Weight 53.8 kg (118 lb 11.2 oz) 10/13/2020 2:48 PM GRINDER Height 165.1 cm (5' 5) 10/13/2020 2:48 PM GRINDER Body Mass Index 19.75 10/13/2020 2:48 PM GRINDER Plan of Treatment Health Maintenance Due Date Last Done Comments Hepatitis C Virus (HCV) Screening 1999 TdaP Immunization 1999 Human Papillomavirus (HPV) Immunization (1 - 3-dose series) 2014 Hepatitis B Immunization (1 of 3 - 19+ 3-dose series) 2018 SARS-COV-2 Immunization ( - 2023- season) 2024 Influenza Immunization (#1) 2025 Respiratory Syncytial Virus (RSV) Immunization (Adult) (1 - 1-dose 75+ series) 2074 Meningococcal Immunization (ACWY) Aged Out No longer eligible based on patient's age to complete this topic Pneumococcal Immunization Combined Aged Out No longer eligible based on patient's age to complete this topic Rotavirus Immunization Aged Out No lo nger eligible based on patient's age to complete this topic Care Teams Probation And Patrol Agent Relationship Specialty Start Date End Date Edinson Hicks MD [address] [place] [address] PCP - General Internal Medicine 05/17/20
--- NOTE | 2025-05-24 12:17 | ECG_ITS ---
Test Date: 2025-05-24 12:34:04 Measurements Intervals [place] Rate: 96 P: 13 LA: 130 QRS: 22 QRSD: 81 T: -3 QT: 322 QTc: 409 Interpretive Statements SINUS RHYTHM No previous ECG available for comparison Electronically Signed On 05-24-2025 17:05:21 CDT by Ivonne Pulido M.D.
--- NOTE | 2025-05-24 12:48 | OBADM ---
This patient, Codi Keller, admitted to the OB room Labor/Delivery/Recovery 119 for observation. Patient/family oriented to hospital policies and general routines including ID bracelet, bed and alarms, visiting hours, pain management, procedures, bathroom and other care routines, personal items, smoking policy, room service/diet, and visiting hours. Patient/Family are encouraged to report perceived risks to care and to ask questions if they do not understand what they are told or what they should do.
[2025-05-24 12:59] LABS: Add Urine Microscopic? YES; Appearance Urine Clear (Clear); Glucose Urine UA Negative (Negative); Leukocyte Esterase Ur Trace LEU/UL (Negative); Nitrate Urine Negative (Negative); Non Pathogenic Casts 0-2; Specific Grav Ur 1.015 (1.001-1.035)
[2025-05-24 13:14] LABS: Alanine Aminotransferase 13 U/L (6-35); Albumin Level 3.8 g/dL (3.5-5.1); Alkaline Phosphatase 195 U/L (38-126); Anion Gap 8 mmol/L (4-12); Aspartate Amino Transferase 25 U/L (14-36); Bilirubin,Total 0.4 mg/dL (0.2-1.3); Blood Urea Nitrogen 6 mg/dL (7-17); Calcium 9.5 mg/dL (8.4-10.2); Carbon Dioxide 23 mmol/L (22-30); Chloride 106 mmol/L (98-107); Estimated Glomerular Filt Rate > 60; Glucose 85 mg/dL (65-110); Potassium 4.8 mmol/L (3.4-5.0); Sodium 137 mmol/L (137-145); Total Protein 7.5 g/dL (6.3-8.2)
[2025-05-24 14:02] LABS: Fetal Fibronectin Negative
--- NOTE | 2025-06-06 16:28 | P.PNOB_ITS ---
OB - Triage/Final Diagnosis Visit Information Comments/Additional reasons for admission: I have assessed the risk for this patient, Codi Keller, and determined that she would benefit from observation care. Evaluation Laboratory results: Laboratory Tests 05/24/25 05/24/25 12:29 13:27 Sodium 137 Potassium 4.8 Chloride 106 Carbon Dioxide 23 Anion Gap 8 BUN 6 L Creatinine 0.70 Estim Creat Clear Calc Not Reportable Estimated GFR > 60 Glucose 85 Calcium 9.5 Total Bilirubin 0.4 AST 25 ALT 13 Alkaline Phosphatase 195 H Total Protein 7.5 Albumin 3.8 Urine Color Yellow Urine Appearance Clear Urine pH 7.5 Ur Specific [place] 1.015 Urine Protein Trace Urine Glucose (UA) Negative Urine Ketones Negative Ur Blood (Man) Negative Urine Nitrate Negative Urine Bilirubin Negative Urine Urobilinogen 1.0 Leukocyte Esterase Rfl Trace H Urine RBC 0-2 Urine WBC 0-5 Ur Squamous Epith Cells None seen Urine Bacteria None seen Urine Casts 0-2 Fibronectin Negative Final Diagnosis (1) contractions: Code(s): O47.00 - False labor before 37 completed weeks of gestation, unspecified trimester Status: Acute
== END 2025-05-24 18:52 | disposition home or self-care (01) ==
PROVIDERS: Admitting Provider Obstetrics & Gynecology; PCP Internal Medicine; Visit Provider Obstetrics & Gynecology
DX: O99.891 Other specified diseases and conditions complicating pregnancy (principal); B08.3 Erythema infectiosum [fifth disease]; R42 Dizziness and giddiness; Z3A.33 33 weeks gestation of pregnancy
CPT/HCPCS: 36415; 76819; 80053; 81001; 82731; 93005; A9270; G0378; G0379

== ENCOUNTER 2025-06-22 09:58 | Outpatient (RCR) | payer OTHER, SELFPAY ==
[2025-04-30 15:13] LABS: Hematocrit 29.9 % (37.0-47.0); Hemoglobin 9.5 g/dL (12.0-15.0); Mean Corpuscular HGB Conc 31.8 g/dl (32-36); Mean Corpuscular Hemoglobin 28.0 pg (26-34); Mean Corpuscular Volume 88.2 fl (80-100); Platelet Count Result 202 k/mm3 (150-375); Red Blood Count 3.39 M/mm3 (4.2-5.4); White Blood Count 9.6 K/mm3 (4.5-10.0)
[2025-04-30 15:23] LABS: Alanine Aminotransferase 36 U/L (6-35); Albumin Level 3.6 g/dL (3.5-5.1); Alkaline Phosphatase 185 U/L (38-126); Anion Gap 9 mmol/L (4-12); Aspartate Amino Transferase 28 U/L (14-36); Bilirubin,Total 0.4 mg/dL (0.2-1.3); Blood Urea Nitrogen 5 mg/dL (7-17); Calcium 9.2 mg/dL (8.4-10.2); Carbon Dioxide 21 mmol/L (22-30); Chloride 109 mmol/L (98-107); Estimated Glomerular Filt Rate > 60; Glucose 102 mg/dL (65-110); Potassium 3.5 mmol/L (3.4-5.0); Sodium 139 mmol/L (137-145); Total Protein 7.3 g/dL (6.3-8.2)
[2025-04-30 15:52] VITALS: BP 86/69; PULSE 117
--- NOTE | 2025-04-30 15:57 | PC.NURSE ---
[address] Anderson to report CMP and CBC results. Reported FHTs and NST as well as patient symptoms and concerns with change in movement. Orders recieved to discharge patient home.
[2025-05-16 10:38] VITALS: BP 101/61; PULSE 113
[2025-05-16 12:22] LABS: Hematocrit 30.0 % (37.0-47.0); Hemoglobin 9.4 g/dL (12.0-15.0); Immature Granulocyte Percent A 0.4 % (0-0.5); Lymphocytes Absolute Auto 1.87 K/mm3 (0.9-3.2); Mean Corpuscular HGB Conc 31.3 g/dl (32-36); Mean Corpuscular Hemoglobin 27.3 pg (26-34); Mean Corpuscular Volume 87.2 fl (80-100); Nucleated Red Blood Cells Absolute Auto 0.000 K/mm3 (0.0-0.012); Nucleated Red Blood Cells Perc 0.0 % (0.0-0.2); Platelet Count Result 175 k/mm3 (150-375); Red Blood Count 3.44 M/mm3 (4.2-5.4); White Blood Count 7.6 K/mm3 (4.5-10.0)
[2025-05-19 13:08] LABS: Parvovirus B19, IgG 4.3 index (0.0-0.8); Parvovirus B19, IgM 4.1 index (0.0-0.8)
[2025-06-02 10:39] VITALS: BP 114/70; PULSE 122
[2025-06-08 11:20] VITALS: BP 99/64; PULSE 97
--- NOTE | 2025-06-08 15:15 | PC.NURSE ---
Dr. Roa informed Baby's growth in the 33rd percentile.
[2025-06-15 11:07] VITALS: BP 112/76; PULSE 104
--- NOTE | ~2025-06-22 | US_ITS ---
EXAMINATION: US OB follow up w BPP DATE: 05/16/2025 11:43 INDICATION: Peripheral margins infection during third trimester . Assess amniotic fluid inde x, weight and biophysical profile. TECHNIQUE: Real-time pelvic ultrasound was performed. The interpreting radiologist was not present fo r the study. COMPARISON: None. FINDINGS: There is a single living fetus in vertex presentation. The placenta is posterior and not low-lying. heart rate is 139 beats per minute (bpm). Normal amniotic fluid index of 12.4 cm (5th%-95%: 8.6 -24.2 cm at 32 weeks estimated gestational age). The following biometric data were obtained: BPD: 8.3 cm -> 33 weeks 1 days Head circumference: 29.8 cm -> 32 weeks 6 days Abdominal circumference: 28.6 cm -> 32 weeks 4 days Femur length: 6.0 cm -> 31 weeks 3 days These measurements are concordant. Head circumference to abdominal circumference ratio: 1.04 (normal range 0.96-1.12). Estimated weight: 1946 g (+/-) 292 g, 4 lbs 5 oz (+/-) 10 oz Biophysical profile performed by the technologist: breathing (30 sec sustained breathing in 30 minutes): 2 out of 2 movement (3 gross body movements in 30 minutes: 2 out of 2 tone (one episode of cptmacr-sgqrgoazy-ottapkg limb movement): 2 out of 2 Amniotic fluid pocket (2 cm): 2 out of 2 Total score: 8 out of 8 IMPRESSION: 1. Single living fetus in vertex presentation with heart rate of 139 bpm. 2. Normal amniotic fluid index of 12.4 cm. 3. Biophysical profile 8 out of 8. 4. Estimated weight is 44th percentile by Hadlock criteria when 07/10/2025 is used as the estima charan date of delivery (ANGELIC). Please correlate with clinical information or earlier ultrasounds for mos t accurate ANGELIC. Reviewed, dictated and finalized at location A. IMPRESSION: 1. Single living fetus in vertex presentation with heart rate of 139 bpm . 2. Normal amniotic fluid index of 12.4 cm. 3. Biophysical profile 8 out of 8. 4. Estimated weight is 44th percentile by Hadlock criteria when 07/10/2025 is used as the estimated date of delivery (ANGELIC). Please correlate with clinica l information or earlier ultrasounds for most accurate ANGELIC.
--- NOTE | ~2025-06-22 | US_ITS ---
EXAMINATION: US OB follow up w BPP DATE: 06/08/2025 11:30 INDICATION: Parvo virus. Evaluate estimated weight and SERG. TECHNIQUE: Real-time ultrasound of the pelvis was performed. The interpreting radiologist was not pre sent for the study. COMPARISON: None. FINDINGS: There is a single living fetus in vertex presentation. The placenta is posterior. cardiac acti vity and movement are noted. heart rate is 123 beats per minute (bpm). The amniotic fluid index is 14.1 cm, which is normal. The following biometric data were obtained: BPD: 8.7 cm corresponds to gestational age 35 weeks 2 day(s). Head circumference: 31.5 cm corresponds to gestational age 35 weeks 3 day(s). Abdominal circumference: 31.2 cm corresponds to gestational age 35 weeks 1 day(s). Femur length: 66 cm corresponds to gestational age 34 weeks 1 day(s). Head circumference to abdominal circumference ratio: 1.01 (mean 0.93-1.11). Estimated weight: 2539 g plus or minus 381 g, 33%. Biophysical profile performed by the technologist: breathing (30 sec sustained breathing in 30 minutes): 2 out of 2 movement (3 gross body movements in 30 minutes: 2 out of 2 tone (one episode of wjrqgix-wglqjlaso-tbicpfv limb movement): 2 out of 2 Amniotic fluid pocket (2 cm): 2 out of 2 Total score: 8 out of 8 IMPRESSION: 1. Single living fetus in vertex presentation with heart rate of 123 bpm. 2. Normal placenta. 3. Biophysical profile 8/8 out of 8. 4. Gestational age by ultrasound of 35 weeks 3 day(s) with ultrasound estimated date of delivery (ANGELIC ) of 07/10/2025. Appropriate interval growth. 5. Estimated weight is 33th percentile by Hadlock criteria when 07/10/2025 is used as the estim ated date of delivery (ANGELIC). Please correlate with clinical information or earlier ultrasounds for mo st accurate ANGELIC. 6: Normal SERG measures 14.1 cm. Reviewed, dictated and finalized at location A. IMPRESSION: 1. Single living fetus in vertex presentation with heart rate of 123 bpm. 2. Normal placenta. 3. Biophysical profile 06/10 out of . 4. Gestational age by ultrasound of 35 weeks 3 day(s) with ultrasound estimated date of delivery (ANGELIC) of 07/10/2025. Appropriate interval growth. 5. Estimated weight is 33th percentile by Hadlock criteria when 5 is used as the estimated date of delivery (ANGELIC). Please correlate with clinic al information or earlier ultrasounds for most accurate ANGELIC. 6: Normal SERG measures 14.1 cm.
--- NOTE | ~2025-06-22 | US_ITS ---
EXAMINATION: US OB BPP wo non-stress DATE: 06/02/2025 11:58 CDT INDICATION: History of parvovirus in TECHNIQUE: Real-time transabdominal obstetric ultrasound. FINDINGS: There is a single intrauterine gestation in vertex presentation. The placenta is located within the posterior fundus without placenta previa. cardiac activity and movement is noted with a heart rate of 150 beats per minute. Biophysical profile: breathin of 2 movement: 2 of 2 tone: 2 of 2 Amniotic fluid pocket: 2 of 2 Total score: 8 of 8 Amniotic fluid index measures 12.3 cm, within normal limits. IMPRESSION: 1. Single intrauterine gestation in vertex presentation. 2: Total biophysical profile score of 8 out of 8. Reviewed, dictated and finalized at location A.
[2025-06-22 10:38] VITALS: BP 101/66; PULSE 92
== END 2025-06-30 13:37 | disposition other institution (70) ==
LOC: ANHOBOP 09:58
PROVIDERS: Obstetrics & Gynecology Gynecology; PCP Internal Medicine; Visit Provider Obstetrics & Gynecology
DX: O36.8190 Decreased fetal movements, unspecified trimester, not applicable or unspecified (principal); Z3A.29 29 weeks gestation of pregnancy; O98.513 Other viral diseases complicating pregnancy, third trimester; B34.3 Parvovirus infection, unspecified; Z3A.32 32 weeks gestation of pregnancy; Z3A.34 34 weeks gestation of pregnancy; Z3A.35 35 weeks gestation of pregnancy; Z3A.36 36 weeks gestation of pregnancy; Z3A.37 37 weeks gestation of pregnancy
CPT/HCPCS: 36415; 59025; 76816; 76819; 80053; 85025; 85027; 86747

== ENCOUNTER 2025-06-25 14:24 | Outpatient (CLI) | payer OTHER, SELFPAY ==
[2025-06-25 14:44] VITALS: BP 118/82; PULSE 124
[2025-06-25 14:59] VITALS: BP 111/75; PULSE 140
[2025-06-25 15:14] VITALS: BP 112/76; PULSE 133
[2025-06-25 15:29] VITALS: BP 118/73; PULSE 133
[2025-06-25 15:29] LABS: OBXCEM ROM Plus Negative (Negative)
== END 2025-06-25 15:52 | disposition home or self-care (01) ==
LOC: ANHOBOP 14:31 → ANHLDR 14:31
PROVIDERS: Obstetrics & Gynecology; PCP Internal Medicine; Visit Provider Obstetrics & Gynecology
DX: O42.90 Premature rupture of membranes, unspecified as to length of time between rupture and onset of labor, unspecified weeks of gestation (principal); Z3A.00 Weeks of gestation of pregnancy not specified
CPT/HCPCS: 59025; 84112; 99199

== ENCOUNTER 2025-06-27 10:49 | Inpatient (IN) | payer OTHER, SELFPAY ==
[2025-06-27] VITALS (78 sets, daily range): BP systolic 90–126; BP diastolic 24–87; PULSE 64–134; RESP 18; TEMP 36.7–37.2; O2SAT 94–100; BMI 30.6
--- OUTSIDE RECORDS SUMMARY | 2025-06-27 11:41 | XMS_ITS | Encounter Summary ---
Author Organization [facility] Facility Care Team Providers Care Audio Tape Librarian Name Role Phone Edinson Hicks MD Primary Care Provider + Edinson Hicks MD Primary Care Provider + Encounter Details Date Type Department Care Team (Latest Contact Info) Description 11/09/2018 Orders Only [facility] CLINCON[facility] ProviderGladis MD [address] [place] [id number] Social History Tobacco Use Types Packs/Day Years Used Date Smoking Tobacco: Never Comments Unknown Sex and Gender Information Value Date Recorded Sex Assigned at Not on file Legal Sex Female 9:36 PM COLD MILL INSPECTOR Gender Identity Female 09/04/2021 9:58 AM CDT Sexual Orientation Straight 09/04/2021 9: 58 AM CDT documented as of this encounter Plan of Treatment Not on file documented as of this encounter Procedures Procedure Name Priority Date/Time Associated Diagnosis Comments COLONOSCOPY - SCAN 11/09/2018 12 :00 AM COLD MILL INSPECTOR documented in this encounter Results * COLONOSCOPY - SCAN (11/09/2018 12:00 AM COLD MILL INSPECTOR) Narrative 11/09/2018 12:00 AM COLD MILL INSPECTOR Ordered by an unspecified provider. Historical Provider Final Res ult documented in this encounter Visit Diagnoses Not on filedocumented in this encounter Additional Health Concerns Infection Onset Date Last Indicated Resolved Time COVID: Suspected 09/04/2021 09/04/2021 09/18/2021 3:05 AM COLD MILL INSPECTOR documented as of this encounter Care Teams Audio Tape Librarian Relationship Specialty Start Date End Date Edinson Hicks MD [address] [place] [address] PCP - General Internal Medicine 02/15/19 10/22/23 Edinson Hicks MD [address] [place] [address] PCP - General Internal Medicine 04/02/24 documented as of this encounter
--- OUTSIDE RECORDS SUMMARY | 2025-06-27 11:41 | XMS_ITS | Clinical Summary ---
Author Organization [facility] Address [address] [place] [address] Care Team Providers Care Family And Consumer Education Teacher Name Role Phone Unavailable Primary Care Provider Unavailabl e Source Comments [facility],non-owned Affiliates and Associated Physician Practices is amultiple site organization consisting of ambulatory clinics and hospital sitesin [place], [place], [place] and [place]. This disclosure is being madepursuant to the Care Everywhere program and may not contain all information available regarding this patient. Last updated 18.[facility] Allergies Active Allergy Reactions Criticality Noted Date Comments Latex Rash Medium 06/13/2025 Midodrine Rash Medium 06/13/2025 Skin Adhesives Urticaria Medium 06/13/2025 Encounters Date Type Department Care Team Description 06/17/2025 1:00 PM CDT - 06/17/2025 11:59 PM CDT Hospital Encounter [facility] Women's Health Maternal & Care [address] [place], [place] [id number] Adolph Valdes DO BATCH MIXING TRUCK DRIVER Discharge Disposition: Home or Self Care from Last 3 Months Social History Tobacco Use Types Packs/Day Years Used Date Smoking Tobacco: Never Assessed Estimated Date of Delivery Comme nts Yes 07/13/2025 Based on Ultraso und Sex and Gender Information Value Date Recorded Sex Assigned at Not on file Legal Sex Female 8:04 AM CDT Gender Identity Not on file Sexual Orientation Not on file Plan of Treatment Health Maintenance Due Date Last Done Comments HIV SCREENING 2014 HPV VACCINE (1 - 3-dose series) 2014 CHLAMYDIA/GONORRHEA SCREENING 2015 HEPATITIS C SCREENING 07/29/2017 DTAP/TDAP/TD VACCINES (1 - Tdap) 2018 HEPATITIS B VACCINE (1 of 3 - 19+ 3-dose series) 2018 PAP SMEAR 2020 COVID-19 VACCINE (2 - 2023-2 5 season) 2024 07/09/2023 DEPRESSION SCREENING 11/03/2024 OB-ONE HOUR GLUCOSE 04/06/2025 OB-TDAP CURRENT 04/13/20252022, 08/25/2014 OB-RHOGAM INJECTION 04/20/2025 OB-GROUP B STREP SCREEN 06/08/2025 INFLUENZA VACCINE (#1) 2025 08/25/2020 ZOSTER VACCINE (1 of 2) 2049 HIB VACCINE Aged Out No longer eligi ble based on patient's age to complete this topic MENINGOCOCCAL (Group B) VACCINE SHARED DECISION-MAKING Aged Out No longer eligible based on patient's age to complete this topic MENINGOCOCCAL GROUPS A/C/Y/W VACCINE Aged Out No longer eligible b ased on patient's age to complete this topic PNEUMOCOCCAL VACCINE Aged Out No long er eligible based on patient's age to complete this topic Respiratory Syncytial Virus (RSV) Vaccine Pt: or over 60 yrs (No Doses Required) Completed Procedures Procedure Name Priority Date/Time Associated Diagnosis Comments SONOGRAM - COMPLETE Routine 06/17/2025 1:03 PM CDT Parvovirus complicating in third trimester, antepartum (HCC) Encounter for ultrasound ([facility]) from Last 3 Months Results * Sonogram - Complete (06/17/2025 1:03 PM CDT) Linked Results Indication ======== Parvovirus complicating Patient had 5th Disease 6-8 wks ago History ====== OB History 2. Para 1 Lab Tests Test Date Result NIPT Low risk, Female Maternal Assessment Physical Exam Height 163 cm, 5 ft 4 in. Weight 80 kg, 177 lb. Initial weight 72 kg, 158 lb. BMI 30.38 kg/m . Initial BMI 27.12 kg/m . Weight gain 9 kg, 19 lb Method ====== Transabdominal ultrasound. View: Suboptimal view: limited by late gestational age ========= Marion . Number of fetuses: 1 Dating ====== Date Details Gest. age ANGELIC LMP 10/03/2024 36 w + 5 d 07/10/2025 U/S 06/17/2025 based upon AC, BPD, Femur, HC 36 w + 5 d 07/10/2025 Assigned dating based on the LMP, selected on 06/17/2025 36 w + 5 d 07/10/2025 General Evaluation Cardiac activity present. FHR 135 bpm. Presentation: cephalic Placenta: Placental site: posterior no previa Umbilical cord: Cord vessels: 3 vessel cord. Insertion site: suboptimal Amniotic fluid: Amount of AF: normal. MVP 5.4 cm. SERG 16.6 cm. Q1 3.7 cm, Q2 5.4 cm, Q3 3.7 cm, Q4 3.8 cm Biometry BPD 89.5 mm 36w 2d 49% Hadlock HC 324.7 mm 36w 5d 24% Hadlock AC 332.4 mm 37w 1d 74% Hadlock Femur 71.3 mm 36w 4d 43% Hadlock Humerus 61.1 mm 35w 2d 41% Betina HC / AC 0.98 -/- Hadlock Weight Calculation: EFW 3,048 g 58% Hadlock EFW (lb,oz) 6 lb 12 oz EFW by Hadlock ([id number]-WA-BY-FL) appropriate Growth Overview Exam date GA BPD (mm) HC (mm) AC (mm) FL (mm) HL (mm) EFW (g) 06/17/2025 36w 5d 89.5 49% 324.7 24% 332.4 74% 71.3 43% 61.1 41% 3048 58% Anatomy The following structures appear normal: Head / Neck Cranium. Thalami. Heart / Thorax 3-vessel view. 2-siwkte-cnajghv view. Situs. Aortic arch view. Diaphragm. Abdomen Stomach. Kidneys. Bladder. Spine Cervical spine. Thoracic spine. Lumbar spine. Sacral spine. Extremities / Skeleton Left arm. Left leg. The following structures could not be adequately visualized: Head / Neck Lateral ventricles. Choroid plexus. Midline falx. Cavum septi pellucidi. Cerebellum. Cisterna magna. Face Lips. Profile. Nose. Nasal bone. Orbits. Heart / Thorax 4-chamber view. RVOT view. LVOT view. Bicaval view. Ductal arch view. Great vessels. Right lung. Left lung. Abdomen Cord insertion. Bowel. Genitals. Extremities / Skeleton Arms. Hands. Right arm. Legs. Feet. Right leg. Biophysical Profile 2: breathing movements 2: Gross body movements 2: tone 2: Amniotic fluid volume 06/10 Biophysical profile score Doppler Mid Cerebral Artery: normal PI 1.57 22% Ebbing PS 65.21 cm/s PS 1.18 MoM Maternal Structures Right Ovary Normal Left Ovary Normal Impression ========= Here today for interval growth ultrasound And MCA Dopplers along with BPP due to the fact that she was exposed to parvovirus 1st week of MayMay 03- with positive titers noted on May 09 IgG and IgM positive therefore this may or may not represent a recent infection but she did have a truncal rash and her child was diagnosed with 5th disease and week earlier and her also had the same symptoms when she did. She is being followed at [facility] and has had repeated ultrasounds and MCA is all normal with testing at [facility] her most recent NST was earlier this week and was reported as reactive as per patient. She had no complaints and reported good movements. Denied any leakage of fluid rupture membranes vaginal bleeding. No contractions. Single live intrauterine at 36w 5d The size is appropriate for the established gestational age. The amniotic fluid volume is normal. Normal appearing posterior placenta. MCA Dopplers: normal, no evidence of anemia. No major malformations were seen within the limitations of ultrasound. but certain structures remains suboptimally visualized due to advanced gestation and positioning. No hydrops. Comment ======== The biometry showing good interval growth in the estimated weight is appropriate for the gestational age. The amniotic fluid is normal there were good movements noted. Although a complete anatomical survey was not performed due to advanced gestation positioning which limited the overall study, no gross abnormalities were noted. However certain structures remains suboptimally visualized due to these limitations. She had an anatomical survey at her primary OB providers site which had shown no gross abnormalities. Will attempt to complete anatomical survey at subsequent visits. The MCA Dopplers are normal and there was no evidence of hydrops no pericardial nor pleural effusions no ascites noted. Parvovirus infection in the 3rd trimester rarely results in hydrops or poor outcome less than 1% risk as compared to the 1st or 2nd trimester however close observation is recommended for at least 8-12 weeks post exposure depending on the gestational age. Also recommend repeating the parvovirus titers for confirmation. At this time there is no need for amniocentesis to confirm via PCR. Patient is aware of the above findings. Follow-up ======== Recommend follow up visit in 1 week for BPP/NST and repeat Doppler studies if MCA Doppler studies are normal at the next visit no evidence of hydrops will discontinue MCA Dopplers there is less likely chance of having anemia and there is also increased false-positive MCA Dopplers at this late gestational age. There is no need to delivery prior to term 39 weeks unless otherwise indicated. Will attempt to complete anatomical survey. Recommend repeating parvovirus titers to confirm recent infection. Labor and preeclampsia precautions along with kick counts. Thank you for allowing us to partake in your patient's care. Coding ====== Diagnoses O98.813, B34.3: Other maternal infectious and parasitic diseases complicating , Parvovirus, unspecified Procedures 90421: US Preg Uterus Detailed 17503: MCA Doppler 78115: Biophysical Profile W NST Powered by Peak PACS Anatomical Region Laterality Modality Other 06/17/2025 1:03 PM CDT us Mau Roa MD [facility] ORDERABLES Edited Result - Final from Last 3 Months Insurance [facility]
--- OUTSIDE RECORDS SUMMARY | 2025-06-27 11:41 | XMS_ITS | Clinical Summary ---
Author Organization [facility] Address [address] [place] [address] Phone Care Team Providers Care Safety Lamp Keeper Name Role Phone Pcp, No Primary Care Provider Unavailabl e Allergies No known active allergies Medications TiZANidine (ZANAFLEX) 4 MG capsule Take one capsule (4 mg total) by mouth 3 (three) times a day for 5 days 15 capsule 08/23/2019 Active albuterol (PROVENTIL HFA;VENTOLIN HFA) 90 mcg/actuation inhaler Inhale two puffs into the lungs every 4 (four) hours as needed for wheezing 1 Inhaler 09/23/2019 Active Social History Tobacco Use Types Packs/Day Years Used Date Smoking Tobacco: Never Smokeless Tobacco: Never Alcohol Use Standard Drinks/Week Comments Never 0 (1 standard drink = 0.6 oz pur e alcohol) AUDIT-C Answer Date Recorded Frequency of Alcohol Consumption Never 08/23/2019 Average Number of Drinks Not on file 019 Frequency of Binge Drinking Not on file 08/04 Comments No Sex and Gender Information Value Date Recorded Sex Assigned at Not on file Legal Sex Female 6:20 PM CDT Gender Identity Not on file Sexual Orientation Not on file Last Filed Vital Signs Vital Sign Reading Time Taken Comments Blood Pressure 128/64 09/23/2019 10:54 AM ONLINE ADVERTISING ANALYST Pulse 81 09/23/2019 10:54 AM ONLINE ADVERTISING ANALYST Temperature 36.8 C (98.2 F) 09/23/2019 10:54 AM ONLINE ADVERTISING ANALYST Respiratory Rate 18 09/23/2019 10:54 AM ONLINE ADVERTISING ANALYST Oxygen Saturation 100% 09/23/2019 10:54 AM ONLINE ADVERTISING ANALYST Inhaled Oxygen Concentration - - Weight 52.2 kg (115 lb) 09/23/2019 10:54 AM ONLINE ADVERTISING ANALYST Height 162.6 cm (5' 4) 09/23/2019 10:54 AM ONLINE ADVERTISING ANALYST Body Mass Index 19.74 09/23/2019 10:54 AM ONLINE ADVERTISING ANALYST Plan of Treatment Health Maintenance Due Date Last Done Comments Annual Depression Screening 2010 HPV Vaccines (1 - 3-dose series) 2014 Annual Physical 2017 Hepatitis C Antibody Screen 2017 DTap/Tdap/Td Vaccines (1 - Tdap) 2018 Cervical Cancer Screening 2020 Flu Vaccine (#1) 07/04/[address] [facility] [id number] Care Teams Safety Lamp Keeper Relationship Specialty Start Date End Date Pcp, No PCP - General 09/23/19
--- OUTSIDE RECORDS SUMMARY | 2025-06-27 11:41 | XMS_ITS | Clinical Summary ---
Author Organization [facility] Address [address] [place] [address] Care Team Providers Care Patented Hogshead Assembler Name Role Phone Edinson Hicks MD Primary [...] Comments Blood Pressure 110/76 10/13/2020 2:48 PM ROUGE SIFTER Pulse 93 10/13/2020 2:48 PM ROUGE SIFTER Temperature 36.9 C (98.4 F) 10/13/2020 2:48 PM ROUGE SIFTER Respiratory Rate 18 10/13/2020 2:48 PM ROUGE SIFTER Oxygen Saturation 96% 10/13/2020 2:48 PM ROUGE SIFTER Inhaled Oxygen Concentration - - Weight 53.8 kg (118 lb 11.2 oz) 10/13/2020 2:48 PM ROUGE SIFTER Height 165.1 cm (5' 5) 10/13/2020 2:48 PM ROUGE SIFTER Body Mass Index 19.75 10/13/2020 2:48 PM ROUGE SIFTER Plan of Treatment Health Maintenance Due Date [...] age to complete this topic Care Teams Patented Hogshead Assembler Relationship Specialty Start Date End Date dEinson Hicks MD [address] [place] [id number] PCP - General Internal Medicine 05/17/20
--- OUTSIDE RECORDS SUMMARY | 2025-06-27 11:41 | XMS_ITS | Clinical Summary ---
Author Organization [facility] [address] [facility] Address [address] [place] [address] Care Team Providers Care Digital Product Manager Name Role Phone Edinson Hicks MD [...] CDT): Doing well. One year . Seeing family preservation officer for Pap. CMP was normal 6 months [...] management. Assessment & Plan (11/09/2020 10:15 AM BIOMASS BOILER OPERATOR): Highly suspicious for gluten intolerance. I advised [...] that. Assessment & Plan (10/16/2021 9:49 AM BIOMASS BOILER OPERATOR): Having some breakthrough with Paxil. Will start Buspirone 7.5 mg twice a day. Assessment & Plan (11/27/2020 3:11 PM BIOMASS BOILER OPERATOR): Start on Paxil 10 mg two weeks ago. Due to worsening depression I am increasing it to 20 mg a day. Reassess in 4 weeks. Assessment & Plan (11/09/2020 10:23 AM BIOMASS BOILER OPERATOR): Couldn't tolerate zoloft, will change to paxil Assessment & Plan (09/29/2019 7:47 AM BIOMASS BOILER OPERATOR): Uncontrolled. Will increase sertraline to 150 mg a day Assessment & Plan (05/14/2019 10:43 AM CDT): Not improving, but stable. Cont current treatment. Letter for unarmed security guard dog approved. Assessment & Plan (02/23/2019 10:22 [...] that. Assessment & Plan (10/12/2021 6:56 AM BIOMASS BOILER OPERATOR): Stable on Paxil Assessment & Plan (11/27/2020 3:21 PM BIOMASS BOILER OPERATOR): Worsening. Scored 20 on PHQ-9. I suggested [...] 10/16/2021 Assessment & Plan (10/16/2021 9:38 AM BIOMASS BOILER OPERATOR): Highly recommended that she get the COVID-19 vaccine. Tachycardia 10/16/2021 04/06/2024 Assessment & Plan (02/27/2023 11:54 AM CDT): Stable on metoprolol. Assessment & Plan (10/16/2021 10:16 AM BIOMASS BOILER OPERATOR): EKG shows normal sinus rhythm. Normal EKG. [...] 02/14/2021 Assessment & Plan (11/27/2020 3:13 PM BIOMASS BOILER OPERATOR): Mild, new onset 7 days ago. Due [...] 11/09/2020 Assessment & Plan (09/29/2019 7:47 AM BIOMASS BOILER OPERATOR): Cont albuterol inhaler q 4-6 hours as needed. Will add antibiotic. Neck pain 09/29/2019 02/27/2023 Assessment & Plan (02/27/2023 11:55 AM CDT): resolved Assessment & Plan (09/29/2019 7:50 AM BIOMASS BOILER OPERATOR): Naproxen 220 mg 2 tablets 2 times [...] Encounters Date Type Department Care Team Description 06/08/2025 Orders Only [facility] [address] [place] [address] Scanning, Provider 06/02/2025 Orders Only [facility] [address] [place] [address] Scanning, Provider 05/24/2025 Orders Only [facility] [address] [place] [address] Scanning, Provider 05/16/2025 Orders Only [facility] [address] [place] [id number] Scanning, Provider 04/30/2025 Orders Only [facility] Information Management [address] [place] [address] Scanning, Provider from Last 3 Months Immunizations [...] on file Legal Sex Female 9:36 PM BIOMASS BOILER OPERATOR Gender Identity Female 09/04/2021 9:58 AM CDT [...] Priority Date/Time Associated Diagnosis Comments SCAN - RADIOLOGY/IMAGING 06/08/2025 SCAN - RADIOLOGY/IMAGING 06/02/2025 SCAN - RADIOLOGY/IMAGING 05/24/2025 SCAN - LABS 05/16/2025 SCAN - LABS 04/30/2025 from Last 3 Months Results * SCAN - RADIOLOGY/IMAGING (06/08/2025) Anatomical Region Laterality Modality Other us Provider Scanning Final Result * SCAN - RADIOLOGY/IMAGING (06/02/2025) Anatomical Region Laterality Modality Other us Provider Scanning Final Result * SCAN - RADIOLOGY/IMAGING (05/24/2025) Anatomical Region Laterality Modality Other us Provider Scanning Final Result * SCAN - LABS (05/16/2025) us Provider Scanning Final Result * SCAN - LABS (04/30/2025) us Provider Scanning Edited Result - Final from Last 3 Months Insurance [employer] OPEN ACCESS [employer] OPEN ACCESS Care Teams Digital Product Manager Relationship Specialty Start Date End Date Edinson Hicks MD [address] [place] [address] PCP - General Internal Medicine 04/02/24
--- OUTSIDE RECORDS SUMMARY | 2025-06-27 11:41 | XMS_ITS | Encounter Summary ---
Author Organization [facility] Healthcare Address [address] [place] [address] Care Team Providers Care Assistant Associate Full Professor Name Role Phone Edinson Hicks MD Primary Care Provider + Encounter Details Date Type Department Care Team (Late st Contact Info) Description 04/30/2025 Orders Only [facility] [place] [facility] Health Information Management [address] [place] [id number] Scanning, Provider Social History Tobacco Use Types [...] on file Legal Sex Female 9:36 PM FLEET DRIVER Gender Identity Female 09/04/2021 9:58 AM CDT Sexual Orientation Straight 09/04/2021 9: 58 AM CDT documented as of this encounter Plan of Treatment Not on file documented as of this encounter Procedures Procedure Name Priority Date/Time Associated Diagnosis Comments SCAN - LABS 04/30/2025 documented in this encounter Results * SCAN - LABS (04/30/2025) us Provider Scanning Edited Result - Final documented in this encounter Visit Diagnoses Not on filedocumented in this encounter Care Teams Assistant Associate Full Professor Relationship Specialty Start Date End Date Edinson Hicks MD [address] [place] [address] PCP - General Internal Medicine 04/02/24 documented as of this encounter
[2025-06-27 12:10] LABS: Hematocrit 29.6 % (37.0-47.0); Hemoglobin 9.0 g/dL (12.0-15.0); Immature Granulocyte Percent A 0.5 % (0-0.5); Lymphocytes Absolute Auto 2.48 K/mm3 (0.9-3.2); Mean Corpuscular HGB Conc 30.4 g/dl (32-36); Mean Corpuscular Hemoglobin 24.4 pg (26-34); Mean Corpuscular Volume 80.2 fl (80-100); Nucleated Red Blood Cells Absolute Auto 0.020 K/mm3 (0.0-0.012); Nucleated Red Blood Cells Perc 0.2 % (0.0-0.2); Platelet Count Result 178 k/mm3 (150-375); Red Blood Count 3.69 M/mm3 (4.2-5.4); White Blood Count 9.5 K/mm3 (4.5-10.0)
[2025-06-27 12:51] LABS: Syphilis IgG/IgM Antibody Non-Reactive (Nonreactive)
[2025-06-27] MEDS: LACTATED RINGERS 1,000 ML 125 ML IV CONT ×2 (12:58→15:05)
[2025-06-27] MEDS: OXYTOCIN 30 UNITS/NS 500 ML 30 UNITS/500 ML BAG IV CONT (12:59)
--- NOTE | 2025-06-27 13:20 | WPDOBADMIT ---
Obstetrics - Admit Note Admission Note: record reviewed. Additions to the history and/or subsequent changes in the physical findings follow. 24 y/o at 38 1/7 weeks here with gush of clear fluid. RomPlus positive. GBS neg. remarkable for maternal fifths disease, with normal testing. AVSS NST reactive TOCO: irregular contractions ABD soft, nontender, gravid, vertex EXT nontender Cervix 3/50/-2. AROM of forebag. IUPC placed. Vertex. A: IUP at term with SROM. P: Augment labor as needed. Anticipate .
--- NOTE | 2025-06-27 15:19 | WPDANESEPPF ---
Anes - Initial Pre Proc Eval Procedure: labor epidural Date/Time: 06/27/25 15:19 Surgeon: Mau Roa MD Pre Op Diagnosis: labor pain Pre Op Diagnosis: leaking Patient Data Age: 24 Gender: F Height: 1.63 m Weight: 81 kg Last Vital Signs Pulse 100 06/27/25 15:18 BP 112/80 06/27/25 15:18 Pulse Ox 100 06/27/25 15:18 O2 Del Method Room Air 06/27/25 13:23 Allergies Allergy/AdvReac Type Severity Reaction Status Date / Time adhesive Allergy Hives Verified 06/21/25 13:31 Latex, Natural Rubber AdvReac Mild Rash Verified 06/21/25 13:31 midodrine AdvReac Mild Rash Verified 06/21/25 13:31 Home Medications ?Medication ?Instructions ?Recorded ?Confirmed ?Type omeprazole 20 mg capsule,delayed 20 mg PO BID 05/11/25 06/21/25 History release sertraline 100 mg tablet 100 mg PO HS 05/11/25 06/21/25 History PNV 153-FA 400 mcg-om3 35 mg-dha 2 tablet PO DAILY 06/08/25 06/21/25 History 25 mg-epa 5 mg-fish oil chew tablet ( Gummies) Laboratory Tests 06/27/25 12:03 WBC 9.5 K/mm3 (4.5-10.0) RBC 3.69 L M/mm3 (4.2-5.4) Hgb 9.0 L g/dL (12.0-15.0) Hct 29.6 L % (37.0-47.0) MCV 80.2 fl (80-100) MCH 24.4 L pg (26-34) MCHC 30.4 L g/dl (32-36) RDW 15.9 H % (11.5-14.5) Plt Count 178 k/mm3 (150-375) MPV 10.9 H fl (7.4-10.4) Immature Gran % (Auto) 0.5 % (0-0.5) Neut % (Auto) 66.8 % (45.5-73.1) Lymph % (Auto) 26.1 % (18.3-44.2) [place] % (Auto) 6.1 % (2.6-8.5) Eos % (Auto) 0.3 % (0-4.4) Baso % (Auto) 0.2 % (0.2-1.2) Lymph # (Auto) 2.48 K/mm3 (0.9-3.2) [place] # (Auto) 0.6 K/mm3 (0.1-0.6) Eos # (Auto) 0.0 K/mm3 (0-0.3) Baso # (Auto) 0.0 K/mm3 (0.0-0.1) Abs Immat Gran (auto) 0.05 H K/mm3 (0.00-0.031) Absolute Neuts (auto) 6.3 K/mm3 (1.3-6.7) Absolute Nucleated RBC 0.020 H K/mm3 (0.0-0.012) Nucleated RBC % 0.2 % (0.0-0.2) Syphilis IgG/IgM Ab Non-reactive (Nonreactive) Blood Type O Positive Antibody Screen Negative Patient hx anesthesia problems: none Family hx anesthesia problems: none Results Review: All pre-operative results and documents have been reviewed as part of the pre-operative evaluation. [facility] Past Medical History Medical History Postural orthostatic tachycardia syndrome History of kidney stones Gestational diabetes mellitus (GDM) GERD (gastroesophageal reflux disease) Frequent headaches Anxiety and depression Surgical History Surgical History History of placement of ear tubes History of tonsillectomy Family History Family History Father Hypertension Diabetes mellitus Cerebrovascular accident Grandparent Hypertension Diabetes mellitus Congestive heart failure Sibling Hypothyroid Social History Social History Smoking status: Never smoker Substance use: never Do You Feel Safe in your Home?: Yes Lack of Transportation: No Lack of Food: Never True Current Housing: I Have Housing Concerned About Future Housing: No Difficulty Paying Gas/Electric Bills: No Difficulty Paying for Meds: No Currently Unemployed: No Education: Grade School Difficulty w/ Childcare or Family Care: No Spiritual care concerns: No Anes - Eval Final PreProcedure Day of Procedure 06/27/25 15:19 Patient weight: obese Heart: regular rate and rhythm Lungs: clear to auscultation and normal air movement Airway: Mallampati scale class II Neurological: alert and oriented ASA classification: III Emergent: no Anesthetic plan: proceed Anesthesia type and monitoring: regional epidural and standard monitoring Results Review: All pre-operative results and documents have been reviewed as part of the pre-operative evaluation. Informed Consent: The patient's anesthetic plan and its attendant risks and benefits were discussed with the patient/family/POA. Questions were solicited and answers provided to the satisfaction of the patient/family/POA.
[2025-06-27] MEDS: ONDANSETRON INJ 4 MG/2 ML VIAL IV PUSH (16:25)
--- NOTE | 2025-06-27 17:06 | PM.OBPNLAB ---
Pain Control Date/time seen: 06/27/25 16:30 Comfortable with epidural. Pelvic Exam Dilation (cm): 5 Effacement (%): 50 station: -2 Comments: IUPC placed Contractions Contraction frequency: 4 Status status: Category l Assessment and Plan Comments: Augment labor as needed.
--- NOTE | 2025-06-27 18:01 | PM.OBPRVD ---
OB - Vaginal Delivery Note Procedure Delivery date: 06/27/25 Induction method: None Delivery augmentation: Pitocin Delivery monitor: External FHT, External Uterine and Internal Uterine Episiotomy description: None Laceration Description: None Specimen: Yes (cord blood, placenta) Quantitative Blood Loss (ml): 240 Anesthesia type: Epidural Disposition: PACU Complications: None Narrative: 24 y/o at 38 1/7 weeks gestation who presented to the hospital after a gush of fluid. SROM was diagnosed. Labor was then augmented with IV oxytocin. AROM of the forebag was performed with return of clear fluid. She received an epidural for pain control. Her labor progressed and her cervix dilated completely. She pushed with good effort and delivered the 's head to the perineum, followed by the body. The nose and mouth were bulb suctioned. After a delay, the cord was clamped and cut. The was handed off the field. Cord blood was collected. The placenta delivered spontaneously and was grossly normal in appearance. The usual 3 vessel cord was noted. There were no lacerations. Needle and instrument counts were correct. The patient was taken to recovery room in stable condition. The went to the nursery in stable condition. I was present and scrubbed for the entire delivery. Baby Date of : 06/27/25 Time of : 17:47 Gestational Age by Date: 37 Infant gender: Female presentation: vertex position: Left Occiput Anterior Placenta delivery description: Spontaneous Cord Vessel Description: 3 Vessels
--- NOTE | 2025-06-27 18:07 | P.DS_ITS ---
DS: Admitting Diagnosis Discharge Date 06/28/25 Admitting Diagnosis IUP at 38 1/7 weeks SROM DS: Discharge Diagnosis Discharge Diagnosis (1) (normal spontaneous vaginal delivery): Code(s): O80 - Encounter for full-term uncomplicated delivery Status: Acute OB - DS: Summary OB Procedures : None OB Procedures Intrapartum: Spontaneous Vag Delivery OB Procedures: : None Peripartum Data Laceration Description: None Episiotomy description: None Time Spent with Patient Time attestation: Total time spent providing and/or coordinating discharge services: DS: Data Data Completed and Pending Labs on day of discharge: Labs from last 24 hours 06/27/25 12:03 WBC 9.5 RBC 3.69 L Hgb 9.0 L Hct 29.6 L MCV 80.2 MCH 24.4 L MCHC 30.4 L RDW 15.9 H Plt Count 178 MPV 10.9 H Immature Gran % (Auto) 0.5 Neut % (Auto) 66.8 Lymph % (Auto) 26.1 [place] % (Auto) 6.1 Eos % (Auto) 0.3 Baso % (Auto) 0.2 Lymph # (Auto) 2.48 [place] # (Auto) 0.6 Eos # (Auto) 0.0 Baso # (Auto) 0.0 Abs Immat Gran (auto) 0.05 H Absolute Neuts (auto) 6.3 Absolute Nucleated RBC 0.020 H Nucleated RBC % 0.2 Syphilis IgG/IgM Ab Non-reactive Blood Type O Positive Antibody Screen Negative Discharge Plan Discharge Attending physician on discharge: Mau Roa Discharging Clinician: Mau Roa Patient Disposition: Home Activity: pelvic rest Diet: regular Discharge Instructions: Call or return if temperature above 100.4? F, increased abdominal pain, increased vaginal bleeding or any new problems. Patient Language: [place] Stand Alone Forms: General Discharge Information Follow-up/Referrals: Mau Roa MD [Physician, BORING INSPECTOR] - 6 Weeks Discharge Medications: New ibuprofen 600 mg tablet 600 mg PO Q6H PRN (Reason: cramps) Qty: 30 0RF ferrous sulfate 325 mg (65 mg iron) tablet 325 mg PO DAILY Qty: 30 0RF Continued sertraline 100 mg tablet 100 mg PO HS omeprazole 20 mg capsule,delayed release(DR/EC) 20 mg PO BID Gummies 400 mcg-35 mg- 25 mg-5 mg tablet,chewable 2 tablet PO DAILY Date of admission: 06/27/25 10:49 Primary Care Provider: Kurt,Edinson Tabor Admitting Provider: Mau Roa Attending physician on admission: Mau Roa Condition: Stable
[2025-06-27] MEDS: OXYTOCIN 30 UNITS/NS 500 ML 30 UNITS/500 ML BAG 125 UNITS IV CONT (18:34)
--- NOTE | 2025-06-27 19:12 | S_PTH ---
PATIENT: Codi Keller LOC: ANHOB2 U#:[id number] AGE/SX: 24/F ROOM: 280 RE06/27/[address]: Mau Roa MD : 2000 BED: 00 DIS: 06/28/2025 SPEC #: [id number] RECD: 06/28/25 08:07 STATUS: IVANNA REQ #: [id number] JAIDA: 06/27/25 19:[address]: Mau Roa DEPT: [facility] Surgical RECD BY: Xochilt Lopez ENTERED: 06/28/25 08:08 SP TYPE: Surgical OTHR DR: Edinson HicksMD Tissues: A - Placenta Procedures: Hematoxylin and Eosin Stain Gross and Microscopic Level 5
--- NOTE | 2025-06-27 21:15 | OBPPTRN ---
Patient transferred to post room #280 via [facility] [place] [place]. Support person present. Oriented to unit, room, information board, rooming in, admission packet and security measures. Patient verbalizes understanding.
[2025-06-27] MEDS: SERTRALINE HCL 50 MG TABLET 100 MG PO (21:52)
[2025-06-28 00:45] VITALS: BP 94/63; PULSE 69; RESP 16; TEMP 36.5; O2SAT 97
[2025-06-28 03:45] VITALS: BP 92/57; PULSE 75; RESP 18; TEMP 36.7; O2SAT 98
[2025-06-28 05:08] LABS: Hematocrit 27.2 % (37.0-47.0); Hemoglobin 8.0 g/dL (12.0-15.0)
--- NOTE | 2025-06-28 08:30 | PC.NURSE ---
Patient called out for assistance with waking baby to feed. She has baby unwrapped and has been trying for about 30 minutes to wake her, using a cool wipe and talking to and stimulating baby. Encouraged mom to take a break now and try again in another half hour when baby is more ready to feed. She is offered the option of wrapping baby or doing skin to skin at this time. Sibling is on his way to visit and patient will call out again for assistance when needed. Primary RN updated.
[2025-06-28 08:45] VITALS: BP 95/66; PULSE 77; RESP 16; TEMP 36.9; O2SAT 98
[2025-06-28] MEDS: DOCUSATE SODIUM 100 MG CAPSULE PO ×2 (10:15→17:42)
[2025-06-28] MEDS: MULTIVIT/MIN/PREN/FOL AC/IRON TABLET 1 TAB PO (10:16)
--- NOTE | 2025-06-28 10:30 | PC.NURSE ---
Breast pump provided due to [maternal preference]. Instructions given on cleaning, care, usage, that there should be no pain, pumping schedule for milk production, collection, and storage of human milk. Patient was assessed for correct placement, flange size, to pump for adequate milk production every 3 hours (8 times in 24 hours) 1-2 times at night. Mother knows to pump any time baby does not feed at breast.?She has a breast pump at home. Mother voiced understanding of the education shared along with mom/baby guide for additional resource information. Reported to the Primary RN.
[2025-06-28 12:33] VITALS: BP 99/60; PULSE 74; RESP 18; TEMP 37.2; O2SAT 97
--- NOTE | 2025-06-28 15:40 | PC.NURSE ---
Patient called out for feeding assistance. When I entered the room, she was finishing supplementing baby with formula. Baby was able to latch and nurse for 10 minutes on one breast and 5 minutes on the other breast. She starts with the shield and then removes it and latches baby to the breast. Mom was feeling uncertain if she should supplement when baby was fussy after coming off the breast. Discussed with mom that if she desires to 'top off' baby with formula after , it is an option that can work alongside . Mom knows that her breasts need to be stimulated consistently every three hours and that if baby does not breastfeed she should pump. She is also advised to keep baby familiar with the breast by offering it at each feeding so that they can practice. We reviewed bottle flow preference and how the nipple shield helps babies bridge from bottle to breast. Patient is feeling more confident after we spoke and she had her questions answered. She is supported to feed baby in a way that works for them. She will call out for any other questions or needs. Primary RN updated.
--- NOTE | 2025-06-28 15:53 | P.PNOB_ITS ---
OB - PN: Subj Subjective Date/time seen: 06/28/25 15:53 Narrative: Pain OK. Would like to go home. OB - PN: Obj Data Labs 06/28/25 03:40 Labs: Laboratory Results - last 24 hr 06/28/25 03:40 Hgb 8.0 L Hct 27.2 L OB - PN A/P Plan day: 1 Comments: A: PPD#1, doing well. Wants to go home. P: Home to f/u 6 weeks. Exam 2 Psych: Other: AVSS ABD soft, nontender, fundus firm EXT nontender
[2025-06-30 10:10] VITALS: BP 114/76; PULSE 99; RESP 18; TEMP 36.6; O2SAT 100
== END 2025-06-28 19:20 | disposition home or self-care (01) | DRG 807 ==
LOC: ANHOBOP 10:52 → ANHOBPP 10:54 → ANHOBOP 11:22 → ANHLDR 11:22 → ANHOB2 21:16
PROVIDERS: Admitting Provider Obstetrics & Gynecology; PCP Internal Medicine; Visit Provider Obstetrics & Gynecology
DX: O80 Encounter for full-term uncomplicated delivery (principal); Z37.0 Single live birth; Z3A.38 38 weeks gestation of pregnancy
CPT/HCPCS: 36415; 85014; 85018; 85025; 86593; 86850; 86900; 86901; 88307; 99199; A9270; J2405; J2590; J2795; J7120

== ENCOUNTER 2025-07-06 17:28 | Emergency (ER) | payer OTHER, SELFPAY ==
--- NOTE | ~2025-07-06 | US_ITS ---
EXAMINATION:US venous doppler LE RT INDICATION:Calf pain for 9 days TECHNIQUE: Multiple grayscale, color flow and Doppler images of the right lower extremity deep venous systems were obtained and reviewed. COMPARISON:No prior studies for comparison. FINDINGS: The popliteal veins demonstrate normal respiratory variation, augmentation and compressibility. Color flow is also seen within the posterior tibial, peroneal, and profunda veins. The patient refused evaluation of the common femoral and profunda femoral veins. The greater saphenous vein is also not examined. IMPRESSION: 1: No lower extremity deep venous thrombosis. Limited study. Reviewed, dictated and finalized at location O.
--- NOTE | ~2025-07-06 | CT_ITS ---
EXAMINATION: CT abdomen pelvis w con DATE: 07/06/2025 19:58 INDICATION: Suprapubic pain. 9 days . TECHNIQUE: Computed tomography (CT) of the abdomen and pelvis was performed with 100 cc Omnipaque 350 intravenous contrast. The dose-length product was 445.92 mGy-cm. Automated exposure control and iterative reconstruction technique were employed. COMPARISON: 03/13/2022. FINDINGS: Lung bases unremarkable. Heart size normal. No significant pleural or pericardial effusion. Fatty infiltration of the liver. Gallbladder is present. The spleen, pancreas, adrenal glands are unremarkable. There are small right renal cysts. There are small fat locules in the pelvis with circumscribed margins and mild surrounding inflammation, consistent with epiploic appendigitis, insinuated between the uterus and rectum. No significant vascular abnormality. No lymphadenopathy. No acute osseous abnormality.. Nonobstructive bowel gas pattern. There is a fat-containing umbilical hernia. Enlarged uterus consistent with state with fluid in the endometrium. There is a right pars defect at L5. IMPRESSION: 1. Small fat locules in the pelvis with circumscribed margins and mild surrounding inflammation, consistent with epiploic appendigitis, insinuated between the uterus and rectum. Reviewed, dictated and finalized at location O. IMPRESSION: 1. Small fat locules in the pelvis with circumscribed margins and mild surround ing inflammation, consistent with epiploic appendigitis, insinuated between the uterus and rectum.
--- NOTE | ~2025-07-06 | US_ITS ---
CORRECTED REPORT corrected examination description to US pelvic complete [facility] 07/08/2025 This report was recreated on 07/08/2025. Original report was C EXAMINATION: US pelvic complete INDICATION: Pelvic pain. 9 days . Comparison:No prior studies for comparison. TECHNIQUE: Multiple transabdominal and endovaginal sonographic images of the pelvis performed. FINDINGS: The uterus measures 13.3 x 8.4 x 10.8 cm. The endometrial complex measures endometrium is thickened and fluid-filled measuring 2.2 cm.. The right ovary measures 3 x 2 x 3 cm with normal vascular flow. The left ovary not visualized. There is no free fluid in the pelvis. There are no abnormal masses seen on either side. IMPRESSION: 1. Thickened fluid-filled endometrium. Cannot exclude retained products of conception. 2: Enlarged uterus consistent with state. Reviewed, dictated and finalized at location O. IMPRESSION: 1. Thickened fluid-filled endometrium. Cannot exclude retained products of conc eption. 2: Enlarged uterus consistent with state.
[2025-07-06 17:30] VITALS: BP 107/74; PULSE 109; RESP 16; TEMP 36.7; O2SAT 98
--- OUTSIDE RECORDS SUMMARY | 2025-07-06 17:31 | XMS_ITS | Clinical Summary ---
Author Organization [facility] Address [address] [place] [address] Phone Care Team Providers Care Driver/Guide Name Role Phone Pcp, No Primary Care [...] Comments Blood Pressure 128/64 09/23/2019 10:54 AM FABRICS AND MATERIAL CUTTER Pulse 81 09/23/2019 10:54 AM FABRICS AND MATERIAL CUTTER Temperature 36.8 C (98.2 F) 09/23/2019 10:54 AM FABRICS AND MATERIAL CUTTER Respiratory Rate 18 09/23/2019 10:54 AM FABRICS AND MATERIAL CUTTER Oxygen Saturation 100% 09/23/2019 10:54 AM FABRICS AND MATERIAL CUTTER Inhaled Oxygen Concentration - - Weight 52.2 kg (115 lb) 09/23/2019 10:54 AM FABRICS AND MATERIAL CUTTER Height 162.6 cm (5' 4) 09/23/2019 10:54 AM FABRICS AND MATERIAL CUTTER Body Mass Index 19.74 09/23/2019 10:54 AM FABRICS AND MATERIAL CUTTER Plan of Treatment Health Maintenance Due Date Last Done Comments Annual Depression Screening 2010 HPV Vaccines (1 - 3-dose series) 2014 Annual Physical 2017 Hepatitis C Antibody Screen 2017 DTap/Tdap/Td Vaccines (1 - Tdap) 2018 Cervical Cancer Screening 2020 Flu Vaccine (#1) 07/04/2025 Insurance [facility] [id number] Care Teams Driver/Guide Relationship Specialty Start Date End Date Pcp, No PCP - General 09/23/19
--- OUTSIDE RECORDS SUMMARY | 2025-07-06 17:31 | XMS_ITS | Encounter Summary ---
Author Organization [facility] Healthcare Address [address] [place] [address] Care Team Providers Care Copy Manager Name Role Phone Edinson Hicks MD Primary Care Provider + Encounter Details Date Type Department Care Team (Late st Contact Info) Description 04/30/2025 Orders Only [facility] [place] [facility] Health Information Management [address] [place] [id number] Scanning, Provider Social History Tobacco Use Types [...] on file Legal Sex Female 9:36 PM TRIPLE VALVE TESTER Gender Identity Female 09/04/2021 9:58 AM CDT [...] on filedocumented in this encounter Care Teams Copy Manager Relationship Specialty Start Date End Date Edinson Hicks MD [address] [place] [address] PCP - General Internal Medicine 04/02/24 documented as of this encounter
--- OUTSIDE RECORDS SUMMARY | 2025-07-06 17:31 | XMS_ITS | Clinical Summary ---
Author Organization [facility] [address] [facility] Address [address] [facility] [place] [address] Care Team Providers Care Electric Tape Slitter Name Role Phone Edinson Hicks MD Primary [...] CDT): Doing well. One year . Seeing bed manager for Pap. CMP was normal 6 months [...] management. Assessment & Plan (11/09/2020 10:15 AM AIRPLANE FIRST OFFICER): Highly suspicious for gluten intolerance. I advised [...] that. Assessment & Plan (10/16/2021 9:49 AM AIRPLANE FIRST OFFICER): Having some breakthrough with Paxil. Will start Buspirone 7.5 mg twice a day. Assessment & Plan (11/27/2020 3:11 PM AIRPLANE FIRST OFFICER): Start on Paxil 10 mg two weeks ago. Due to worsening depression I am increasing it to 20 mg a day. Reassess in 4 weeks. Assessment & Plan (11/09/2020 10:23 AM AIRPLANE FIRST OFFICER): Couldn't tolerate zoloft, will change to paxil Assessment & Plan (09/29/2019 7:47 AM AIRPLANE FIRST OFFICER): Uncontrolled. Will increase sertraline to 150 mg a day Assessment & Plan (05/14/2019 10:43 AM CDT): Not improving, but stable. Cont current treatment. Letter for real estate executive assistant dog approved. Assessment & Plan (02/23/2019 10:22 [...] that. Assessment & Plan (10/12/2021 6:56 AM AIRPLANE FIRST OFFICER): Stable on Paxil Assessment & Plan (11/27/2020 3:21 PM AIRPLANE FIRST OFFICER): Worsening. Scored 20 on PHQ-9. I suggested [...] 10/16/2021 Assessment & Plan (10/16/2021 9:38 AM AIRPLANE FIRST OFFICER): Highly recommended that she get the COVID-19 vaccine. Tachycardia 10/16/2021 04/06/2024 Assessment & Plan (02/27/2023 11:54 AM CDT): Stable on metoprolol. Assessment & Plan (10/16/2021 10:16 AM AIRPLANE FIRST OFFICER): EKG shows normal sinus rhythm. Normal EKG. [...] 02/14/2021 Assessment & Plan (11/27/2020 3:13 PM AIRPLANE FIRST OFFICER): Mild, new onset 7 days ago. Due [...] 11/09/2020 Assessment & Plan (09/29/2019 7:47 AM AIRPLANE FIRST OFFICER): Cont albuterol inhaler q 4-6 hours as needed. Will add antibiotic. Neck pain 09/29/2019 02/27/2023 Assessment & Plan (02/27/2023 11:55 AM CDT): resolved Assessment & Plan (09/29/2019 7:50 AM AIRPLANE FIRST OFFICER): Naproxen 220 mg 2 tablets 2 times [...] Department Care Team Description 06/08/2025 Orders Only [facility] Health Information Management [address] [place] [address] Scanning, Provider 06/02/2025 Orders Only [facility] Health Information Management [address] [place] [address] Scanning, Provider 05/24/2025 Orders Only [facility] Health Information Management [address] [place] [address] Scanning, Provider 05/16/2025 Orders Only [facility] Health Information Management [address] [place] [address] Scanning, Provider 04/30/2025 Orders Only [facility] Health Information Management [address] [place] [address] Scanning, Provider from Last 3 Months Immunizations [...] on file Legal Sex Female 9:36 PM AIRPLANE FIRST OFFICER Gender Identity Female 09/04/2021 9:58 AM CDT [...] - Final from Last 3 Months Insurance [employer] OPEN ACCESS [employer] OPEN ACCESS Care Teams Electric Tape Slitter Relationship Specialty Start Date End Date Edinson Hicks MD [address] [place] [address] PCP - General Internal Medicine 04/02/24
--- OUTSIDE RECORDS SUMMARY | 2025-07-06 17:31 | XMS_ITS | Clinical Summary ---
Author Organization [facility] Address [address] [place] [address] Care Team Providers Care Trolley Car Operator Name Role Phone Unavailable Primary Care Provider Unavailabl e Source Comments [facility],non-owned Affiliates and Associated Physician Practices is amultiple site organization consisting of ambulatory clinics and hospital sitesin [place], [place], [place] and [place]. This disclosure is being madepursuant to the Care Everywhere program and may not contain all information available regarding this patient. Last updated 18.[facility] Allergies Active Allergy Reactions Criticality Noted Date Comments Latex Rash Medium 06/13/2025 Midodrine Rash Medium 06/13/2025 Skin Adhesives Urticaria Medium 06/13/2025 Encounters Date Type Department Care Team Description 06/17/2025 1:00 PM CDT - 06/17/2025 11:59 PM CDT Hospital Encounter [facility] [address] [place], [place] [id number] Adolph Valdes DO PULP BEATER Discharge Disposition: Home or Self Care from [...] 19+ 3-dose series) 2018 PAP SMEAR 2020 DEPRESSION SCREENING 11/03/2024 OB-ONE HOUR GLUCOSE 04/06/2025 OB-TDAP CURRENT 04/13/20252022, 08/25/2014 OB-RHOGAM INJECTION 04/20/2025 OB-GROUP B STREP SCREEN 06/08/2025 COVID-19 VACCINE (2 - 2024-2 6 season) 2025 07/09/2023 INFLUENZA VACCINE (#1) 2025 08/25/2020 ZOSTER VACCINE [...] third trimester, antepartum (HCC) Encounter for ultrasound ([facility]) from Last 3 Months Results [...] 6 lb 12 oz EFW by Hadlock ([id number]) appropriate Growth Overview Exam date GA BPD (mm) HC (mm) AC (mm) FL (mm) HL (mm) EFW (g) 06/17/2025 36w 5d 89.5 49% 324.7 24% 332.4 74% 71.3 43% 61.1 41% 3048 58% Anatomy The following structures appear normal: Head / Neck Cranium. Thalami. Heart / Thorax 3-vessel view. 9-beljxg-zyewbhm view. Situs. Aortic arch view. Diaphragm. Abdomen [...] she did. She is being followed at [facility] and has had repeated ultrasounds and MCA is all normal with testing at [facility] her most recent NST was earlier this [...] parasitic diseases complicating , Parvovirus, unspecified Procedures 82916: US Preg Uterus Detailed 68760: MCA Doppler 68425: Biophysical Profile W NST Metrigo PACS Anatomical Region Laterality Modality Other 06/17/2025 1:03 PM CDT us Mau Roa MD [facility] ORDERABLES Edited Result - Final from Last 3 Months Insurance [employer] CIGNA SELF PAY NO INSURANCE Member Subscriber Plan / Payer (Ef fective for All Dates) Name:Codi Wu Member ID:Not on file Relation to Subscriber:Not on file Name:CODI WU Subscriber ID:Not on file (Home) Address: [address] [place] [address] Payer ID:Not on file Group ID:Not on file Type:Self Pay Address: [place] [place]
--- OUTSIDE RECORDS SUMMARY | 2025-07-06 17:31 | XMS_ITS | Encounter Summary ---
Author Organization [facility] Address [address] [place] [id number] Care Team Providers Care Facing Slitter Name Role Phone Unavailable Primary Care Provider Unavailabl e Encounter Details Date Type Department Care Team (Late st Contact Info) Description 11/06/2023 [employer] Message Enc [facility] Multispecialty Care - [address] [place] [address] Ezekiel, [facility] Provider Medication Social History Tobacco Use Types Packs/Day Years Used Date Smoking Tobacco: Never Passive Smoke Exposure: Never Smokeless Tobacco: Never Comments:Counseled by Dr. aVlerie grewal. Alcohol Use Standard Drinks/Week Comments Never [...] Depression Total Score: 10 023 1:49 PM GLOVE BOARDER documented as of this encounter
--- OUTSIDE RECORDS SUMMARY | 2025-07-06 17:31 | XMS_ITS | Encounter Summary ---
Author Organization [facility] Care Team Providers Care Bridge Engineer Name Role Phone Edinson Hicks MD Primary Care Provider + Edinson Hicks MD Primary Care Provider + Encounter Details Date Type Department Care Team (Latest Contact Info) Description 11/09/2018 Orders Only [facility] CLINCON[facility] ProviderGladis MD [address] [place] [id number] Social History Tobacco Use Types Packs/Day Years Used Date Smoking Tobacco: Never Comments Unknown Sex and Gender Information Value Date Recorded Sex Assigned at Not on file Legal Sex Female 9:36 PM CUSTODIAL MAINTENANCE WORKER Gender Identity Female 09/04/2021 9:58 AM CDT Sexual Orientation Straight 09/04/2021 9: 58 AM CDT documented as of this encounter Plan of Treatment Not on file documented as of this encounter Procedures Procedure Name Priority Date/Time Associated Diagnosis Comments COLONOSCOPY - SCAN 11/09/2018 12 :00 AM CUSTODIAL MAINTENANCE WORKER documented in this encounter Results * COLONOSCOPY - SCAN (11/09/2018 12:00 AM CUSTODIAL MAINTENANCE WORKER) Narrative 11/09/2018 12:00 AM CUSTODIAL MAINTENANCE WORKER Ordered by an unspecified provider. Historical Provider Final Res ult documented in this encounter Visit Diagnoses Not on filedocumented in this encounter Additional Health Concerns Infection Onset Date Last Indicated Resolved Time COVID: Suspected 09/04/2021 09/04/2021 09/18/2021 3:05 AM CUSTODIAL MAINTENANCE WORKER documented as of this encounter Care Teams Bridge Engineer Relationship Specialty Start Date End Date Edinson Hicks MD [address] [place] [address] PCP - General Internal Medicine 02/15/19 10/22/23 Edinson Hicks MD [address] [place] [address] PCP - General Internal Medicine 04/02/24 documented as of this encounter
--- OUTSIDE RECORDS SUMMARY | 2025-07-06 17:31 | XMS_ITS | Clinical Summary ---
Author Organization [facility] Address [address] [place] [address] Care Team Providers Care Pinion Sorter Name Role Phone Edinson Hicks MD Primary [...] Comments Blood Pressure 110/76 10/13/2020 2:48 PM INSTRUCTIONAL DESIGN SPECIALIST Pulse 93 10/13/2020 2:48 PM INSTRUCTIONAL DESIGN SPECIALIST Temperature 36.9 C (98.4 F) 10/13/2020 2:48 PM INSTRUCTIONAL DESIGN SPECIALIST Respiratory Rate 18 10/13/2020 2:48 PM INSTRUCTIONAL DESIGN SPECIALIST Oxygen Saturation 96% 10/13/2020 2:48 PM INSTRUCTIONAL DESIGN SPECIALIST Inhaled Oxygen Concentration - - Weight 53.8 kg (118 lb 11.2 oz) 10/13/2020 2:48 PM INSTRUCTIONAL DESIGN SPECIALIST Height 165.1 cm (5' 5) 10/13/2020 2:48 PM INSTRUCTIONAL DESIGN SPECIALIST Body Mass Index 19.75 10/13/2020 2:48 PM INSTRUCTIONAL DESIGN SPECIALIST Plan of Treatment Health Maintenance Due Date Last Done Comments Hepatitis C Virus (HCV) Screening 1999 TdaP Immunization 1999 Human Papillomavirus (HPV) Immunization (1 - 3-dose series) 2014 Hepatitis B Immunization (1 of 3 - 19+ 3-dose series) 2018 Influenza Immunization (#1) 2025 SARS-COV-2 Immunization ( season) 2025 Respiratory Syncytial Virus (RSV) Immunization (Adult) (1 - 1-dose 75+ series) 2074 Meningococcal Immunization (ACWY) Aged Out No longer eligible based on patient's age to complete this topic Pneumococcal Immunization Combined Aged Out No longer eligible based on patient's age to complete this topic Rotavirus Immunization Aged Out No lo nger eligible based on patient's age to complete this topic Care Teams Pinion Sorter Relationship Specialty Start Date End Date Edinson Hicks MD [address] [place] [id number] PCP - General Internal Medicine 05/17/20
--- OUTSIDE RECORDS SUMMARY | 2025-07-06 17:31 | XMS_ITS | Clinical Summary ---
Author Organization [facility] Address [facility] [place] [address] Care Team Providers Care Kayak Maker Name Role Phone Unavailable Primary Care Provider [...] Comments Blood Pressure 109/96 11/26/2023 5:29 PM BOTTLING LINE OPERATOR Pulse 82 11/26/2023 5:29 PM BOTTLING LINE OPERATOR Temperature 36.7 C (98 F) 11/26/2023 5:29 PM BOTTLING LINE OPERATOR Respiratory Rate 18 11/26/2023 5:29 PM BOTTLING LINE OPERATOR Oxygen Saturation 100% 11/26/2023 5:29 PM BOTTLING LINE OPERATOR Inhaled Oxygen Concentration - - Weight 79.4 kg (175 lb) 11/26/2023 5:29 PM BOTTLING LINE OPERATOR Height 162.6 cm (5' 4) 11/26/2023 5:29 PM BOTTLING LINE OPERATOR Body Mass Index 30.04 11/26/2023 5:29 PM BOTTLING LINE OPERATOR Plan of Treatment Health Maintenance Due [...] 07/09/2023 Annual Physical 10/22/2024 10/22/2023 PHQ-2 (Physician [place]) 11/03/2024 11/26/2023 DTaP, Tdap and Td Vaccines ( 3 - Td or Tdap) 01/23/2033 01/23/2023, 08/25/2014 Meningococcal B Vaccine Aged Out No l onger eligible based on patient's age to complete this topic Meningococcal Vaccine Aged Out No folrin rosalva eligible based on patient's age to [...]
--- OUTSIDE RECORDS SUMMARY | 2025-07-06 17:31 | XMS_ITS | Encounter Summary ---
Author Organization [facility] Address [address] [place] [id number] Care Team Providers Care Esthetics Instructor Name Role Phone Unavailable Primary Care Provider Unavailabl e Encounter Details Date Type Department Care Team (Latest Contact Info) Description 12/01/2023 MyChart Message Enc [facility] - [place] [address] [id number] [address] [place] [address] Adelaide Adler MD [address] [facility] [address] [place] [address] Medication Request Social History Tobacco Use Types [...] Total Score: 10 10/22/2 023 1:[address]ER documented as of this encounter
[2025-07-06 17:49] VITALS: BP 102/84; PULSE 102; RESP 20; O2SAT 100
[2025-07-06 18:34] VITALS: BP 104/74; PULSE 99; RESP 14; O2SAT 95
--- NOTE | 2025-07-06 18:42 | ED_ITS ---
HPI - Female Genitourinary General Chief complaint: Urogenital-Female Stated complaint: pelvic pain, 9 days PP, R calf pain Time Seen by Provider: 07/06/25 18:02 History of Present Illness HPI Narrative: 24-year-old female who is 9 days from a vaginal delivery by Dr. Roa presents emergency department for pelvic pain, pain with urination and right calf pain for the past 2 days. Patient states she has had pain in her lower abdomen and pain in her abdomen with urination. She is concerned she has urinary tract infection. She notes that she had to be straight cathed due to urinary retention from the epidural, however feels that she has been emptying her bladder fully since. She denies dysuria or hematuria. She states she is very light vaginal bleeding that only occurs with breast feeding. She states she has had some brown ?sticky? vaginal discharge which is typical for her . She denies fever but states she has had some chills but also believes this may be due to hormones. She reports some nausea but no vomiting. Patient also is endorsing some tenderness to the right calf. She denies injury, trauma, skin changes or swelling. She denies history of VTE. Denies chest pain and shortness of breath. Related Data Home Medications ?Medication ?Instructions ?Recorded ?Confirmed ?Last Taken ?Type omeprazole 20 mg capsule,delayed 20 mg PO BID 05/11/25 06/21/25 06/14/25 History release sertraline 100 mg tablet 100 mg PO HS 05/11/2506/14/25 History PNV 153-FA 400 mcg-om3 35 mg-dha 2 tablet PO DAILY 04/2706/21/25 06/14/25 History 25 mg-epa 5 mg-fish oil chew tablet ( Gummies) Allergies Allergy/AdvReac Type Severity Reaction Status Date / Time adhesive Allergy Hives Verified 07/06/25 18:25 Latex, Natural Rubber AdvReac Mild Rash Verified 07/06/25 18:25 midodrine AdvReac Mild Rash Verified 07/06/25 18:25 Review of Systems 2 Review of Systems: All systems reviewed & are unremarkable except as noted in HPI and below PMFSH Past Medical History Medical History Postural orthostatic tachycardia syndrome History of kidney stones Gestational diabetes mellitus (GDM) GERD (gastroesophageal reflux disease) Frequent headaches Anxiety and depression Surgical History Surgical History History of placement of ear tubes History of tonsillectomy Family History Family History Father Hypertension Diabetes mellitus Cerebrovascular accident Grandparent Hypertension Diabetes mellitus Congestive heart failure Sibling Hypothyroid Social History Social History Smoking status: Never smoker Substance use: never Do You Feel Safe in your Home?: Yes Lack of Transportation: No Lack of Food: Never True Current Housing: I Have Housing Concerned About Future Housing: No Difficulty Paying Gas/Electric Bills: No Difficulty Paying for Meds: No Currently Unemployed: No Education: Grade School Difficulty w/ Childcare or Family Care: No Spiritual care concerns: No Exam 2 Narrative: GENERAL: Well-appearing, well-nourished, and in no acute distress. HEAD: Normocephalic, atraumatic. EYES: EOMI. ENT: Nares clear, no rhinorrhea or epistaxis. Mucous membranes moist. NECK: Supple. CHEST: Clear to auscultation. No respiratory distress. HEART: Regular rate and rhythm. No murmur heard. Normal peripheral pulses. ABDOMEN: Normoactive bowel sounds. Abdomen soft with tenderness in the suprapubic region. No rebound or rigidity. No CVA tenderness. : Chaperoned by jess Curry: Normal external genitalia. Mild amount of discharge at cervical os. No bleeding. Cervical os is closed. There is tenderness of the uterus on palpation EXTREMITIES: Normal range of motion. No edema. No tenderness to the right calf with palpation. No overlying skin changes. Negative Homans sign. DP pulses 2+. SKIN: Warm, dry, no rash. NEURO: No focal deficits. Alert and oriented x3 Course Vital Signs Vital signs: Vital Signs Temperature 98.1 F 07/06/25 17:30 Pulse Rate 109 H 07/06/25 17:30 Respiratory Rate 16 07/06/25 17:30 Blood Pressure 107/74 07/06/25 17:30 Pulse Oximetry 98 07/06/25 17:30 Oxygen Delivery Room Air 07/06/25 17:30 Temperature 97.8 F 07/06/25 19:18 Pulse Rate 70 07/06/25 19:18 Respiratory Rate 18 07/06/25 19:18 Blood Pressure 97/66 L 07/06/25 19:18 Pulse Oximetry 98 07/06/25 19:18 Oxygen Delivery Room Air 07/06/25 17:30 MDM - Female Genitourinary MDM Narrative Medical decision making narrative: 24-year-old female who is 9 days presents to the emergency department for suprapubic abdominal pain and right calf pain the past 2 days. See HPI for further history. Triage vitals with tachycardia 109 which is since improved. Patient is afebrile and nontoxic appearing. Exam is significant for the above. CBC shows mild leukocytosis of 10.3. Hemoglobin is 11.1 which is improved from prior. Chemistries with chronic elevation of alk-phos. Urinalysis without evidence of UTI. Lactic is not elevated. Lipase is normal. Pelvic ultrasound shows thickened fluid-filled endometrium, cannot exclude retained products of conception. The uterus is enlarged consistent with state. CT abdomen pelvis shows small fat locules in the pelvis with circumscribed margins and mild surrounding inflammation consistent with epiploic appendagitis, insinuated between the uterus and rectum. Patient updated on results. Received IV fluids, Zofran and Toradol. Patient voices she would like to be discharged home. I discussed case with Dr. Nazario, on-call for Dr. Desirae Becerra. She states that the findings noted on the ultrasound are typical for 9 days as well as a leukocytosis of 10.3. She does not feel the patient needs to be admitted for IV antibiotics for endometritis. She does recommend performing a pelvic exam and the patient has uterine tenderness to start the patient on Keflex for subclinical endometritis. Pelvic exam performed as noted above. Patient does have some tenderness with uterine palpation. She was started on Keflex for this. Was also started on ibuprofen and Tylenol for epiploic appendagitis. She is advised to call her OBGYN tomorrow morning for close follow-up. Discussed strict ED return precautions. Patient is agreeable with the plan and verbalized understanding. Discharged in stable condition. Lab Data 07/06/25 18:54 07/06/25 18:54 Labs: Lab Results 07/06/25 07/06/25 Range/Units 18:54 18:55 WBC 10.3 H (4.5-10.0) K/mm3 RBC 4.56 (4.2-5.4) M/mm3 Hgb 11.1 L D (12.0-15.0) g/dL Hct 37.2 (37.0-47.0) % MCV 81.6 (80-100) fl MCH 24.3 L (26-34) pg MCHC 29.8 L (32-36) g/dl RDW 17.4 H (11.5-14.5) % Plt Count 308 D (150-375) k/mm3 MPV 9.4 (7.4-10.4) fl Immature Gran % (Auto) Not Reportable Neut % (Auto) Not Reportable Lymph % (Auto) Not Reportable [place] % (Auto) Not Reportable Eos % (Auto) Not Reportable Baso % (Auto) Not Reportable Lymph # (Auto) Not Reportable [place] # (Auto) Not Reportable Eos # (Auto) Not Reportable Baso # (Auto) Not Reportable Abs Immat Gran (auto) Not Reportable Absolute Neuts (auto) Not Reportable Absolute Nucleated RBC Not Reportable Total Counted 100 Neutrophils % (Manual) 51 (46-73) % Band Neutrophils % 3 (0-6) % Lymphocytes % (Manual) 43.0 (18-44) % Monocytes % (Manual) 2 L (3-9) % Basophils % (Manual) 1 (0-1) % Nucleated RBC % Not Reportable Abs Neuts (Manual) 5.56 (1.3-6.7) K/mm3 Abs Lymphs (Manual) 4.42 (1.1-4.5) K/mm3 Abs Monocytes (Manual) 0.20 (0.1-0.90) K/mm3 Abs Basophils (Manual) 0.10 (0.0-0.1) K/mm3 Platelet Estimate Adequate (Adequate) Hypochromasia 1+ Anisocytosis 2+ Schistocytes None seen PT 12.2 (11.1-14.7) Seconds INR 0.9 APTT 27.6 (22.3-36.8) Seconds Sodium 139 (137-145) mmol/L Potassium 4.5 (3.4-5.0) mmol/L Chloride 107 (98-107) mmol/L Carbon Dioxide 22 (22-30) mmol/L Anion Gap 10 (4-12) mmol/L BUN 10 (7-17) mg/dL Creatinine 0.94 (0.7-1.0) mg/dL Estim Creat Clear Calc 80 ml/min Estimated GFR > 60 (59 - ) Glucose 78 (65-110) mg/dL Lactic Acid 0.5 L (0.7-2.0) mmol/L Calcium 9.1 (8.4-10.2) mg/dL Total Bilirubin 0.5 (0.2-1.3) mg/dL AST 26 (14-36) U/L ALT 15 (6-35) U/L Alkaline Phosphatase 187 H (38-126) U/L Total Protein 7.3 (6.3-8.2) g/dL Albumin 3.9 (3.5-5.1) g/dL Lipase 113 (23-300) U/L Urine Color Yellow (Yellow) Urine Appearance Cloudy H (Clear) Urine pH 6.0 (5.0-9.0) Ur Specific [place] 1.020 (1.001-1.035) Urine Protein Negative (Negative) mg/dL Urine Glucose (UA) Negative (Negative) mg/dL Urine Ketones Trace H (Negative) mg/dL Ur Blood (Man) Negative (Negative) Urine Nitrate Negative (Negative) Urine Bilirubin Negative (Negative) Urine Urobilinogen 0.2 (<2.0) mg/dL Leukocyte Esterase Rfl Negative (Negative) KIMBERLY/UL Urine RBC 0-2 (0-2) /hpf Urine WBC 0-5 (0-3) /hpf Ur Squamous Epith Cells None seen (Few) /hpf Urine Bacteria None seen /hpf Urine Casts 0-2 Discharge Plan Discharge Clinical Impression: Tenderness of uterus, Epiploic appendagitis Patient Disposition: Home Condition: Stable Instructions: Antibiotic Form, Endometritis (ED), Epiploic Appendagitis (ED) Additional Instructions: You were found to have findings concerning for epiploic appendagitis under CT scan which may be the source of her pain. Ultrasound showed fluid in your uterus with a thickened endometrium which may be typical for being verses a developing infection. You were started on antibiotics to cover the latter. Please take them as directed. Please follow-up closely with your OBGYN tomorrow. Return to the emergency department if you develop worsening abdominal pain, fever, you are bleeding through 1 pad or tampon an hour, or other concerning symptoms. Patient Language: Occitan Prescriptions: New cephalexin 500 mg capsule 500 mg PO Q6H Qty: 28 0RF acetaminophen 500 mg capsule 1,000 mg PO Q6H PRN (Reason: pain) Qty: 20 0RF ibuprofen 800 mg tablet 800 mg PO TID PRN (Reason: pain) Qty: 20 0RF No Action sertraline 100 mg tablet 100 mg PO HS omeprazole 20 mg capsule,delayed release(DR/EC) 20 mg PO BID Gummies 400 mcg-35 mg- 25 mg-5 mg tablet,chewable 2 tablet PO DAILY ibuprofen 600 mg tablet 600 mg PO Q6H PRN (Reason: cramps) Qty: 30 0RF ferrous sulfate 325 mg (65 mg iron) tablet 325 mg PO DAILY Qty: 30 0RF Follow-up/Referrals: Mau Roa MD [Primary Care Provider, LINUX NETWORK SYSTEMS ADMINISTRATOR]
[2025-07-06] MEDS: ONDANSETRON INJ 4 MG/2 ML VIAL IV PUSH (18:59)
[2025-07-06] MEDS: SODIUM CHLORIDE 0.9% IV 1,000 ML 999 ML IV CONT (18:59)
[2025-07-06] MEDS: KETOROLAC 30 MG/ML VIAL (*BKC) IV PUSH (19:00)
[2025-07-06 19:02] LABS: Hematocrit 37.2 % (37.0-47.0); Hemoglobin 11.1 g/dL (12.0-15.0); Mean Corpuscular HGB Conc 29.8 g/dl (32-36); Mean Corpuscular Hemoglobin 24.3 pg (26-34); Mean Corpuscular Volume 81.6 fl (80-100); Platelet Count Result 308 k/mm3 (150-375); Red Blood Count 4.56 M/mm3 (4.2-5.4); White Blood Count 10.3 K/mm3 (4.5-10.0)
[2025-07-06 19:12] LABS: Alanine Aminotransferase 15 U/L (6-35); Albumin Level 3.9 g/dL (3.5-5.1); Alkaline Phosphatase 187 U/L (38-126); Anion Gap 10 mmol/L (4-12); Aspartate Amino Transferase 26 U/L (14-36); Bilirubin,Total 0.5 mg/dL (0.2-1.3); Blood Urea Nitrogen 10 mg/dL (7-17); Calcium 9.1 mg/dL (8.4-10.2); Carbon Dioxide 22 mmol/L (22-30); Chloride 107 mmol/L (98-107); Estimated CRCL calculation 80 ml/min; Estimated Glomerular Filt Rate > 60; Glucose 78 mg/dL (65-110); Lipase 113 U/L (23-300); Potassium 4.5 mmol/L (3.4-5.0); Sodium 139 mmol/L (137-145); Total Protein 7.3 g/dL (6.3-8.2)
[2025-07-06 19:18] VITALS: BP 97/66; PULSE 70; RESP 18; TEMP 36.6; O2SAT 98
[2025-07-06 19:24] LABS: INR 0.9; Prothrombin Time 12.2 Seconds (11.1-14.7)
[2025-07-06 19:25] LABS: Partial Thromboplastin Time 27.6 Seconds (22.3-36.8)
[2025-07-06 19:27] LABS: Band Neutrophils Percent 3 % (0-6); Basophils Absolute Manual 0.10 K/mm3 (0.0-0.1); Basophils Percent Manual 1 % (0-1); Lymphocytes Absolute Manual 4.42 K/mm3 (1.1-4.5); Lymphocytes Percent Manual 43.0 % (18-44); Monocytes Absolute Manual 0.20 K/mm3 (0.1-0.90); Monocytes Percent Manual 2 % (3-9); Neutrophils Absolute Manual 5.56 K/mm3 (1.3-6.7); Neutrophils Percent Manual 51 % (46-73); Schistocytes None Seen; Total Cells Counted 100
[2025-07-06 19:28] LABS: Anisocytosis 2+; Hypochromasia 1+
[2025-07-06 19:43] LABS: Add Urine Microscopic? YES; Appearance Urine Cloudy (Clear); Glucose Urine UA Negative (Negative); Leukocyte Esterase Ur Negative LEU/UL (Negative); Nitrate Urine Negative (Negative); Non Pathogenic Casts 0-2; Specific Grav Ur 1.020 (1.001-1.035)
[2025-07-06 21:31] VITALS: BP 97/59; PULSE 61; RESP 18; TEMP 36.6; O2SAT 99
== END 2025-07-06 21:32 | disposition home or self-care (01) ==
PROVIDERS: Emergency Provider Physician Assistant; PCP Obstetrics & Gynecology
DX: O99.63 Diseases of the digestive system complicating the puerperium (principal); K63.89 Other specified diseases of intestine; O99.893 Other specified diseases and conditions complicating puerperium; N94.89 Other specified conditions associated with female genital organs and menstrual cycle; M79.661 Pain in right lower leg; K21.9 Gastro-esophageal reflux disease without esophagitis; O99.345 Other mental disorders complicating the puerperium; F41.9 Anxiety disorder, unspecified; F32.A Depression, unspecified; Z87.442 Personal history of urinary calculi; Z79.899 Other long term (current) drug therapy
CPT/HCPCS: 36415; 74177; 76830; 76856; 80053; 81001; 83605; 83690; 85025; 85610; 85730; 93971; 96361; 96374; 96375; 99284; J1885; J2405; J7030; Q9967